=== PATIENT | male | born 1945 | race Hispanic/Latino ===

== ENCOUNTER 2016-11-08 11:57 | Inpatient (IN) | payer MEDICARE ==
[2016-11-08 11:57] VITALS: BMI 21.7
--- NOTE | 2016-11-08 13:32 | ED PDOC ---
HPI: Psych/Substance Abuse Time Seen by Provider: 11/08/16 13:30 Chief Complaint (Nursing): Psychiatric Evaluation Chief Complaint (Provider): [facility] eval/social work eval ED Caveat: Acuity of Condition Additional Complaint(s): 70yo M in ED for eval- pt has been evicted from his home-according to property custodian pt is a hoarder not willing to clean infestation in home, fecal matter in home and self, spoiled food in home. pt without confusion, or medical complaints of JONES, vision changes, SP, SOB, weakness or memory loss. Past Medical History Reviewed: Historical Data, Nursing Documentation, Vital Signs Vital Signs: Last Vital Signs Temp 97.6 F 11/08/16 11:59 Pulse 66 11/08/16 11:59 Resp 18 11/08/16 11:59 BP 120/74 11/08/16 11:59 Pulse Ox 96 11/08/16 11:59 - Medical History PMH: Malignancy (Prostate CA), Osteoporosis Denies: HIV, Chronic Kidney Disease - Family History Family History: States: Unknown Family Hx - Immunization History Hx Influenza Vaccination: No - Home Medications Home Medications: Ambulatory Orders Medication Instructions Recorded Aspirin [Ecotrin] 81 mg PO DAILY #30 tabec 10/25/16 Rosuvastatin Calcium [Crestor] 20 mg PO HS #30 tab 10/25/16 - Allergies Allergies/Adverse Reactions: Allergies Allergy/AdvReac Type Severity Reaction Status Date / Time No Known Allergies Allergy Verified 11/08/16 11:58 Review of Systems ROS Statement: Except As Marked, All Systems Reviewed And Found Negative Constitutional: Negative for: Fever, Chills, Weakness, Malaise Eyes: Negative for: Vision Change Cardiovascular: Negative for: Chest Pain, Palpitations Respiratory: Negative for: Cough, Shortness of Breath Gastrointestinal: Negative for: Nausea, Vomiting, Abdominal Pain, Diarrhea, Constipation Genitourinary Male: Negative for: Dysuria Neurological: Negative for: Weakness, Numbness, Incoordination, Change in Speech , Confusion, Seizures, Altered Mental Status, Headache, Dizziness Physical Exam - Reviewed Nursing Documentation Reviewed: Yes Vital Signs Reviewed: Yes - Physical Exam Appears: Positive for: Well, Non-toxic, No Acute Distress Head Exam: Positive for: ATRAUMATIC, NORMAL INSPECTION, NORMOCEPHALIC Skin: Positive for: Normal Color, Warm, DRY Eye Exam: Positive for: EOMI, Normal appearance, PERRL ENT: Positive for: Normal ENT Inspection Neck: Positive for: Normal, Painless ROM Cardiovascular/Chest: Positive for: Regular Rate, Rhythm Respiratory: Positive for: CNT, Normal Breath Sounds Gastrointestinal/Abdominal: Positive for: Normal Exam, Bowel Sounds, Soft Back: Positive for: Normal Inspection Extremity: Positive for: Normal ROM Neurologic/Psych: Positive for: Alert, 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 Negative for: Motor/Sensory Deficits, Gait (stable) - Laboratory Results Result Diagrams: 11/08/16 14:02 11/08/16 14:02 - ECG ECG: Positive for: Interpreted By Me ECG Rhythm: Positive for: Normal QRS, Normal ST Segment, Sinus Bradycardia Interpretation Of ECG: sinus bradycardia Rate: 52 O2 Sat by Pulse Oximetry: 96 - Progress ED Course And Treament: crisis eval, medical clearance vis lab and social work referral. Medical Decision Making Medical Decision Making: Social work refereed pt to crisis for further eval. Pt c/o that he is soiling himself an house because he is having diarrhea and dec. appetite. Pt will get CT scan of abd to r/o infectious colitis process. however pt is being admitted to [facility] for adjustment d/o under MD Seth. pt is unwilling to consent for IV contrast, pt unwilling to dirnk PO contrast therefore will get Ct scan without PO or IV contrast. Ct scna show colitis. pt without WBC inn ED, no diarrhea in ED, tolerated PO well in ED case discussed with MD daily pt will be started with ciprofloxacin and metronidazol for colitis otherwise pt is medically stable for admission to [facility] floor. Disposition - Clinical Impression Clinical Impression: Colitis, Adjustment disorder - Patient ED Disposition Is Patient to be Admitted: Yes - Disposition Disposition Time: 18:23 Condition: STABLE - Pt Status Changed To: Hospital Disposition Of: Inpatient - Admit Certification Admit to Inpatient:: After my assessment, the patient will require hospitalization for at least two midnights. This is because of the severity of symptoms shown, intensity of services needed, and/or the medical risk in this patient being treated as an outpatient. - POA Present On Arrival: None
[2016-11-08 14:09] LABS: BASO % 0.5 % (0.0-2.0); EOS # 0.1 K/uL (0.0-0.7); EOS % 1.6 % (0.0-4.0); HEMATOCRIT 34.2 % (35.0-51.0); LYMPH # 1.8 K/uL (1.0-4.3); LYMPH % 21.8 % (20.0-40.0); MEAN CELL VOLUME 88.4 fl (80.0-94.0); MEAN CORPUSCULAR HEMOGLOBIN 29.3 pg (27.0-31.0); MEAN CORPUSCULAR HGB CONC 33.1 g/dL (33.0-37.0); MEAN PLATELET VOLUME 6.7 fl (7.2-11.7); MONO # 0.4 K/uL (0.0-0.8); MONO % 5.4 % (0.0-10.0); NEUT # 5.8 K/uL (1.8-7.0); NEUT % 70.7 % (50.0-75.0); RED CELL DISTRIBUTION WIDTH 15.4 % (11.5-14.5); WHITE BLOOD COUNT 8.2 K/uL (4.8-10.8)
[2016-11-08 14:26] LABS: ALKALINE PHOSPHATASE 90 U/L (38-126); ALT/SGPT 24 U/L (21-72); AST/SGOT 27 U/L (17-59); BILIRUBIN,TOTAL 0.6 mg/dl (0.2-1.3); BLOOD UREA NITROGEN 22 mg/dl (9-20); CALCIUM 9.7 mg/dL (8.4-10.2); CARBON DIOXIDE 23 mmol/L (22-30); CHLORIDE 105 mmol/L (98-107); GFR AFRICAN-AMERICAN > 60; GLUCOSE,RANDOM 96 mg/dL (75-110); POTASSIUM 4.8 MMOL/L (3.6-5.0); SODIUM 139 mmol/l (132-148); TOTAL PROTEIN 7.7 G/DL (6.3-8.2)
[2016-11-08] MEDS ORDERED: Iohexol 240 (50 ml) PO ONE (15:07)
[2016-11-08] MEDS ORDERED: Iohexol 240 (50 ml) ONE (15:43)
[2016-11-08] MEDS ORDERED: Sodium Chloride 0.9% 0 ML IV ONE (16:55)
[2016-11-08] MEDS ORDERED: Iohexol 300 100 ML IJ ONE (16:55)
[2016-11-08 17:22] LABS: RBC URINE 4 /hpf (0-3); URINE BACTERIA FEW (<OCC); URINE BILIRUBIN NEGATIVE (NEGATIVE); URINE BLOOD NEGATIVE (NEGATIVE); URINE COLOR YELLOW (YELLOW); URINE GLUCOSE (UA) NEG (Normal); URINE KETONE TRACE mg/dL (NEGATIVE); URINE LEUKOCYTE ESTERASE NEG Leu/uL (Negative); URINE PROTEIN NEGATIVE (NEGATIVE); URINE UROBILINOGEN 0.2-1.0 mg/dL (0.2-1.0); WBC URINE < 1 /hpf (0-5)
--- NOTE | 2016-11-08 18:05 | CT ---
PROCEDURE: CT Abdomen and Pelvis without contrast. HISTORY: abdominal pain with diarrhea COMPARISON: No prior similar study available for comparison. TECHNIQUE: Contiguous axial images of the abdomen and pelvis. Oral contrast was administered. No IV contrast given. Coronal and Sagittal reformats generated. Radiation dose: Total exam DLP = 1012.7 mGy-cm. FINDINGS: LOWER THORAX: Linear opacities at the lung bases likely scar tissue. LIVER: Unremarkable. No gross lesion or ductal dilatation. GALLBLADDER AND BILE DUCTS: No evidence of acute cholecystitis. PANCREAS: Unremarkable. No mass. No ductal dilatation. SPLEEN: Unremarkable. No splenomegaly. ADRENALS: Unremarkable. KIDNEYS AND URETERS: Unremarkable. No stone or hydronephrosis. BLADDER: The urinary bladder is not fully distended therefore cannot be evaluated. REPRODUCTIVE: Unremarkable. APPENDIX: No evidence of appendicitis. BOWEL: Mildly distended large bowel loops contains fluid density stool and multiple air-fluid level. Mild diffuse large bowel wall thickening seen. Findings suggestive of mild colitis. There are also mildly dilated small bowel loops demonstrate mild wall thickening suspicious for enteritis. No evidence of bowel obstruction. PERITONEUM: Unremarkable. No fluid collection. No free air. LYMPH NODES: Unremarkable. No enlarged lymph nodes. VASCULATURE: Unremarkable. No aortic aneurysm. BONES: No fracture or destructive lesion. OTHER FINDINGS: There is fat containing 2.6 x 2.8 centimeter paraumbilical ventral hernia. IMPRESSION: Mildly dilated small and large bowel loops contains fluid density stool suggestive of enterocolitis. No evidence of bowel obstruction. No evidence of appendicitis. Stomach wall thickening versus food debris seen especially at the distal gastric body. If clinically warranted further assessment by upper GI study is suggested. The assessment of the GI is somewhat limited without oral contrast administration.
[2016-11-08 21:59] VITALS: O2SAT 98
[2016-11-08] MEDS ORDERED: Alum-Mag Hydrox-Simethicone Susp (30 mL) PO PRN (23:19)
[2016-11-08] MEDS ORDERED: Magnesium Hydroxide Susp 30 ml UD PO PRN (23:19)
[2016-11-08] MEDS ORDERED: Bismuth Subsalicylate 262 mg/15 ml Sus (240 ml) PO PRN (23:19)
--- NOTE | 2016-11-09 07:09 | CARD ---
APPROVED REPORT EKG Measurement Heart [id number] MD [id number] <Conclusion> Sinus bradycardia Otherwise normal ECG
[2016-11-09 08:04] LABS: T4 5.94 ug/dl (5.5-11.0)
[2016-11-09 08:18] LABS: THYROID STIMULATING HORMONE 2.49 mIU/ML (0.46-4.68)
--- NOTE | 2016-11-09 09:53 | PCM.PSYCH ---
Initial Psychiatric Evaluation - Initial Psychiatric Evaluation Type of Admission: Voluntary Legal Status: Capacity Chief Complaint (in patient's own words): "I got kicked out of my house" Patient's Reaction to Hospitalization: 70 year old, Single, , Male, w/ history of prostate cancer and osteoporosis, referred to ED due to hoarding behaviors. Pt stated that he was evicted from his co-op apartment since he is not able to pay his 2 bedroom apartment ever since the rent has increased. He reports feeling depressed due to his new homelessness. He also expressed concerns that his memory is worsening. As per EMS, pt presented to be a hoarder and has spoiled food all throughout his home. Pt has soiled fecal all over his house, and was covered in feces as per EMS report. Pt stated that he has been suffering from Diarrhea among other medical conditions. Pts affect was flat, and appeared to be guarded. Pt is currently a poor historian. Pt appears to have poor ADLs as evidenced by poor grooming, disheveled, long nails, and bad body odor. Pt appeared to look fragile, and ill. Pt denied having any psychiatric tx or hx. Pt reported having no financial support system at this time. Pt denied any thoughts of hurting self or others. Pt was calm and cooperative. Pts affect was congruent to his mood. Pt denied A/V/T hallucinations. Pt is oriented x3. Medical History: Prostate Cancer, Osteoporosis, HTN Past Psychiatric History: No significant psychiatric history, no admissions, no outpatient treatment, no current psychiatric medications or suicide attempts. Social History: +Hoarding, just evicted. Never , has one child (not currently in contact with). On SSI and has medicare. No current Home Health aide. No drugs/alcohol. +Cigarettes x50 years, stopped 1 year ago. 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 Family History: Mother with Alzheimers disease, no other family psychiatric history. Allergies: NKDA Current Medications: Active Medications Generic Name Dose Route Start Last Admin Trade Name Freq PRN Reason Stop Dose Admin Acetaminophen 650 mg 11/08/16 23:19 Tylenol 325mg Tab PO Q4 PRN Pain, moderate (4-7) Al Hydrox/Mg Hydrox/Simethicone 30 ml 11/08/16 23:19 Maalox Plus 30 Ml PO Q4 PRN Dyspepsia Bismuth Subsalicylate 524 mg 11/08/16 23:19 Pepto-Bismol PO Q4 PRN Diarrhea Lorazepam 0.5 mg 11/08/16 23:19 Ativan PO 11/22/16 23:20 HS PRN Insomnia Lorazepam 0.5 mg 11/08/16 23:19 Ativan PO 11/22/16 23:20 Q6 PRN Anixety/Agitation Magnesium Hydroxide 30 ml 11/08/16 23:19 Milk Of Magnesia PO HS PRN Constipation Past Psychiatric History - Past Psychiatric History Previous Treatment History: None Pertinent Medical Hx (Current Medical&Sleep Prob, Allergies): Allergies Allergy/AdvReac Type Severity Reaction Status Date / Time No Known Allergies Allergy Verified 11/08/16 11:58 Aspirin [Ecotrin] 81 mg PO DAILY #30 tabec 10/25/16 Rosuvastatin Calcium [Crestor] 20 mg PO HS #30 tab 10/25/16 Mental Status Examination - Personal Presentation Personal Presentation: Looks stated age Additional comments: Hair unkempt - Affect Affect: Constricted - Motor Activity Motor Activity: Calm - Reliability in Providing Information Reliability in Providing Information: Good - Speech Speech: Organized, Coherent - Mood Mood: Depressed - Formal Thought Process Formal Thought Process: No Impairment - Hallucinations/Delusions Additional comments: No AH/VH/delusions/paranoia - Obsessions/Compulsions Obsessions: No Compulsions: No - Cognitive Functions Orientation: Person, Place, Situation, Time Sensorium: Alert Estimate of Intelligence: Above Average Judgement: Intact, as evidence by: Insight regarding need for hospitalization Memory: Recent intact, as evidence by: Ability to recall events of the day - Risk Risk: Diminished functioning - Strength & Assets Inventory Strength & Assets Inventory: Cooperative - Limitations Limitations: Other (Just evicted) DSM 5 DX - DSM 5 DSM 5 Diagnosis: Adjustment Disorder with depressed mood - Recommended/Plan of Treatment Treatment Recommendations and Plan of Treatment: Impression: 70 year old, Single, , Male, w/ history of prostate cancer and osteoporosis, referred to ED due to hoarding behaviors, recently evicted, likely now has adjustment disorder with depressed mood. Plan: -Neurology consult re: acute decline in functioning, possible dementia -Psychology consult re: dementia -Admit to [facility] -Start Zoloft 25 mg PO HS; r/b/se reviewed -No 1:1 indicated -Routine medicine consult -Individual, group and milieu tx Projected ELOS: 5-7 days Discharge Plan and Discharge Criteria: Discharge when psychiatrically stable - Smoking Cessation Smoking Cessation Initiated: No Reason for not providing: Not indicated
--- NOTE | 2016-11-09 14:44 | CP.PCM.HP ---
History of Present Illness - History of Present Illness History of Present Illness: CC: Evicted from Home due to Hoarding and Unlivable condition History of Present Illness: A 70yo M was brought to the ER for evaluation after he has been evicted from his home-according to manager wireless. Patient is a hoarder not willing to clean infestations in home, fecal matter in home and self, spoiled food in home. He states he was evicted from his home because of payment delay and "the [employer] wanted to take his expensive house of [phone]". Denies hallucination or delusion. Patient without confusion, or medical complaints of JONES, vision changes, Speech Problem, SOB, weakness or memory loss. Denies fever or chills. Present on Admission - Present on Admission Any Indicators Present on Admission: No History of DVT/PE: No History of Uncontrolled Diabetes: No Urinary Catheter: No Decubitus Ulcer Present: No Review of Systems - Review of Systems All systems: reviewed and no additional remarkable complaints except Past Patient History - Infectious Disease Hx of Infectious Diseases: None - Past Medical History & Family History Past Medical History?: Yes Past Family History: Reviewed and not pertinent - Past Social History Smoking Status: Former Smoker Alcohol: None Drugs: Denies - CARDIAC Hx Cardiac Disorders: No Hx Hypertension: No - PULMONARY Hx Respiratory Disorders: No Hx Tuberculosis: No - NEUROLOGICAL Hx Neurological Disorder: No HX Cerebrovascular Accident: No Hx Seizures: No - HEENT Hx HEENT Problems: No - RENAL Hx Chronic Kidney Disease: No - ENDOCRINE/METABOLIC Hx Endocrine Disorders: No - HEMATOLOGICAL/ONCOLOGICAL Hx Blood Disorders: No Hx Human Immunodeficiency Virus (HIV): No - INTEGUMENTARY Hx Dermatological Problems: No - MUSCULOSKELETAL/RHEUMATOLOGICAL Hx Falls: Yes Hx Osteoporosis: Yes - GASTROINTESTINAL Hx Gastrointestinal Disorders: No - GENITOURINARY/GYNECOLOGICAL Hx Prostate Cancer: Yes - PSYCHIATRIC Hx Substance Use: No - SURGICAL HISTORY Hx Surgeries: Yes Hx Herniorrhaphy: Yes (@ 5 years old) - ANESTHESIA Hx Anesthesia: Yes Hx Anesthesia Reactions: No Meds Allergies/Adverse Reactions: Allergies Allergy/AdvReac Type Severity Reaction Status Date / Time No Known Allergies Allergy Verified 11/08/16 11:58 Physical Exam - Constitutional Appears: Chronically Ill - Head Exam Head Exam: ATRAUMATIC, NORMAL INSPECTION, NORMOCEPHALIC - Eye Exam Eye Exam: EOMI, Normal appearance, PERRL Pupil Exam: NORMAL ACCOMODATION, PERRL - ENT Exam ENT Exam: Mucous Membranes Moist, Normal Exam Additional comments: Poor Dental Dentition - Neck Exam Neck exam: Positive for: Full Rom, Normal Inspection - Respiratory Exam Respiratory Exam: Clear to Auscultation Bilateral, NORMAL BREATHING PATTERN - Cardiovascular Exam Cardiovascular Exam: REGULAR RHYTHM, +S1, +S2 - GI/Abdominal Exam GI & Abdominal Exam: Normal Bowel Sounds, Soft. absent: Tenderness - Extremities Exam Extremities exam: Positive for: normal inspection - Back Exam Back exam: NORMAL INSPECTION. absent: CVA tenderness (L), CVA tenderness (R) - Neurological Exam Neurological exam: Abnormal Gait, Alert, CN II-XII Intact, Oriented x3, Reflexes Normal - Psychiatric Exam Psychiatric exam: Depressed, Normal Mood - Skin Skin Exam: Dry, Intact, Normal Color, Warm Results - Vital Signs Recent Vital Signs: Last Vital Signs Temp 97 F L 11/09/16 06:00 Pulse 60 11/09/16 06:00 Resp 20 11/09/16 06:00 BP 125/61 11/09/16 06:00 Pulse Ox 98 11/08/16 21:59 - Labs Result Diagrams: 11/08/16 14:02 11/08/16 14:02 Labs: Laboratory Results - last 24 hr 11/09/16 07:16 Ferritin 144.0 Vitamin B12 261 Free T4 0.94 Thyroxine (T4) 5.94 TSH 3rd Generation 2.49 - EKG Data EKG Interpreted by: Other EKG shows normal: Sinus rhythm, [place], Intervals, QRS complexes, ST-T waves Rate: Normal - Imaging and Cardiology Ct Abdomen/Pelvis: Additional comment: IMPRESSION: Mildly dilated small and large bowel loops contains fluid density stool suggestive of enterocolitis. No evidence of bowel obstruction. No evidence of appendicitis. Stomach wall thickening versus food debris seen especially at the distal gastric body. If clinically warranted further assessment by upper GI study is suggested. The assessment of the GI is somewhat limited without oral contrast administration. Assessment & Plan (1) Hypertension Assessment and Plan: Well controlled Continue Current Care Continue to Monitor Status: Chronic Priority: Low (2) Prostate cancer Assessment and Plan: No urinary symptoms PSA Status: Chronic Priority: Low (3) Enterocolitis Assessment and Plan: Stool Work UP IV Cipro/Flagyl/Probiotics Status: Acute Priority: High (4) Dental caries Assessment and Plan: Follow up with Dentist Status: Chronic Priority: Low (5) Adjustment disorder Assessment and Plan: Major Depression Sertralie Status: Chronic Priority: High (6) Anemia Assessment and Plan: Normocytic Anemia ANmeia work UP Status: Chronic Priority: Low
--- NOTE | 2016-11-09 17:28 | CP.PCM.CON ---
History of Present Illness - History of Present Illness History of Present Illness: Mr. Bell is a 70-year-old man with a past medical history of depression and disorganized behavior, who states that the only reason he is in the hospital is because he was evicted from his home. He says that he was essentially conned out of his home by a school photographs detailer. He denies any focal weakness, sensory changes, headache, nausea, visual changes or balance problems. He uses crutches due to a left foot sprain. Review of Systems - Review of Systems All systems: reviewed and no additional remarkable complaints except - Constitutional Constitutional: As Per HPI - EENT Eyes: As Per HPI - Cardiovascular Cardiovascular: As Per HPI - Gastrointestinal Gastrointestinal: As Per HPI - Musculoskeletal Musculoskeletal: As Per HPI - Neurological Neurological: As Per HPI Past Patient History - Infectious Disease Hx of Infectious Diseases: None - Past Medical History & Family History Past Medical History?: Yes - Past Social History Smoking Status: Former Smoker - CARDIAC Hx Cardiac Disorders: No Hx Hypertension: No - PULMONARY Hx Respiratory Disorders: No Hx Tuberculosis: No - NEUROLOGICAL Hx Neurological Disorder: No HX Cerebrovascular Accident: No Hx Seizures: No - HEENT Hx HEENT Problems: No - RENAL Hx Chronic Kidney Disease: No - ENDOCRINE/METABOLIC Hx Endocrine Disorders: No - HEMATOLOGICAL/ONCOLOGICAL Hx Blood Disorders: No Hx Human Immunodeficiency Virus (HIV): No - INTEGUMENTARY Hx Dermatological Problems: No - MUSCULOSKELETAL/RHEUMATOLOGICAL Hx Falls: Yes Hx Osteoporosis: Yes - GASTROINTESTINAL Hx Gastrointestinal Disorders: No - GENITOURINARY/GYNECOLOGICAL Hx Prostate Cancer: Yes - PSYCHIATRIC Hx Substance Use: No - SURGICAL HISTORY Hx Surgeries: Yes Hx Herniorrhaphy: Yes (@ 5 years old) - ANESTHESIA Hx Anesthesia: Yes Hx Anesthesia Reactions: No Meds Allergies/Adverse Reactions: Allergies Allergy/AdvReac Type Severity Reaction Status Date / Time No Known Allergies Allergy Verified 11/08/16 11:58 - Medications Medications: Current Medications Acetaminophen (Tylenol 325mg Tab) 650 mg PO Q4 PRN PRN Reason: Pain, moderate (4-7) Al Hydrox/Mg Hydrox/Simethicone (Maalox Plus 30 Ml) 30 ml PO Q4 PRN PRN Reason: Dyspepsia Bismuth Subsalicylate (Pepto-Bismol) 524 mg PO Q4 PRN PRN Reason: Diarrhea Ciprofloxacin (Cipro) 500 mg PO Q12 JANIS Lorazepam (Ativan) 0.5 mg PO HS PRN PRN Reason: Insomnia Stop: 11/22/16 23:20 Lorazepam (Ativan) 0.5 mg PO Q6 PRN PRN Reason: Anixety/Agitation Stop: 11/22/16 23:20 Magnesium Hydroxide (Milk Of Magnesia) 30 ml PO HS PRN PRN Reason: Constipation Metronidazole (Flagyl) 500 mg PO Q8 JANIS Sertraline HCl (Zoloft) 25 mg PO DAILY JANIS Physical Exam - Constitutional Appears: Well - Head Exam Head Exam: ATRAUMATIC, NORMAL INSPECTION, NORMOCEPHALIC - Eye Exam Eye Exam: EOMI, Normal appearance, PERRL - Neck Exam Neck exam: Positive for: Normal Inspection - Respiratory Exam Respiratory Exam: Clear to Auscultation Bilateral, NORMAL BREATHING PATTERN - Cardiovascular Exam Cardiovascular Exam: REGULAR RHYTHM - Neurological Exam Neurological exam: Alert, CN II-XII Intact, Normal Gait, Oriented x3, Reflexes Normal Results - Vital Signs Recent Vital Signs: Last Vital Signs Temp 97.3 F L 11/09/16 15:51 Pulse 58 L 11/09/16 15:51 Resp 20 11/09/16 15:51 BP 96/69 L 11/09/16 15:51 Pulse Ox 98 11/08/16 21:59 - Labs Result Diagrams: 11/08/16 14:02 11/08/16 14:02 Labs: Laboratory Results - last 24 hr 11/09/16 07:16 Ferritin 144.0 Vitamin B12 261 Free T4 0.94 Thyroxine (T4) 5.94 TSH 3rd Generation 2.49 Assessment & Plan (1) Adjustment disorder Status: Chronic - Assessment and Plan (Free Text) Assessment: Disorganized thought and confusion is likely psychiatric in origin. However, CT scan of the head may be obtain to rule out underlying pathology. May check serum studies for thyroid function, B12, folate and heavy metal screen.
[2016-11-09 17:38] LABS: FOLATE 4.6 ng/mL
--- NOTE | 2016-11-10 08:44 | CP.PCM.CON ---
History of Present Illness - History of Present Illness History of Present Illness: Pt is a 70 year old male admitted to [facility] and referred to the feature writer for cognitive testing. On the DRS, pt scored an overall score of 122. Pt scored within normal limits on Attention, Construction, Memory and Conceptualization tasks. Pt's initiation skills fell in the Deficient Range. Results of the evaluation did not reveal significant/severe cognitive deficits. Overall 122 (125+ within normal limits) Construction 4 Conceptualization 32 Memory 26 Initiation 28 (32+ within normal limits) Attention 32 Thank you for this referral, Dr. Meneses Past Patient History - Infectious Disease Hx of Infectious Diseases: None - Past Medical History & Family History Past Medical History?: Yes Past Family History: Reviewed and not pertinent - Past Social History Smoking Status: Former Smoker Alcohol: None Drugs: Denies - CARDIAC Hx Cardiac Disorders: No Hx Hypertension: No - PULMONARY Hx Respiratory Disorders: No Hx Tuberculosis: No - NEUROLOGICAL Hx Neurological Disorder: No HX Cerebrovascular Accident: No Hx Seizures: No - HEENT Hx HEENT Problems: No - RENAL Hx Chronic Kidney Disease: No - ENDOCRINE/METABOLIC Hx Endocrine Disorders: No - HEMATOLOGICAL/ONCOLOGICAL Hx Blood Disorders: No Hx Human Immunodeficiency Virus (HIV): No - INTEGUMENTARY Hx Dermatological Problems: No - MUSCULOSKELETAL/RHEUMATOLOGICAL Hx Falls: Yes Hx Osteoporosis: Yes - GASTROINTESTINAL Hx Gastrointestinal Disorders: No - GENITOURINARY/GYNECOLOGICAL Hx Prostate Cancer: Yes - PSYCHIATRIC Hx Substance Use: No - SURGICAL HISTORY Hx Surgeries: Yes Hx Herniorrhaphy: Yes (@ 5 years old) - ANESTHESIA Hx Anesthesia: Yes Hx Anesthesia Reactions: No Meds Allergies/Adverse Reactions: Allergies Allergy/AdvReac Type Severity Reaction Status Date / Time No Known Allergies Allergy Verified 11/08/16 11:58 - Medications Medications: Current Medications Acetaminophen (Tylenol 325mg Tab) 650 mg PO Q4 PRN PRN Reason: Pain, moderate (4-7) Al Hydrox/Mg Hydrox/Simethicone (Maalox Plus 30 Ml) 30 ml PO Q4 PRN PRN Reason: Dyspepsia Bismuth Subsalicylate (Pepto-Bismol) 524 mg PO Q4 PRN PRN Reason: Diarrhea Ciprofloxacin (Cipro) 500 mg PO Q12 JANIS Last Admin: 11/09/16 21:17 Dose: 500 mg Cyanocobalamin (Vitamin B12 1000 Mcg Tab) 1,000 mcg PO DAILY [facility] Folic Acid (Folic Acid) 1 mg PO DAILY [facility] Lorazepam (Ativan) 0.5 mg PO HS PRN PRN Reason: Insomnia Stop: 11/22/16 23:20 Lorazepam (Ativan) 0.5 mg PO Q6 PRN PRN Reason: Anixety/Agitation Stop: 11/22/16 23:20 Magnesium Hydroxide (Milk Of Magnesia) 30 ml PO HS PRN PRN Reason: Constipation Metronidazole (Flagyl) 500 mg PO Q8 [facility] Last Admin: 11/10/16 00:31 Dose: 500 mg Sertraline HCl (Zoloft) 25 mg PO DAILY [facility] Last Admin: 11/09/16 17:40 Dose: 25 mg Thiamine HCl (Vitamin B1 Tab) 100 mg PO DAILY [facility] Results - Vital Signs Recent Vital Signs: Last Vital Signs Temp 98.1 F 11/10/16 05:58 Pulse 69 11/10/16 05:58 Resp 18 11/10/16 05:58 BP 104/63 11/10/16 05:58 Pulse Ox 98 11/08/16 21:59 - Labs Result Diagrams: 11/08/16 14:02 11/08/16 14:02 Labs: Laboratory Results - last 24 hr 11/09/16 07:16 Folate 4.6 RPR Nonreactive
[2016-11-10] MEDS: Lactobacillus Acidophilus 500 MU Cap PO SCH (17:38)
--- NOTE | 2016-11-10 18:02 | PCM.PYCHPN ---
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 defers recalling being covered in stool or in that of his apartment. staff report echeverria been seen about unit in wheelchair. was started on sertraline 25mg po yesterday denies notable side effects. Medical Problems: per chart Diagnostic Results: per psychiatry per psychology per nursing per social work per recreational therapy DSM 5 Symptoms Update: acute stress alteration in mood/?depression Medication Change: No Medical Record Reviewed: Yes Mental Status Examination - Cognitive Function Orientation: Person, Place, Situation, Time Attention: WNL Concentration: WNL Association: WNL Fund of Knowledge: WN Decription of patient's judgement and insights: somewhat impaired - Mood Mood: Depressed - Affect Affect: Constricted - Speech Speech: Soft - Formal Thought Process Formal Thought Process: No Impairment - Homicidal Ideation Homicidal Ideation: No Goal/Treatment Plan - Goal/Treatment Plan Need for Continued Stay: Remain at risks for inpatient hospitalization, Failed transitioning Progress Toward Problem(s) and Goals/Treatment Plan: inpt milieu adjust meds per status vital signs and clinical observation and per status falls precautions HOB with PO intake varied missing dentation discharge planning in process Estimated Date of D/C: 11/17/16 - Smoking Cessation Smoking Cessation Initiated: No Reason for not providing: deferred
--- NOTE | 2016-11-10 23:15 | CP.PCM.PN ---
Subjective - Date & Time of Evaluation Date of Evaluation: 11/10/16 Time of Evaluation: 19:25 Objective - Vital Signs/Intake and Output Vital Signs (last 24 hours): Temp Pulse Resp BP Pulse Ox 97.1 F L 76 19 90/68 L 98 11/10/16 15:53 11/10/16 15:53 11/10/16 15:53 11/10/16 15:53 11/08/16 21:59 - Medications Medications: Current Medications Acetaminophen (Tylenol 325mg Tab) 650 mg PO Q4 PRN PRN Reason: Pain, moderate (4-7) Al Hydrox/Mg Hydrox/Simethicone (Maalox Plus 30 Ml) 30 ml PO Q4 PRN PRN Reason: Dyspepsia Bismuth Subsalicylate (Pepto-Bismol) 524 mg PO Q4 PRN PRN Reason: Diarrhea Ciprofloxacin (Cipro) 500 mg PO Q12 [facility] Last Admin: 11/10/16 21:00 Dose: 500 mg Cyanocobalamin (Vitamin B12 1000 Mcg Tab) 1,000 mcg PO DAILY [facility] Last Admin: 11/10/16 11:00 Dose: 1,000 mcg Folic Acid (Folic Acid) 1 mg PO DAILY [facility] Last Admin: 11/10/16 09:44 Dose: 1 mg Lactobacillus Acidophilus (Bacid Acidophilus) 1 cap PO BID [facility] Last Admin: 11/10/16 17:38 Dose: 1 cap Lorazepam (Ativan) 0.5 mg PO HS PRN PRN Reason: Insomnia Stop: 11/22/16 23:20 Lorazepam (Ativan) 0.5 mg PO Q6 PRN PRN Reason: Anixety/Agitation Stop: 11/22/16 23:20 Magnesium Hydroxide (Milk Of Magnesia) 30 ml PO HS PRN PRN Reason: Constipation Metronidazole (Flagyl) 500 mg PO Q8 [facility] Last Admin: 11/10/16 16:25 Dose: 500 mg Sertraline HCl (Zoloft) 25 mg PO DAILY [facility] Last Admin: 11/10/16 11:00 Dose: 25 mg Thiamine HCl (Vitamin B1 Tab) 100 mg PO DAILY [facility] Last Admin: 11/10/16 09:44 Dose: 100 mg Assessment and Plan (1) Hypertension Status: Chronic (2) Prostate cancer Status: Chronic (3) Enterocolitis Status: Acute (4) Dental caries Status: Chronic (5) Adjustment disorder Status: Chronic (6) Anemia Status: Chronic
[2016-11-11] MEDS: Lactobacillus Acidophilus 500 MU Cap PO SCH ×2 (09:16→16:58)
--- NOTE | 2016-11-11 12:33 | PCM.PYCHPN ---
Psychiatric Progress Note - Psychiatric Progress Note Patient seen today, length of contact: chart reviewed, case discussed with team Patient Chief Complaint: pt is still depresed and withdrawn Medication Change: No Medical Record Reviewed: Yes Mental Status Examination - Cognitive Function Orientation: Person, Place, Situation, Time Attention: WNL Concentration: WNL Association: WNL Fund of Knowledge: WNL - Mood Mood: Depressed - Affect Affect: Constricted - Speech Speech: Soft - Formal Thought Process Formal Thought Process: No Impairment - Homicidal Ideation Homicidal Ideation: No Goal/Treatment Plan - Goal/Treatment Plan Need for Continued Stay: Remain at risks for inpatient hospitalization, Failed transitioning Estimated Date of D/C: 11/17/16
--- NOTE | 2016-11-11 20:39 | CP.PCM.PN ---
Subjective - Date & Time of Evaluation Date of Evaluation: 11/11/16 Time of Evaluation: 14:00 - Subjective Subjective: Seen and examined at the bed side. Denies Diarrhea, abdominal pain or fever/chills. Objective - Vital Signs/Intake and Output Vital Signs (last 24 hours): Temp Pulse Resp BP Pulse Ox 98.2 F 57 L 18 94/65 L 98 11/11/16 15:57 11/11/16 15:57 11/11/16 15:57 11/11/16 15:57 11/08/16 21:59 - Medications Medications: Current Medications Acetaminophen (Tylenol 325mg Tab) 650 mg PO Q4 PRN PRN Reason: Pain, moderate (4-7) Al Hydrox/Mg Hydrox/Simethicone (Maalox Plus 30 Ml) 30 ml PO Q4 PRN PRN Reason: Dyspepsia Bismuth Subsalicylate (Pepto-Bismol) 524 mg PO Q4 PRN PRN Reason: Diarrhea Ciprofloxacin (Cipro) 500 mg PO Q12 [facility] Last Admin: 11/11/16 09:15 Dose: 500 mg Cyanocobalamin (Vitamin B12 1000 Mcg Tab) 1,000 mcg PO DAILY [facility] Last Admin: 11/11/16 09:15 Dose: 1,000 mcg Folic Acid (Folic Acid) 1 mg PO DAILY [facility] Last Admin: 11/11/16 09:14 Dose: 1 mg Lactobacillus Acidophilus (Bacid Acidophilus) 1 cap PO BID [facility] Last Admin: 11/11/16 16:58 Dose: 1 cap Lorazepam (Ativan) 0.5 mg PO HS PRN PRN Reason: Insomnia Stop: 11/22/16 23:20 Lorazepam (Ativan) 0.5 mg PO Q6 PRN PRN Reason: Anixety/Agitation Stop: 11/22/16 23:20 Magnesium Hydroxide (Milk Of Magnesia) 30 ml PO HS PRN PRN Reason: Constipation Metronidazole (Flagyl) 500 mg PO Q8 [facility] Last Admin: 11/11/16 16:59 Dose: 500 mg Sertraline HCl (Zoloft) 25 mg PO DAILY [facility] Last Admin: 11/11/16 09:14 Dose: 25 mg Thiamine HCl (Vitamin B1 Tab) 100 mg PO DAILY [facility] Last Admin: 11/11/16 09:14 Dose: 100 mg - Constitutional Appears: Well, No Acute Distress - Head Exam Head Exam: ATRAUMATIC, NORMAL INSPECTION, NORMOCEPHALIC - Eye Exam Eye Exam: EOMI, Normal appearance, PERRL Pupil Exam: NORMAL ACCOMODATION, PERRL - ENT Exam ENT Exam: Mucous Membranes Moist, Normal Exam Additional comments: Poor dentition - Neck Exam Neck Exam: Full ROM, Normal Inspection. absent: Lymphadenopathy - Respiratory Exam Respiratory Exam: Clear to Ausculation Bilateral, NORMAL BREATHING PATTERN - Cardiovascular Exam Cardiovascular Exam: REGULAR RHYTHM, +S1, +S2. absent: Murmur - GI/Abdominal Exam GI & Abdominal Exam: Soft, Normal Bowel Sounds. absent: Tenderness - Extremities Exam Extremities Exam: Full ROM, Normal Capillary Refill, Normal Inspection. absent : Joint Swelling, Pedal Edema - Back Exam Back Exam: NORMAL INSPECTION - Neurological Exam Neurological Exam: Abnormal Gait, Alert, Awake, CN II-XII Intact, Oriented x3 - Psychiatric Exam Psychiatric exam: Normal Affect, Normal Mood - Skin Skin Exam: Dry, Intact, Normal Color, Warm Assessment and Plan (1) Hypertension Assessment & Plan: ROXANNE Continue to Monitor Status: Chronic (2) Prostate cancer Assessment & Plan: PSA Continue to Monitor Status: Chronic (3) Enterocolitis Assessment & Plan: Continue Cipro, Flagyl and Probiotics Status: Acute (4) Dental caries Assessment & Plan: Will need Dental Evaluation as an outpatient. Status: Chronic (5) Adjustment disorder Assessment & Plan: follow psych Recommendation Status: Chronic (6) Anemia Assessment & Plan: Monitor H/H Status: Chronic
[2016-11-12] MEDS: Lactobacillus Acidophilus 500 MU Cap PO SCH ×2 (09:30→17:24)
--- NOTE | 2016-11-12 14:05 | PCM.PYCHPN ---
Psychiatric Progress Note - Psychiatric Progress Note Patient seen today, length of contact: chart reviewed, case discussed with team Patient Chief Complaint: pt is still depresed and withdrawn Problems Identified/Issues Discussed: pt was admitted for depression as he was evicted from his appt. DSM 5 Symptoms Update: major depression Medication Change: No Medical Record Reviewed: Yes Mental Status Examination - Cognitive Function Orientation: Person, Place, Situation, Time Attention: WNL Concentration: WNL Association: WNL Fund of Knowledge: WNL - Mood Mood: Depressed - Affect Affect: Constricted - Speech Speech: Soft - Formal Thought Process Formal Thought Process: No Impairment - Homicidal Ideation Homicidal Ideation: No Goal/Treatment Plan - Goal/Treatment Plan Need for Continued Stay: Remain at risks for inpatient hospitalization, Failed transitioning Progress Toward Problem(s) and Goals/Treatment Plan: willcontinue zoloft and titrate as needed to stabilize the pt. Estimated Date of D/C: 11/17/16
--- NOTE | 2016-11-12 22:49 | CP.PCM.PN ---
Subjective - Date & Time of Evaluation Date of Evaluation: 11/12/16 Time of Evaluation: 10:30 - Subjective Subjective: States feeling down today, and prefers sleeping. Denies abdominal pain, diarrhea , fever or chills. Objective - Vital Signs/Intake and Output Vital Signs (last 24 hours): Temp Pulse Resp BP Pulse Ox 96.3 F L 74 20 100/73 98 11/12/16 18:00 11/12/16 18:00 11/12/16 18:00 11/12/16 18:00 11/08/16 21:59 - Medications Medications: Current Medications Acetaminophen (Tylenol 325mg Tab) 650 mg PO Q4 PRN PRN Reason: Pain, moderate (4-7) Al Hydrox/Mg Hydrox/Simethicone (Maalox Plus 30 Ml) 30 ml PO Q4 PRN PRN Reason: Dyspepsia Bismuth Subsalicylate (Pepto-Bismol) 524 mg PO Q4 PRN PRN Reason: Diarrhea Ciprofloxacin (Cipro) 500 mg PO Q12 [facility] Last Admin: 11/12/16 21:25 Dose: 500 mg Cyanocobalamin (Vitamin B12 1000 Mcg Tab) 1,000 mcg PO DAILY [facility] Last Admin: 11/12/16 09:24 Dose: 1,000 mcg Folic Acid (Folic Acid) 1 mg PO DAILY [facility] Last Admin: 11/12/16 09:24 Dose: 1 mg Lactobacillus Acidophilus (Bacid Acidophilus) 1 cap PO BID [facility] Last Admin: 11/12/16 17:24 Dose: 1 cap Lorazepam (Ativan) 0.5 mg PO HS PRN PRN Reason: Insomnia Stop: 11/22/16 23:20 Lorazepam (Ativan) 0.5 mg PO Q6 PRN PRN Reason: Anixety/Agitation Stop: 11/22/16 23:20 Magnesium Hydroxide (Milk Of Magnesia) 30 ml PO HS PRN PRN Reason: Constipation Metronidazole (Flagyl) 500 mg PO Q8 [facility] Last Admin: 11/12/16 17:24 Dose: 500 mg Sertraline HCl (Zoloft) 25 mg PO DAILY [facility] Last Admin: 11/12/16 09:24 Dose: 25 mg Thiamine HCl (Vitamin B1 Tab) 100 mg PO DAILY [facility] Last Admin: 11/12/16 09:24 Dose: 100 mg - Constitutional Appears: Well, No Acute Distress - Head Exam Head Exam: ATRAUMATIC, NORMAL INSPECTION, NORMOCEPHALIC - Eye Exam Eye Exam: EOMI, Normal appearance, PERRL Pupil Exam: NORMAL ACCOMODATION, PERRL - ENT Exam ENT Exam: Mucous Membranes Moist, Normal Exam - Neck Exam Neck Exam: Full ROM, Normal Inspection. absent: Lymphadenopathy - Respiratory Exam Respiratory Exam: Clear to Ausculation Bilateral, NORMAL BREATHING PATTERN - Cardiovascular Exam Cardiovascular Exam: REGULAR RHYTHM, +S1, +S2. absent: Murmur - GI/Abdominal Exam GI & Abdominal Exam: Soft, Normal Bowel Sounds. absent: Tenderness - Extremities Exam Extremities Exam: Normal Capillary Refill, Normal Inspection. absent: Joint Swelling, Pedal Edema - Back Exam Back Exam: NORMAL INSPECTION - Neurological Exam Neurological Exam: Abnormal Gait, Alert, Awake, CN II-XII Intact, Oriented x3 - Psychiatric Exam Psychiatric exam: Depressed. absent: Homicidal Ideation, Suicidal Ideation - Skin Skin Exam: Dry, Intact, Normal Color, Warm Assessment and Plan (1) Prostate cancer Status: Chronic (2) Enterocolitis Assessment & Plan: Improving Continue Ciprofloxacin and F;lagyl Status: Acute (3) Dental caries Status: Chronic (4) Adjustment disorder Assessment & Plan: Depression As per Psych Recommendation. Status: Chronic (5) Anemia Assessment & Plan: Borderline Will Monitor Status: Chronic
[2016-11-13] MEDS: Lactobacillus Acidophilus 500 MU Cap PO SCH ×2 (09:23→17:30)
[2016-11-13 15:47] LABS: BASO % 0.3 % (0.0-2.0); EOS # 0.1 K/uL (0.0-0.7); EOS % 1.4 % (0.0-4.0); HEMATOCRIT 34.9 % (35.0-51.0); LYMPH # 1.7 K/uL (1.0-4.3); LYMPH % 18.5 % (20.0-40.0); MEAN CELL VOLUME 89.2 fl (80.0-94.0); MEAN CORPUSCULAR HEMOGLOBIN 29.5 pg (27.0-31.0); MEAN CORPUSCULAR HGB CONC 33.1 g/dL (33.0-37.0); MEAN PLATELET VOLUME 6.9 fl (7.2-11.7); MONO # 0.7 K/uL (0.0-0.8); MONO % 7.7 % (0.0-10.0); NEUT # 6.8 K/uL (1.8-7.0); NEUT % 72.1 % (50.0-75.0); NRBC % 0.1 % (0.0-0.0); RED CELL DISTRIBUTION WIDTH 15.6 % (11.5-14.5); WHITE BLOOD COUNT 9.4 K/uL (4.8-10.8)
--- NOTE | 2016-11-13 16:55 | CP.PCM.CON ---
History of Present Illness - History of Present Illness History of Present Illness: This is a 70 yrs old male who in 2002 was diagnosed to have a prostate cancer. He had a biopsy at [facility] and was then started on Lupron for about 1 year. His PSA was stable , so the medication was stopped. He again had an increase in the PSA in 2007 at which time he had RT and was well until 2016,, he had a bone scan which ws normal, but the PSA wqas elevated. He was advised to take Probvenge, but stopped the medicine himself because he did not do well with the medicine. He has not had a PSA for almost 6 mos.He has no symptoms of bony pain, or problems urinating. He was brought to the ER because his landlord found out that he was hoarding, has loss of bowel control, and had gone all over the house.He has been hydratedand seems to be very calm at this time. Past Patient History - Infectious Disease Hx of Infectious Diseases: None - Past Medical History & Family History Past Medical History?: Yes Past Family History: Reviewed and not pertinent - Past Social History Smoking Status: Former Smoker Alcohol: None Drugs: Denies - CARDIAC Hx Cardiac Disorders: No Hx Hypertension: No - PULMONARY Hx Respiratory Disorders: No Hx Tuberculosis: No - NEUROLOGICAL Hx Neurological Disorder: No HX Cerebrovascular Accident: No Hx Seizures: No - HEENT Hx HEENT Problems: No - RENAL Hx Chronic Kidney Disease: No - ENDOCRINE/METABOLIC Hx Endocrine Disorders: No - HEMATOLOGICAL/ONCOLOGICAL Hx Blood Disorders: No Hx Human Immunodeficiency Virus (HIV): No - INTEGUMENTARY Hx Dermatological Problems: No - MUSCULOSKELETAL/RHEUMATOLOGICAL Hx Falls: Yes Hx Osteoporosis: Yes - GASTROINTESTINAL Hx Gastrointestinal Disorders: No - GENITOURINARY/GYNECOLOGICAL Hx Prostate Cancer: Yes - PSYCHIATRIC Hx Substance Use: No - SURGICAL HISTORY Hx Surgeries: Yes Hx Herniorrhaphy: Yes (@ 5 years old) - ANESTHESIA Hx Anesthesia: Yes Hx Anesthesia Reactions: No Meds Allergies/Adverse Reactions: Allergies Allergy/AdvReac Type Severity Reaction Status Date / Time No Known Allergies Allergy Verified 11/08/16 11:58 - Medications Medications: Current Medications Acetaminophen (Tylenol 325mg Tab) 650 mg PO Q4 PRN PRN Reason: Pain, moderate (4-7) Al Hydrox/Mg Hydrox/Simethicone (Maalox Plus 30 Ml) 30 ml PO Q4 PRN PRN Reason: Dyspepsia Bismuth Subsalicylate (Pepto-Bismol) 524 mg PO Q4 PRN PRN Reason: Diarrhea Ciprofloxacin (Cipro) 500 mg PO Q12 [facility] Last Admin: 11/13/16 09:22 Dose: 500 mg Cyanocobalamin (Vitamin B12 1000 Mcg Tab) 1,000 mcg PO DAILY [facility] Last Admin: 11/13/16 09:21 Dose: 1,000 mcg Folic Acid (Folic Acid) 1 mg PO DAILY [facility] Last Admin: 11/13/16 09:22 Dose: 1 mg Lactobacillus Acidophilus (Bacid Acidophilus) 1 cap PO BID [facility] Last Admin: 11/13/16 09:23 Dose: 1 cap Lorazepam (Ativan) 0.5 mg PO HS PRN PRN Reason: Insomnia Stop: 11/22/16 23:20 Lorazepam (Ativan) 0.5 mg PO Q6 PRN PRN Reason: Anixety/Agitation Stop: 11/22/16 23:20 Magnesium Hydroxide (Milk Of Magnesia) 30 ml PO HS PRN PRN Reason: Constipation Metronidazole (Flagyl) 500 mg PO Q8 [facility] Last Admin: 11/13/16 09:23 Dose: 500 mg Sertraline HCl (Zoloft) 50 mg PO DAILY [facility] Last Admin: 11/13/16 12:17 Dose: 50 mg Thiamine HCl (Vitamin B1 Tab) 100 mg PO DAILY [facility] Last Admin: 11/13/16 09:21 Dose: 100 mg Physical Exam - Additional Findings Additional findings: Physical Exam; Alert, well oriented in no acute distress Neck; Supple, no adenopathy Chest; Clear, no rales or rhonchi Heart; RSR, no murmur Abd; Soft, no mass,l no h/s megaly Results - Vital Signs Recent Vital Signs: Last Vital Signs Temp 97.1 F L 11/13/16 15:29 Pulse 64 11/13/16 15:29 Resp 20 11/13/16 15:29 BP 113/78 11/13/16 15:29 Pulse Ox 98 11/08/16 21:59 - Labs Result Diagrams: 11/13/16 15:00 11/08/16 14:02 Labs: Laboratory Results - last 24 hr 11/13/16 15:00 WBC 9.4 RBC 3.92 L Hgb 11.6 L Hct 34.9 L MCV 89.2 MCH 29.5 MCHC 33.1 RDW 15.6 H Plt Count 273 MPV 6.9 L Neut % (Auto) 72.1 Lymph % (Auto) 18.5 L Izard % (Auto) 7.7 Eos % (Auto) 1.4 Baso % (Auto) 0.3 Neut # 6.8 Lymph # 1.7 Izard # 0.7 Eos # 0.1 Baso # 0.0 Assessment & Plan - Assessment and Plan (Free Text) Assessment: IMP; Prostate cancer. Plan: Plan' Will do a test For PSA, urinalysis cbc - Date & Time Date: 11/13/16 Time: 17:31
[2016-11-13 17:55] LABS: RBC URINE 6 /hpf (0-3); URINE BACTERIA FEW (<OCC); URINE BILIRUBIN NEGATIVE (NEGATIVE); URINE BLOOD NEGATIVE (NEGATIVE); URINE COLOR YELLOW (YELLOW); URINE GLUCOSE (UA) NEG (Normal); URINE KETONE TRACE mg/dL (NEGATIVE); URINE LEUKOCYTE ESTERASE SMALL Leu/uL (Negative); URINE PROTEIN NEGATIVE (NEGATIVE); URINE UROBILINOGEN 0.2-1.0 mg/dL (0.2-1.0); WBC URINE 1 /hpf (0-5)
--- NOTE | 2016-11-13 17:58 | PCM.PYCHPN ---
Psychiatric Progress Note - Psychiatric Progress Note Patient seen today, length of contact: chart reviewed, case discussed with team Patient Chief Complaint: i have been through various thing including being evicted from my apartment two days ago, has expressed concerns to social work msw related to alternative living situation. pt has been seen ambulating in unit via use of wheelchair. pt was seen by dr. kaiser mora today/hematology-oncology related pt's hx of prostate ca. continues to express symptoms of depression is currently on sertraline 25mg po day x3 days. Problems Identified/Issues Discussed: recent reported loss of coop which was the culmination of a legal process involving the the [employer] board where he up until recently lived. 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 defers recalling being covered in stool or in that of his apartment. staff report echeverria been seen about unit in wheelchair. was started on sertraline 25mg po yesterday denies notable side effects. Medical Problems: per chart Diagnostic Results: per psychiatry per psychology per nursing per social work per recreational therapy DSM 5 Symptoms Update: alteration in mood alteration in self care alteration in cognition alteration in domicile Medication Change: Yes (increase sertraline to 50mg po day) Medical Record Reviewed: Yes Mental Status Examination - Cognitive Function Orientation: Person, Place, Situation, Time Attention: WNL Concentration: WNL Association: WNL Fund of Knowledge: WN Decription of patient's judgement and insights: impaired - Mood Mood: Depressed - Affect Affect: Constricted - Speech Speech: Soft - Formal Thought Process Formal Thought Process: No Impairment - Suicidal Ideation Suicidal Ideation: No - Homicidal Ideation Homicidal Ideation: No Goal/Treatment Plan - Goal/Treatment Plan Need for Continued Stay: Remain at risks for inpatient hospitalization, Failed transitioning Progress Toward Problem(s) and Goals/Treatment Plan: inpt milieu adjust meds per status-will increase sertraline to 50mg po day pt seen by dr kaiser mora-labs ordered per dr kaiser mora-psa/urinalysis vital signs and clinical observation and per status falls precautions HOB with PO intake varied missing dentation discharge planning in process Estimated Date of D/C: 11/17/16 - Smoking Cessation Smoking Cessation Initiated: No Reason for not providing: deferred
--- NOTE | 2016-11-13 23:44 | CP.PCM.PN ---
Objective - Vital Signs/Intake and Output Vital Signs (last 24 hours): Temp Pulse Resp BP Pulse Ox 97.1 F L 64 20 113/78 98 11/13/16 15:29 11/13/16 15:29 11/13/16 15:29 11/13/16 15:29 11/08/16 21:59 - Medications Medications: Current Medications Acetaminophen (Tylenol 325mg Tab) 650 mg PO Q4 PRN PRN Reason: Pain, moderate (4-7) Al Hydrox/Mg Hydrox/Simethicone (Maalox Plus 30 Ml) 30 ml PO Q4 PRN PRN Reason: Dyspepsia Bismuth Subsalicylate (Pepto-Bismol) 524 mg PO Q4 PRN PRN Reason: Diarrhea Ciprofloxacin (Cipro) 500 mg PO Q12 [facility] Last Admin: 11/13/16 21:20 Dose: 500 mg Cyanocobalamin (Vitamin B12 1000 Mcg Tab) 1,000 mcg PO DAILY [facility] Last Admin: 11/13/16 09:21 Dose: 1,000 mcg Folic Acid (Folic Acid) 1 mg PO DAILY [facility] Last Admin: 11/13/16 09:22 Dose: 1 mg Lactobacillus Acidophilus (Bacid Acidophilus) 1 cap PO BID [facility] Last Admin: 11/13/16 17:30 Dose: 1 cap Lorazepam (Ativan) 0.5 mg PO HS PRN PRN Reason: Insomnia Stop: 11/22/16 23:20 Lorazepam (Ativan) 0.5 mg PO Q6 PRN PRN Reason: Anixety/Agitation Stop: 11/22/16 23:20 Magnesium Hydroxide (Milk Of Magnesia) 30 ml PO HS PRN PRN Reason: Constipation Metronidazole (Flagyl) 500 mg PO Q8 [facility] Last Admin: 11/13/16 17:23 Dose: 500 mg Sertraline HCl (Zoloft) 50 mg PO DAILY [facility] Last Admin: 11/13/16 12:17 Dose: 50 mg Thiamine HCl (Vitamin B1 Tab) 100 mg PO DAILY [facility] Last Admin: 11/13/16 09:21 Dose: 100 mg - Labs Labs: 11/13/16 15:00 Assessment and Plan (1) Prostate cancer Status: Chronic (2) Enterocolitis Status: Acute (3) Dental caries Status: Chronic (4) Adjustment disorder Status: Chronic (5) Anemia Status: Chronic
[2016-11-14] MEDS: Lactobacillus Acidophilus 500 MU Cap PO SCH ×2 (08:29→16:10)
--- NOTE | 2016-11-14 17:35 | PCM.PYCHPN ---
Psychiatric Progress Note - Psychiatric Progress Note Patient seen today, length of contact: chart reviewed, case discussed with team Patient Chief Complaint: pt is seen about unit, has had a hair cut, reports mood although worried as to where he will stay is somewhat improved. staff report pt adherent with treatment. pt denies side effects with medication. 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 defers recalling being covered in stool or in that of his apartment. staff report echeverria been seen about unit in wheelchair. was started on sertraline 25mg po yesterday denies notable side effects. Medical Problems: per chart Diagnostic Results: per psychiatry per psychology per nursing per social work per recreational therapy DSM 5 Symptoms Update: alteration in mood alteration in cognition Medication Change: No Medical Record Reviewed: Yes Mental Status Examination - Cognitive Function Orientation: Person, Place, Situation, Time Attention: WNL Concentration: WNL Association: WN Fund of Knowledge: [facility] Decription of patient's judgement and insights: impaired - Mood Mood: Depressed - Affect Affect: Constricted - Speech Speech: Soft - Formal Thought Process Formal Thought Process: No Impairment - Suicidal Ideation Suicidal Ideation: No - Homicidal Ideation Homicidal Ideation: No Goal/Treatment Plan - Goal/Treatment Plan Need for Continued Stay: Remain at risks for inpatient hospitalization, Failed transitioning Progress Toward Problem(s) and Goals/Treatment Plan: inpt milieu adjust meds per status vital signs and clinical observation and per status falls precautions HOB with PO intake varied missing dentation discharge planning in process Estimated Date of D/C: 11/17/16 - Smoking Cessation Smoking Cessation Initiated: No Reason for not providing: pt deferred
[2016-11-14 20:29] LABS: TOTAL PSA 8.6 ng/mL (<=4.0)
--- NOTE | 2016-11-14 23:24 | CP.PCM.PN ---
Objective - Vital Signs/Intake and Output Vital Signs (last 24 hours): Temp Pulse Resp BP Pulse Ox 97.1 F L 69 20 110/75 98 11/14/16 16:12 11/14/16 16:12 11/14/16 16:12 11/14/16 16:12 11/08/16 21:59 - Medications Medications: Current Medications Acetaminophen (Tylenol 325mg Tab) 650 mg PO Q4 PRN PRN Reason: Pain, moderate (4-7) Al Hydrox/Mg Hydrox/Simethicone (Maalox Plus 30 Ml) 30 ml PO Q4 PRN PRN Reason: Dyspepsia Bismuth Subsalicylate (Pepto-Bismol) 524 mg PO Q4 PRN PRN Reason: Diarrhea Ciprofloxacin (Cipro) 500 mg PO Q12 [facility] Last Admin: 11/14/16 21:00 Dose: 500 mg Cyanocobalamin (Vitamin B12 1000 Mcg Tab) 1,000 mcg PO DAILY [facility] Last Admin: 11/14/16 08:31 Dose: 1,000 mcg Folic Acid (Folic Acid) 1 mg PO DAILY [facility] Last Admin: 11/14/16 08:30 Dose: 1 mg Lactobacillus Acidophilus (Bacid Acidophilus) 1 cap PO BID [facility] Last Admin: 11/14/16 16:10 Dose: 1 cap Lorazepam (Ativan) 0.5 mg PO HS PRN PRN Reason: Insomnia Stop: 11/22/16 23:20 Lorazepam (Ativan) 0.5 mg PO Q6 PRN PRN Reason: Anixety/Agitation Stop: 11/22/16 23:20 Magnesium Hydroxide (Milk Of Magnesia) 30 ml PO HS PRN PRN Reason: Constipation Metronidazole (Flagyl) 500 mg PO Q8 [facility] Last Admin: 11/14/16 16:10 Dose: 500 mg Sertraline HCl (Zoloft) 50 mg PO DAILY [facility] Last Admin: 11/14/16 08:30 Dose: 50 mg Thiamine HCl (Vitamin B1 Tab) 100 mg PO DAILY [facility] Last Admin: 11/14/16 08:31 Dose: 100 mg - Labs Labs: 11/13/16 15:00 Assessment and Plan (1) Prostate cancer Status: Chronic (2) Enterocolitis Status: Acute (3) Dental caries Status: Chronic (4) Adjustment disorder Status: Chronic (5) Anemia Status: Chronic
[2016-11-15] MEDS: Lactobacillus Acidophilus 500 MU Cap PO SCH ×2 (08:35→16:20)
--- NOTE | 2016-11-15 21:35 | PCM.PYCHPN ---
Psychiatric Progress Note - Psychiatric Progress Note Patient seen today, length of contact: chart reviewed, case discussed with team Patient Chief Complaint: pt is seen about unit, has had a hair cut, reports mood although worried as to where he will stay is somewhat improved. staff report pt adherent with treatment. pt denies side effects with medication. 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 defers recalling being covered in stool or in that of his apartment. staff report echeverria been seen about unit in wheelchair. was started on sertraline 25mg po yesterday denies notable side effects. Medical Problems: per chart Diagnostic Results: per psychiatry per psychology per nursing per social work per recreational therapy DSM 5 Symptoms Update: changes in mood changes in cognition changes in self care Medication Change: No Medical Record Reviewed: Yes Mental Status Examination - Cognitive Function Orientation: Person, Place, Situation, Time Attention: WNL Concentration: WNL Association: WNL Fund of Knowledge: WN Decription of patient's judgement and insights: impaired - Mood Mood: Depressed - Affect Affect: Constricted - Speech Speech: Soft - Formal Thought Process Formal Thought Process: No Impairment - Suicidal Ideation Suicidal Ideation: No - Homicidal Ideation Homicidal Ideation: No Goal/Treatment Plan - Goal/Treatment Plan Need for Continued Stay: Remain at risks for inpatient hospitalization, Failed transitioning Progress Toward Problem(s) and Goals/Treatment Plan: inpt milieu adjust meds per status vital signs and clinical observation and per status falls precautions HOB with PO intake varied missing dentation discharge planning in process Estimated Date of D/C: 11/17/16 - Smoking Cessation Smoking Cessation Initiated: No Reason for not providing: pt deferred
--- NOTE | 2016-11-16 00:31 | CP.PCM.PN ---
Subjective - Date & Time of Evaluation Date of Evaluation: 11/15/16 Time of Evaluation: 19:15 Objective - Vital Signs/Intake and Output Vital Signs (last 24 hours): Temp Pulse Resp BP Pulse Ox 97.7 F 57 L 20 115/74 98 11/15/16 15:52 11/15/16 15:52 11/15/16 15:52 11/15/16 15:52 11/08/16 21:59 - Medications Medications: Current Medications Acetaminophen (Tylenol 325mg Tab) 650 mg PO Q4 PRN PRN Reason: Pain, moderate (4-7) Al Hydrox/Mg Hydrox/Simethicone (Maalox Plus 30 Ml) 30 ml PO Q4 PRN PRN Reason: Dyspepsia Bismuth Subsalicylate (Pepto-Bismol) 524 mg PO Q4 PRN PRN Reason: Diarrhea Ciprofloxacin (Cipro) 500 mg PO Q12 [facility] Stop: 11/17/16 09:01 Cyanocobalamin (Vitamin B12 1000 Mcg Tab) 1,000 mcg PO DAILY [facility] Last Admin: 11/15/16 14:18 Dose: 1,000 mcg Folic Acid (Folic Acid) 1 mg PO DAILY [facility] Last Admin: 11/15/16 08:35 Dose: 1 mg Lactobacillus Acidophilus (Bacid Acidophilus) 1 cap PO BID [facility] Last Admin: 11/15/16 16:20 Dose: 1 cap Lorazepam (Ativan) 0.5 mg PO HS PRN PRN Reason: Insomnia Stop: 11/22/16 23:20 Lorazepam (Ativan) 0.5 mg PO Q6 PRN PRN Reason: Anixety/Agitation Stop: 11/22/16 23:20 Magnesium Hydroxide (Milk Of Magnesia) 30 ml PO HS PRN PRN Reason: Constipation Metronidazole (Flagyl) 500 mg PO Q8 [facility] Sertraline HCl (Zoloft) 50 mg PO DAILY [facility] Last Admin: 11/15/16 08:35 Dose: 50 mg Thiamine HCl (Vitamin B1 Tab) 100 mg PO DAILY [facility] Last Admin: 11/15/16 08:35 Dose: 100 mg - Labs Labs: 11/13/16 15:00 Assessment and Plan (1) Prostate cancer Status: Chronic (2) Enterocolitis Status: Acute (3) Dental caries Status: Chronic (4) Adjustment disorder Status: Chronic (5) Anemia Status: Chronic
--- NOTE | 2016-11-16 16:07 | PCM.PYCHPN ---
Psychiatric Progress Note - Psychiatric Progress Note Patient seen today, length of contact: chart reviewed, case discussed with team Patient Chief Complaint: pt is seen about unit, has had a hair cut, reports mood although worried as to where he will stay is somewhat improved. staff report pt adherent with treatment. pt denies side effects with medication. Problems Identified/Issues Discussed: faced with recent loss of coop, loss of domicile, pending possible placement, some sadness related to changes in LOF, staff report pt is adherent with medications Medical Problems: per chart Diagnostic Results: per psychiatry per psychology per nursing per social work per recreational therapy DSM 5 Symptoms Update: alteration in mood alteration in self care alteration in cognition Medication Change: No Medical Record Reviewed: Yes Mental Status Examination - Cognitive Function Orientation: Person, Place, Situation, Time Attention: WNL Concentration: WNL Association: WNL Fund of Knowledge: [facility] Decription of patient's judgement and insights: impaired - Mood Mood: Depressed - Affect Affect: Constricted - Speech Speech: Soft - Formal Thought Process Formal Thought Process: No Impairment - Suicidal Ideation Suicidal Ideation: No - Homicidal Ideation Homicidal Ideation: No Goal/Treatment Plan - Goal/Treatment Plan Need for Continued Stay: Remain at risks for inpatient hospitalization, Failed transitioning Progress Toward Problem(s) and Goals/Treatment Plan: inpt milieu adjust meds per status vital signs and clinical observation and per status falls precautions HOB with PO intake varied missing dentation discharge planning in process-perinatal social worker working with placement Estimated Date of D/C: 11/21/16 - Smoking Cessation Smoking Cessation Initiated: No Reason for not providing: deferred
[2016-11-16] MEDS: Lactobacillus Acidophilus 500 MU Cap PO SCH (17:11)
--- NOTE | 2016-11-16 22:24 | CP.PCM.PN ---
Subjective - Date & Time of Evaluation Date of Evaluation: 11/16/16 Time of Evaluation: 15:00 Objective - Vital Signs/Intake and Output Vital Signs (last 24 hours): Temp Pulse Resp BP Pulse Ox 99 F 66 18 104/65 98 11/16/16 16:24 11/16/16 16:24 11/16/16 16:24 11/16/16 16:24 11/08/16 21:59 - Medications Medications: Current Medications Acetaminophen (Tylenol 325mg Tab) 650 mg PO Q4 PRN PRN Reason: Pain, moderate (4-7) Al Hydrox/Mg Hydrox/Simethicone (Maalox Plus 30 Ml) 30 ml PO Q4 PRN PRN Reason: Dyspepsia Bismuth Subsalicylate (Pepto-Bismol) 524 mg PO Q4 PRN PRN Reason: Diarrhea Ciprofloxacin (Cipro) 500 mg PO Q12 [facility] Stop: 11/17/16 09:01 Last Admin: 11/16/16 21:14 Dose: 500 mg Cyanocobalamin (Vitamin B12 1000 Mcg Tab) 1,000 mcg PO DAILY [facility] Last Admin: 11/16/16 08:52 Dose: 1,000 mcg Folic Acid (Folic Acid) 1 mg PO DAILY [facility] Last Admin: 11/16/16 08:53 Dose: 1 mg Lactobacillus Acidophilus (Bacid Acidophilus) 1 cap PO BID [facility] Last Admin: 11/16/16 17:11 Dose: 1 cap Lorazepam (Ativan) 0.5 mg PO HS PRN PRN Reason: Insomnia Stop: 11/22/16 23:20 Lorazepam (Ativan) 0.5 mg PO Q6 PRN PRN Reason: Anixety/Agitation Stop: 11/22/16 23:20 Magnesium Hydroxide (Milk Of Magnesia) 30 ml PO HS PRN PRN Reason: Constipation Metronidazole (Flagyl) 500 mg PO Q8 [facility] Last Admin: 11/16/16 17:11 Dose: 500 mg Sertraline HCl (Zoloft) 50 mg PO DAILY [facility] Last Admin: 11/16/16 08:52 Dose: 50 mg Thiamine HCl (Vitamin B1 Tab) 100 mg PO DAILY [facility] Last Admin: 11/16/16 08:52 Dose: 100 mg - Labs Labs: 11/13/16 15:00 Assessment and Plan (1) Prostate cancer Status: Chronic (2) Enterocolitis Status: Acute (3) Dental caries Status: Chronic (4) Adjustment disorder Status: Chronic (5) Anemia Status: Chronic
[2016-11-17] MEDS: Lactobacillus Acidophilus 500 MU Cap PO SCH ×3 (08:47→17:30)
--- NOTE | 2016-11-17 19:52 | PCM.PYCHPN ---
Psychiatric Progress Note - Psychiatric Progress Note Patient seen today, length of contact: chart reviewed, case discussed with team Patient Chief Complaint: pt is seen about unit, has had a hair cut, reports mood although worried as to where he will stay is somewhat improved. staff report pt adherent with treatment. pt denies side effects with medication-reports mood is improving. Problems Identified/Issues Discussed: faced with recent loss of coop, loss of domicile, pending possible placement, some sadness related to changes in LOF, staff report pt is adherent with medications Medical Problems: per chart Diagnostic Results: per psychiatry per psychology per nursing per social work per recreational therapy DSM 5 Symptoms Update: alteration in mood alteration in cognition alteration in self care Medication Change: No Medical Record Reviewed: Yes Mental Status Examination - Cognitive Function Orientation: Person, Place, Situation, Time Attention: WNL Concentration: WNL Association: WNL Fund of Knowledge: WNL Decription of patient's judgement and insights: somewhat impaired - Mood Mood: Depressed - Affect Affect: Constricted - Speech Speech: Soft - Formal Thought Process Formal Thought Process: No Impairment - Suicidal Ideation Suicidal Ideation: No - Homicidal Ideation Homicidal Ideation: No Goal/Treatment Plan - Goal/Treatment Plan Need for Continued Stay: Remain at risks for inpatient hospitalization, Failed transitioning Progress Toward Problem(s) and Goals/Treatment Plan: inpt milieu adjust meds per status vital signs and clinical observation and per status falls precautions HOB with PO intake varied missing dentation discharge planning in process-rn social work working with placement Estimated Date of D/C: 11/21/16 - Smoking Cessation Smoking Cessation Initiated: No Reason for not providing: defer
[2016-11-18] MEDS: Lactobacillus Acidophilus 500 MU Cap PO SCH ×2 (09:07→17:59)
--- NOTE | 2016-11-18 12:09 | PCM.PYCHPN ---
Psychiatric Progress Note - Psychiatric Progress Note Patient seen today, length of contact: chart reviewed, case discussed with team Patient Chief Complaint: i can't sleep Problems Identified/Issues Discussed: pt looks depressed. complains of low energy. poor sleep. denies problems with appetite. Medication Change: No Medical Record Reviewed: Yes Mental Status Examination - Cognitive Function Orientation: Person, Place, Situation, Time Attention: WNL Concentration: WNL Association: WNL Fund of Knowledge: WNL Decription of patient's judgement and insights: fair - Mood Mood: Depressed - Affect Affect: Constricted - Speech Speech: Soft - Formal Thought Process Formal Thought Process: No Impairment - Suicidal Ideation Suicidal Ideation: No - Homicidal Ideation Homicidal Ideation: No Goal/Treatment Plan - Goal/Treatment Plan Need for Continued Stay: Remain at risks for inpatient hospitalization, Failed transitioning Progress Toward Problem(s) and Goals/Treatment Plan: major depression will add low dose seroquel for mood/sleep continue care per primary team Estimated Date of D/C: 11/21/16
--- NOTE | 2016-11-18 22:24 | CP.PCM.PN ---
Subjective - Date & Time of Evaluation Date of Evaluation: 11/18/16 Time of Evaluation: 17:00 Objective - Vital Signs/Intake and Output Vital Signs (last 24 hours): Temp Pulse Resp BP Pulse Ox 97.5 F L 81 20 109/71 98 11/18/16 16:55 11/18/16 16:55 11/18/16 16:55 11/18/16 16:55 11/08/16 21:59 - Medications Medications: Current Medications Acetaminophen (Tylenol 325mg Tab) 650 mg PO Q4 PRN PRN Reason: Pain, moderate (4-7) Al Hydrox/Mg Hydrox/Simethicone (Maalox Plus 30 Ml) 30 ml PO Q4 PRN PRN Reason: Dyspepsia Bismuth Subsalicylate (Pepto-Bismol) 524 mg PO Q4 PRN PRN Reason: Diarrhea Cyanocobalamin (Vitamin B12 1000 Mcg Tab) 1,000 mcg PO DAILY [facility] Last Admin: 11/18/16 09:06 Dose: 1,000 mcg Folic Acid (Folic Acid) 1 mg PO DAILY [facility] Last Admin: 11/18/16 09:06 Dose: 1 mg Lactobacillus Acidophilus (Bacid Acidophilus) 1 cap PO BID [facility] Last Admin: 11/18/16 17:59 Dose: 1 cap Lorazepam (Ativan) 0.5 mg PO HS PRN PRN Reason: Insomnia Stop: 11/22/16 23:20 Lorazepam (Ativan) 0.5 mg PO Q6 PRN PRN Reason: Anixety/Agitation Stop: 11/22/16 23:20 Magnesium Hydroxide (Milk Of Magnesia) 30 ml PO HS PRN PRN Reason: Constipation Metronidazole (Flagyl) 500 mg PO Q8 [facility] Last Admin: 11/18/16 17:59 Dose: 500 mg Nystatin (Nystop Topical Powder) 1 applic TOP DAILY [facility] Last Admin: 11/18/16 17:59 Dose: 1 pdr Quetiapine Fumarate (Seroquel) 12.5 mg PO HS [facility] Last Admin: 11/18/16 21:16 Dose: 12.5 mg Sertraline HCl (Zoloft) 50 mg PO DAILY [facility] Last Admin: 11/18/16 09:06 Dose: 50 mg Thiamine HCl (Vitamin B1 Tab) 100 mg PO DAILY [facility] Last Admin: 11/18/16 09:06 Dose: 100 mg - Labs Labs: 11/13/16 15:00 Assessment and Plan (1) Prostate cancer Status: Chronic (2) Enterocolitis Status: Acute (3) Dental caries Status: Chronic (4) Adjustment disorder Status: Chronic (5) Anemia Status: Chronic
[2016-11-19] MEDS: Lactobacillus Acidophilus 500 MU Cap PO SCH ×2 (09:19→16:29)
--- NOTE | 2016-11-19 13:33 | PCM.PYCHPN ---
Psychiatric Progress Note - Psychiatric Progress Note Patient seen today, length of contact: discussed with team Patient Chief Complaint: i feel a little better Problems Identified/Issues Discussed: pt looks a little bright today. sleep is improving. no c/o medication side effects. Medication Change: No Medical Record Reviewed: Yes Mental Status Examination - Cognitive Function Orientation: Person, Place, Situation, Time Attention: WNL Concentration: WNL Association: WNL Fund of Knowledge: WNL Decription of patient's judgement and insights: fair - Mood Mood: Depressed - Affect Affect: Constricted - Speech Speech: Soft - Formal Thought Process Formal Thought Process: No Impairment - Suicidal Ideation Suicidal Ideation: No - Homicidal Ideation Homicidal Ideation: No Goal/Treatment Plan - Goal/Treatment Plan Need for Continued Stay: Remain at risks for inpatient hospitalization, Failed transitioning Progress Toward Problem(s) and Goals/Treatment Plan: major depression will increase eroquel for mood/sleep continue care per primary team Estimated Date of D/C: 11/21/16
--- NOTE | 2016-11-19 22:29 | CP.PCM.PN ---
Subjective - Date & Time of Evaluation Date of Evaluation: 11/19/16 Time of Evaluation: 22:00 Objective - Vital Signs/Intake and Output Vital Signs (last 24 hours): Temp Pulse Resp BP Pulse Ox 98.2 F 65 20 106/60 98 11/19/16 16:07 11/19/16 16:07 11/19/16 16:07 11/19/16 16:07 11/08/16 21:59 - Medications Medications: Current Medications Acetaminophen (Tylenol 325mg Tab) 650 mg PO Q4 PRN PRN Reason: Pain, moderate (4-7) Al Hydrox/Mg Hydrox/Simethicone (Maalox Plus 30 Ml) 30 ml PO Q4 PRN PRN Reason: Dyspepsia Bismuth Subsalicylate (Pepto-Bismol) 524 mg PO Q4 PRN PRN Reason: Diarrhea Cyanocobalamin (Vitamin B12 1000 Mcg Tab) 1,000 mcg PO DAILY [facility] Last Admin: 11/19/16 09:20 Dose: 1,000 mcg Folic Acid (Folic Acid) 1 mg PO DAILY [facility] Last Admin: 11/19/16 09:20 Dose: 1 mg Lactobacillus Acidophilus (Bacid Acidophilus) 1 cap PO BID [facility] Last Admin: 11/19/16 16:29 Dose: 1 cap Lorazepam (Ativan) 0.5 mg PO HS PRN PRN Reason: Insomnia Stop: 11/22/16 23:20 Lorazepam (Ativan) 0.5 mg PO Q6 PRN PRN Reason: Anixety/Agitation Stop: 11/22/16 23:20 Magnesium Hydroxide (Milk Of Magnesia) 30 ml PO HS PRN PRN Reason: Constipation Metronidazole (Flagyl) 500 mg PO Q8 [facility] Last Admin: 11/19/16 16:29 Dose: 500 mg Nystatin (Nystop Topical Powder) 1 applic TOP DAILY [facility] Last Admin: 11/19/16 01:00 Dose: 1 pdr Quetiapine Fumarate (Seroquel) 25 mg PO HS [facility] Last Admin: 11/19/16 21:23 Dose: 25 mg Sertraline HCl (Zoloft) 50 mg PO DAILY [facility] Last Admin: 11/19/16 09:20 Dose: 50 mg Thiamine HCl (Vitamin B1 Tab) 100 mg PO DAILY [facility] Last Admin: 11/19/16 09:20 Dose: 100 mg - Labs Labs: 11/13/16 15:00 Assessment and Plan (1) Prostate cancer Status: Chronic (2) Enterocolitis Status: Acute (3) Dental caries Status: Chronic (4) Adjustment disorder Status: Chronic (5) Anemia Status: Chronic
[2016-11-20] MEDS: Lactobacillus Acidophilus 500 MU Cap PO SCH ×2 (08:27→16:26)
--- NOTE | 2016-11-20 14:50 | PCM.PYCHPN ---
Psychiatric Progress Note - Psychiatric Progress Note Patient seen today, length of contact: Chart reviewed, case discussed with team , patient evaluated, 35 min Patient Chief Complaint: "I'm okay" Problems Identified/Issues Discussed: No significant events over the weekend. The patient continues to be depressed. He was lying in bed and was minimally interested in talking with the marketing underwriter. 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 He has depressed affect and seems hopeless at times. Medication Change: No Medical Record Reviewed: Yes Mental Status Examination - Cognitive Function Orientation: Person, Place, Situation, Time Memory: Intact Attention: WNL Concentration: WNL Association: WN Fund of Knowledge: [facility] Decription of patient's judgement and insights: Fair I/J - Mood Mood: Depressed - Affect Affect: Constricted - Speech Speech: Soft - Formal Thought Process Formal Thought Process: No Impairment Psychotic Thoughts and Behaviors: NO AH/VH/paranoia - Suicidal Ideation Suicidal Ideation: No - Homicidal Ideation Homicidal Ideation: No Goal/Treatment Plan - Goal/Treatment Plan Need for Continued Stay: Remain at risks for inpatient hospitalization, Severe depression anxiety, Failed transitioning Progress Toward Problem(s) and Goals/Treatment Plan: Impression: 70 year old, Single, , Male, w/ history of prostate cancer and osteoporosis, referred to ED due to hoarding behaviors, recently evicted, likely now has adjustment disorder with depressed mood. Patient continues to be very depressed and requires continued inpatient treatment for safety and stabilization. Plan: -Continue Zoloft 50 mg PO Daily and Seroquel 25 mg PO HS; will consider titrating the medication -Individual, group and milieu tx Estimated Date of D/C: 11/24/16
--- NOTE | 2016-11-20 22:54 | CP.PCM.PN ---
Subjective - Date & Time of Evaluation Date of Evaluation: 11/20/16 Time of Evaluation: 17:00 Objective - Vital Signs/Intake and Output Vital Signs (last 24 hours): Temp Pulse Resp BP Pulse Ox 98.5 F 65 20 110/62 98 11/20/16 17:08 11/20/16 17:08 11/20/16 17:08 11/20/16 17:08 11/08/16 21:59 - Medications Medications: Current Medications Acetaminophen (Tylenol 325mg Tab) 650 mg PO Q4 PRN PRN Reason: Pain, moderate (4-7) Al Hydrox/Mg Hydrox/Simethicone (Maalox Plus 30 Ml) 30 ml PO Q4 PRN PRN Reason: Dyspepsia Bismuth Subsalicylate (Pepto-Bismol) 524 mg PO Q4 PRN PRN Reason: Diarrhea Clotrimazole (Lotrimin 1% Cream) 1 applic TOP BID [facility] Last Admin: 11/20/16 18:01 Dose: 1 applic Cyanocobalamin (Vitamin B12 1000 Mcg Tab) 1,000 mcg PO DAILY [facility] Last Admin: 11/20/16 08:24 Dose: 1,000 mcg Folic Acid (Folic Acid) 1 mg PO DAILY [facility] Last Admin: 11/20/16 08:24 Dose: 1 mg Lactobacillus Acidophilus (Bacid Acidophilus) 1 cap PO BID [facility] Last Admin: 11/20/16 16:26 Dose: 1 cap Lorazepam (Ativan) 0.5 mg PO HS PRN PRN Reason: Insomnia Stop: 11/22/16 23:20 Lorazepam (Ativan) 0.5 mg PO Q6 PRN PRN Reason: Anixety/Agitation Stop: 11/22/16 23:20 Magnesium Hydroxide (Milk Of Magnesia) 30 ml PO HS PRN PRN Reason: Constipation Metronidazole (Flagyl) 500 mg PO Q8 [facility] Last Admin: 11/20/16 16:25 Dose: 500 mg Nystatin (Nystop Topical Powder) 1 applic TOP DAILY [facility] Last Admin: 11/20/16 08:24 Dose: 1 pdr Quetiapine Fumarate (Seroquel) 25 mg PO HS [facility] Last Admin: 11/20/16 21:20 Dose: 25 mg Sertraline HCl (Zoloft) 50 mg PO DAILY [facility] Last Admin: 04/10/17 08:24 Dose: 50 mg Thiamine HCl (Vitamin B1 Tab) 100 mg PO DAILY [facility] Last Admin: 11/20/16 08:24 Dose: 100 mg - Labs Labs: 11/13/16 15:00 Assessment and Plan (1) Prostate cancer Status: Chronic (2) Enterocolitis Status: Acute (3) Dental caries Status: Chronic (4) Adjustment disorder Status: Chronic (5) Anemia Status: Chronic
[2016-11-21] MEDS: Lactobacillus Acidophilus 500 MU Cap PO SCH ×2 (08:09→16:21)
--- NOTE | 2016-11-21 12:14 | PCM.PYCHPN ---
Psychiatric Progress Note - Psychiatric Progress Note Patient seen today, length of contact: Chart reviewed, case discussed with team , patient evaluated, 35 min Patient Chief Complaint: "I'm okay" Problems Identified/Issues Discussed: Patient spends most of the day in bed, seeming depressed and disinterested in engaging in activities. Sometimes he does not recognize the typewriter assembly and parts inspector when she evaluates him daily. 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 He has depressed affect and seems hopeless at times. Tunnel Kiln Operator informed the patient that we will be increasing his medications due to continued depression. Medication Change: Yes (Increase Seroquel to 50 mg PO HS) Medical Record Reviewed: Yes Mental Status Examination - Cognitive Function Orientation: Person, Place, Situation, Time Memory: Intact Attention: WNL Concentration: WNL Association: WNL Fund of Knowledge: [facility] Decription of patient's judgement and insights: Insight fluctuates, currently limited/ judgment fair - Mood Mood: Depressed - Affect Affect: Constricted - Speech Speech: Soft - Formal Thought Process Formal Thought Process: No Impairment Psychotic Thoughts and Behaviors: Denies AH/VH - Suicidal Ideation Suicidal Ideation: No - Homicidal Ideation Homicidal Ideation: No Goal/Treatment Plan - Goal/Treatment Plan Need for Continued Stay: Remain at risks for inpatient hospitalization, Severe depression anxiety, Failed transitioning Progress Toward Problem(s) and Goals/Treatment Plan: Impression: 70 year old, Single, , Male, w/ history of prostate cancer and osteoporosis, referred to ED due to hoarding behaviors, recently evicted, likely now has major depressive disorder. Patient continues to be very depressed and requires continued inpatient treatment for safety and stabilization. Plan: -Continue Zoloft 50 mg PO Daily and Increase Seroquel to 50 mg PO HS -Individual, group and milieu tx -Head CT as per neuro recommendations Estimated Date of D/C: 11/24/16
[2016-11-21 15:44] LABS: RBC URINE 18 /hpf (0-3); URINE BACTERIA FEW (<OCC); URINE BILIRUBIN NEGATIVE (NEGATIVE); URINE BLOOD SMALL (NEGATIVE); URINE COLOR YELLOW (YELLOW); URINE GLUCOSE (UA) NEG (Normal); URINE KETONE NEGATIVE (NEGATIVE); URINE LEUKOCYTE ESTERASE LARGE Leu/uL (Negative); URINE PROTEIN NEGATIVE (NEGATIVE); URINE UROBILINOGEN 0.2-1.0 mg/dL (0.2-1.0); WBC URINE 21 /hpf (0-5)
--- NOTE | 2016-11-21 16:27 | CT ---
PROCEDURE: CT HEAD WITHOUT CONTRAST. HISTORY: confusion COMPARISON: 08/12/2016 TECHNIQUE: Axial computed tomography images were obtained through the head/brain without intravenous contrast. Radiation dose: Total exam DLP = 857.27 mGy-cm. This CT exam was performed using one or more of the following dose reduction techniques: Automated exposure control, adjustment of the mA and/or kV according to patient size, and/or use of iterative reconstruction technique. FINDINGS: HEMORRHAGE: No intracranial hemorrhage. BRAIN: Moderate diffuse age-appropriate cerebral atrophy. Mild periventricular chronic white matter ischemic change. Focal right frontal encephalomalacia unchanged from prior examination. No evidence of acute infarct. VENTRICLES: Unremarkable. No hydrocephalus. CALVARIUM: Unremarkable. PARANASAL SINUSES: Unremarkable as visualized. No significant inflammatory changes. MASTOID AIR CELLS: Unremarkable as visualized. No inflammatory changes. OTHER FINDINGS: None. IMPRESSION: No intracranial mass, hemorrhage or evidence of acute infarct. 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 Age related atrophy and chronic white matter ischemic change.
--- NOTE | 2016-11-21 23:29 | CP.PCM.PN ---
Subjective - Date & Time of Evaluation Date of Evaluation: 11/21/16 Time of Evaluation: 13:00 Objective - Vital Signs/Intake and Output Vital Signs (last 24 hours): Temp Pulse Resp BP Pulse Ox 98.2 F 56 L 18 93/64 L 98 11/21/16 05:58 11/21/16 05:58 11/21/16 05:58 11/21/16 05:58 11/08/16 21:59 - Medications Medications: Current Medications Acetaminophen (Tylenol 325mg Tab) 650 mg PO Q4 PRN PRN Reason: Pain, moderate (4-7) Al Hydrox/Mg Hydrox/Simethicone (Maalox Plus 30 Ml) 30 ml PO Q4 PRN PRN Reason: Dyspepsia Bismuth Subsalicylate (Pepto-Bismol) 524 mg PO Q4 PRN PRN Reason: Diarrhea Clotrimazole (Lotrimin 1% Cream) 1 applic TOP BID [facility] Last Admin: 11/21/16 16:21 Dose: 1 applic Cyanocobalamin (Vitamin B12 1000 Mcg Tab) 1,000 mcg PO DAILY [facility] Last Admin: 11/21/16 08:05 Dose: 1,000 mcg Folic Acid (Folic Acid) 1 mg PO DAILY [facility] Last Admin: 11/21/16 08:06 Dose: 1 mg Lactobacillus Acidophilus (Bacid Acidophilus) 1 cap PO BID [facility] Last Admin: 11/21/16 16:21 Dose: 1 cap Lorazepam (Ativan) 0.5 mg PO HS PRN PRN Reason: Insomnia Stop: 11/22/16 23:20 Lorazepam (Ativan) 0.5 mg PO Q6 PRN PRN Reason: Anixety/Agitation Stop: 11/22/16 23:20 Magnesium Hydroxide (Milk Of Magnesia) 30 ml PO HS PRN PRN Reason: Constipation Metronidazole (Flagyl) 500 mg PO Q8 [facility] Last Admin: 11/21/16 16:21 Dose: 500 mg Nystatin (Nystop Topical Powder) 1 applic TOP DAILY [facility] Last Admin: 11/21/16 08:07 Dose: 1 pdr Quetiapine Fumarate (Seroquel) 50 mg PO HS [facility] Last Admin: 11/21/16 21:12 Dose: 50 mg Sertraline HCl (Zoloft) 100 mg PO DAILY [facility] Thiamine HCl (Vitamin B1 Tab) 100 mg PO DAILY [facility] Last Admin: 11/21/16 08:05 Dose: 100 mg - Labs Labs: 11/13/16 15:00 Assessment and Plan (1) Prostate cancer Status: Chronic (2) Enterocolitis Status: Acute (3) Dental caries Status: Chronic (4) Adjustment disorder Status: Chronic (5) Anemia Status: Chronic
[2016-11-22 07:36] LABS: HEMATOCRIT 31.7 % (35.0-51.0); MEAN CELL VOLUME 89.7 fl (80.0-94.0); MEAN CORPUSCULAR HEMOGLOBIN 29.9 pg (27.0-31.0); MEAN CORPUSCULAR HGB CONC 33.4 g/dL (33.0-37.0); RED CELL DISTRIBUTION WIDTH 15.5 % (11.5-14.5); WHITE BLOOD COUNT 8.1 K/uL (4.8-10.8)
[2016-11-22 08:04] LABS: ALB/GLOB RATIO 0.9 (1.0-2.1); ALKALINE PHOSPHATASE 57 U/L (38-126); ALT/SGPT 10 U/L (21-72); AST/SGOT 24 U/L (17-59); BILIRUBIN,TOTAL 0.3 mg/dl (0.2-1.3); BLOOD UREA NITROGEN 25 mg/dl (9-20); CALCIUM 8.9 mg/dL (8.4-10.2); CARBON DIOXIDE 25 mmol/L (22-30); CHLORIDE 108 mmol/L (98-107); GFR AFRICAN-AMERICAN > 60; GLUCOSE,RANDOM 85 mg/dL (75-110); POTASSIUM 4.4 MMOL/L (3.6-5.0); SODIUM 144 mmol/l (132-148); TOTAL PROTEIN 6.6 G/DL (6.3-8.2)
--- NOTE | 2016-11-22 08:53 | PCM.PYCHPN ---
Psychiatric Progress Note - Psychiatric Progress Note Patient seen today, length of contact: Chart reviewed, case discussed with team , patient evaluated, 35 min Patient Chief Complaint: "I'm okay" Problems Identified/Issues Discussed: Patient is brighter this morning and more alert. 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 He had no acute complaints at this time. He continues to have periods during the day when he looks depressed and dispondent. No AH/VH/Paranoia Diagnostic Results: 11/21/16- Head CT- No intracranial mass, hemorrahage or evidence of acute infarct. 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 Age related atrophy and chronic white matter ischemic change. Medication Change: Yes (Increase Zoloft to 100 mg PO Daily) Medical Record Reviewed: Yes Mental Status Examination - Cognitive Function Orientation: Person, Place, Situation, Time Memory: Intact Attention: WNL Concentration: WNL Association: WNL Fund of Knowledge: [facility] Decription of patient's judgement and insights: Fair I/J - Mood Mood: Depressed - Affect Affect: Constricted - Speech Speech: Soft - Formal Thought Process Formal Thought Process: No Impairment Psychotic Thoughts and Behaviors: Denies AH/VH/paranoia - Suicidal Ideation Suicidal Ideation: No - Homicidal Ideation Homicidal Ideation: No Goal/Treatment Plan - Goal/Treatment Plan Need for Continued Stay: Remain at risks for inpatient hospitalization, Severe depression anxiety, Failed transitioning Progress Toward Problem(s) and Goals/Treatment Plan: Impression: 70 year old, Single, , Male, w/ history of prostate cancer and osteoporosis, referred to ED due to hoarding behaviors, recently evicted, likely now has major depressive disorder. Patient continues to be very depressed and requires continued inpatient treatment for safety and stabilization. Plan: -Increase Zoloft to 100 mg PO Daily and continue Seroquel 50 mg PO HS -Individual, group and milieu tx Estimated Date of D/C: 11/24/16
[2016-11-22] MEDS: Lactobacillus Acidophilus 500 MU Cap PO SCH ×2 (08:54→17:00)
--- NOTE | 2016-11-22 16:19 | CON ---
DATE: 11/22/2016 TIME OF DICTATION: Roughly around 3:30 p.m. BRIEF HISTORY: The patient is a 70-year-old white male who was admitted to the psychiatric department at [facility] for a change in behavior and mental status at home recently. The patient has a diagnostic history of prostate cancer and according to the patient was originally diagnosed in 1999 and treated in 2000 at [facility] with radiation therapy. He also received neoadjuvant and adjuvant ADT with Lupron, Depot. However, there is an additional history from the chart that says he was diagnosed at [facility] in 2002 and was originally started on Lupron for 1 year and when his PSA became stable, the medication was stopped. He had a rise in PSA in 2007 at which time he had radiation therapy and was then again okay until 2017. These 2 histories differ slightly. However, the patient is status post radiation therapy for treatment of prostate cancer. His PSA this admission done on 11/13/2016 showed a total PSA of 8.6 which is elevated, especially for post-radiation therapy which should be 0.5 or less. This indicates most likely radiation breakthrough prostate cancer. The patient currently voids with his usual normal stream. ALLERGIES: He has no known allergies to medication. SOCIAL HISTORY: He is currently a nonsmoker and no history of alcohol abuse. FAMILY HISTORY: He denies any family history of prostate cancer. PHYSICAL EXAMINATION: VITAL SIGNS: Today show a temperature of 97.1, pulse rate of 78, blood pressure of 107/62 and a respiration rate of 18. GENERAL: The patient is a well-developed, well-nourished white male. He is alert and seems to be oriented. HEENT: Grossly within normal limits. NECK: Supple. Thyroid not palpable. ABDOMEN: Soft, not distended or tender. No CVA tenderness. No suprapubic tenderness. GENITALIA: The patient is noncircumcised with a normal glans, meatus without any rashes or lesions visualized. Testes are down bilaterally, nontender, without masses and appeared to be normal sized. RECTAL: Normal rectal tone without fluctuance or masses. Prostate is average size, smooth, symmetrical, nontender without nodules or indurations with a palpable median sulcus. LABORATORY EVALUATION: On 11/22/2016 shows a CBC with a WBC count of 8.1, hemoglobin of 10.6, hematocrit of 31.7 and a platelet count of 260,000. Chem profile showed a sodium of 144, potassium 4.4, chloride of 108, CO2 of 25, BUN and creatinine of 25 and 0.8, respectively with a GFR of greater than 60. Random glucose was 85. Alk phosphatase was 57. AST was 24, ALT was 10. Total PSA was 8.6 and free PSA was 14% indicative of radiation breakthrough prostate cancer. TSH was 2.49. Urinalysis 11/21/2016, the color was yellow, clarity was slightly cloudy, pH is 6.0, specific gravity 1.026, protein, ketones nitrite and bilirubin were all negative. Urobilinogen was 0.2-1.0. There were large leukocyte esterase, 18 RBCs, 21 WBCs per high power field and few bacteria. This urinalysis may indicate a prostate infection or just a UTI. His RPR was nonreactive. DIAGNOSTIC IMPRESSION: 1. Prostate cancer. 2. Elevated PSA of 8.6 post-radiation therapy with a possible radiation breakthrough prostate cancer. 3. Urinary tract infection. PLAN: To send the urine for a urine culture and sensitivity and we can start the patient on Bactrim-DS 1 tab b.i.d. for 10 days. We will get a repeat PSA after treatment with his Bactrim-DS. The patient can be seen in office followup in about 10 days. If the patient indeed does have radiation breakthrough prostate cancer, he will have to be restarted on Lupron 4 month Depot ADT (androgen deprivation therapy). Mert Machuca MD cc: [phone] TT: 11/22/2016 16:18:32 Confirmation # [id number] Dictation # [id number] patricia ACOSTA
--- NOTE | 2016-11-22 17:48 | CP.PCM.PN ---
Subjective - Date & Time of Evaluation Date of Evaluation: 11/22/16 Time of Evaluation: 16:00 - Subjective Subjective: Mr. Bell was seen and examined today at bedside. He was in no acute distress, his mood was low and affect was flat. He denied headache, nausea, chest pain, visual changes, new weakness, new sensory changes or new difficulty with ambulation. He continued to complain of left lower extremity weakness similar to prior reports. I discussed the findings on the CT head with him and suggested that we further evaluate with an MRI of the brain. Objective - Vital Signs/Intake and Output Vital Signs (last 24 hours): Temp Pulse Resp BP Pulse Ox 98.1 F 65 20 97/54 L 98 11/22/16 16:11 11/22/16 16:11 11/22/16 16:11 11/22/16 16:11 11/08/16 21:59 - Medications Medications: Current Medications Acetaminophen (Tylenol 325mg Tab) 650 mg PO Q4 PRN PRN Reason: Pain, moderate (4-7) Al Hydrox/Mg Hydrox/Simethicone (Maalox Plus 30 Ml) 30 ml PO Q4 PRN PRN Reason: Dyspepsia Bismuth Subsalicylate (Pepto-Bismol) 524 mg PO Q4 PRN PRN Reason: Diarrhea Clotrimazole (Lotrimin 1% Cream) 1 applic TOP BID [facility] Last Admin: 11/22/16 17:01 Dose: 1 applic Cyanocobalamin (Vitamin B12 1000 Mcg Tab) 1,000 mcg PO DAILY [facility] Last Admin: 11/22/16 08:54 Dose: 1,000 mcg Folic Acid (Folic Acid) 1 mg PO DAILY [facility] Last Admin: 11/22/16 08:55 Dose: 1 mg Lactobacillus Acidophilus (Bacid Acidophilus) 1 cap PO BID [facility] Last Admin: 11/22/16 17:00 Dose: 1 cap Lorazepam (Ativan) 0.5 mg PO HS PRN PRN Reason: Insomnia Stop: 11/22/16 23:20 Lorazepam (Ativan) 0.5 mg PO Q6 PRN PRN Reason: Anixety/Agitation Stop: 11/22/16 23:20 Magnesium Hydroxide (Milk Of Magnesia) 30 ml PO HS PRN PRN Reason: Constipation Metronidazole (Flagyl) 500 mg PO Q8 [facility] Last Admin: 11/22/16 17:00 Dose: 500 mg Nystatin (Nystop Topical Powder) 1 applic TOP DAILY [facility] Last Admin: 11/22/16 08:56 Dose: Not Given Quetiapine Fumarate (Seroquel) 50 mg PO HS [facility] Last Admin: 11/21/16 21:12 Dose: 50 mg Sertraline HCl (Zoloft) 100 mg PO DAILY [facility] Last Admin: 11/22/16 08:54 Dose: 100 mg Thiamine HCl (Vitamin B1 Tab) 100 mg PO DAILY [facility] Last Admin: 11/22/16 08:55 Dose: 100 mg Trimethoprim/Sulfamethoxazole (Bactrim Ds Tab) 1 tab PO Q12 [facility] - Labs Labs: 11/22/16 07:05 11/22/16 07:05 - Constitutional Appears: Well, No Acute Distress, Unkempt, Cachectic - Head Exam Head Exam: ATRAUMATIC, NORMAL INSPECTION, NORMOCEPHALIC - Eye Exam Eye Exam: EOMI, Normal appearance, PERRL Pupil Exam: NORMAL ACCOMODATION, PERRL - ENT Exam ENT Exam: Mucous Membranes Moist, Normal Exam - Neck Exam Neck Exam: Full ROM, Normal Inspection. absent: Lymphadenopathy - Respiratory Exam Respiratory Exam: Clear to Ausculation Bilateral, NORMAL BREATHING PATTERN - Cardiovascular Exam Cardiovascular Exam: REGULAR RHYTHM, +S1, +S2. 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 However, it may be contributing to the left lower extremity weakness and personality changes. Plan: 1. MRI of the brain as well as MRA of the head/neck; 2. Lipid Panel, HbA1c; 3. Echocardiogram; 4. Aspirin 81 mg daily; 5. If LDL is > 100, start statin; 6. DVT Px; 7. PT/OT
[2016-11-22] MEDS: Tmp-Smz 800 mg-160 mg DS Tab PO SCH (21:15)
--- NOTE | 2016-11-22 22:25 | CP.PCM.PN ---
Subjective - Date & Time of Evaluation Date of Evaluation: 11/22/16 Time of Evaluation: 16:50 Objective - Vital Signs/Intake and Output Vital Signs (last 24 hours): Temp Pulse Resp BP Pulse Ox 98.1 F 65 20 97/54 L 98 11/22/16 16:11 11/22/16 16:11 11/22/16 16:11 11/22/16 16:11 11/08/16 21:59 - Medications Medications: Current Medications Acetaminophen (Tylenol 325mg Tab) 650 mg PO Q4 PRN PRN Reason: Pain, moderate (4-7) Al Hydrox/Mg Hydrox/Simethicone (Maalox Plus 30 Ml) 30 ml PO Q4 PRN PRN Reason: Dyspepsia Bismuth Subsalicylate (Pepto-Bismol) 524 mg PO Q4 PRN PRN Reason: Diarrhea Clotrimazole (Lotrimin 1% Cream) 1 applic TOP BID [facility] Last Admin: 11/22/16 17:01 Dose: 1 applic Cyanocobalamin (Vitamin B12 1000 Mcg Tab) 1,000 mcg PO DAILY [facility] Last Admin: 11/22/16 08:54 Dose: 1,000 mcg Folic Acid (Folic Acid) 1 mg PO DAILY [facility] Last Admin: 11/22/16 08:55 Dose: 1 mg Lactobacillus Acidophilus (Bacid Acidophilus) 1 cap PO BID [facility] Last Admin: 11/22/16 17:00 Dose: 1 cap Lorazepam (Ativan) 0.5 mg PO HS PRN PRN Reason: Insomnia Stop: 11/22/16 23:20 Lorazepam (Ativan) 0.5 mg PO Q6 PRN PRN Reason: Anixety/Agitation Stop: 11/22/16 23:20 Magnesium Hydroxide (Milk Of Magnesia) 30 ml PO HS PRN PRN Reason: Constipation Metronidazole (Flagyl) 500 mg PO Q8 [facility] Last Admin: 11/22/16 17:00 Dose: 500 mg Nystatin (Nystop Topical Powder) 1 applic TOP DAILY [facility] Last Admin: 11/22/16 08:56 Dose: Not Given Quetiapine Fumarate (Seroquel) 50 mg PO HS [facility] Last Admin: 11/22/16 21:15 Dose: 50 mg Sertraline HCl (Zoloft) 100 mg PO DAILY [facility] Last Admin: 11/22/16 08:54 Dose: 100 mg Thiamine HCl (Vitamin B1 Tab) 100 mg PO DAILY [facility] Last Admin: 11/22/16 08:55 Dose: 100 mg Trimethoprim/Sulfamethoxazole (Bactrim Ds Tab) 1 tab PO Q12 [facility] Last Admin: 11/22/16 21:15 Dose: 1 tab - Labs Labs: 11/22/16 07:05 11/22/16 07:05 Assessment and Plan (1) Prostate cancer Status: Chronic (2) Enterocolitis Status: Acute (3) Dental caries Status: Chronic (4) Adjustment disorder Status: Chronic (5) Anemia Status: Chronic
[2016-11-23] MEDS: Tmp-Smz 800 mg-160 mg DS Tab PO SCH ×2 (08:48→21:49)
[2016-11-23] MEDS: Lactobacillus Acidophilus 500 MU Cap PO SCH ×2 (08:48→18:03)
--- NOTE | 2016-11-23 09:34 | PCM.PYCHPN ---
Psychiatric Progress Note - Psychiatric Progress Note Patient seen today, length of contact: Chart reviewed, case discussed with team , patient evaluated Patient Chief Complaint: "I'm okay" Problems Identified/Issues Discussed: Patient's mood continues to improve. He is brighter, more alert and engaged with others. He has been eating and sleeping well. No AH/VH/Paranoia Diagnostic Results: 11/21/16- Head CT- No intracranial mass, hemorrahage or evidence of acute infarct. 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 Age related atrophy and chronic white matter ischemic change. Medication Change: No Medical Record Reviewed: Yes Mental Status Examination - Cognitive Function Orientation: Person, Place, Situation, Time Memory: Intact Attention: WNL Concentration: WNL Association: WNL Fund of Knowledge: [facility] Decription of patient's judgement and insights: Fair I/J - Mood Mood: Depressed - Affect Affect: Constricted - Speech Speech: Soft - Formal Thought Process Formal Thought Process: No Impairment Psychotic Thoughts and Behaviors: NO AH/VH/paranoia - Suicidal Ideation Suicidal Ideation: No - Homicidal Ideation Homicidal Ideation: No Goal/Treatment Plan - Goal/Treatment Plan Need for Continued Stay: Severe depression anxiety Progress Toward Problem(s) and Goals/Treatment Plan: Impression: 70 year old, Single, , Male, w/ history of prostate cancer and osteoporosis, referred to ED due to hoarding behaviors, recently evicted, likely now has major depressive disorder. Patient is improving clinically. Plan: -Continue Zoloft 100 mg PO Daily and continue Seroquel 50 mg PO HS -Individual, group and milieu tx Estimated Date of D/C: 11/27/16 - Smoking Cessation Smoking Cessation Initiated: No Reason for not providing: Not indicated
--- NOTE | 2016-11-24 09:44 | PCM.PYCHPN ---
Psychiatric Progress Note - Psychiatric Progress Note Patient seen today, length of contact: Chart reviewed, case discussed with team , patient evaluated Patient Chief Complaint: "I'm okay" Problems Identified/Issues Discussed: Patient was observed eating breakfast. Reports that he has been eating well. His mood continues to improve. He is brighter, more alert and engaged with others. He has been eating and sleeping well. No AH/VH/Paranoia Diagnostic Results: 11/21/16- Head CT- No intracranial mass, hemorrahage or evidence of acute infarct. 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 Age related atrophy and chronic white matter ischemic change. Medication Change: No Medical Record Reviewed: Yes Mental Status Examination - Cognitive Function Orientation: Person, Place, Situation, Time Memory: Intact Attention: WNL Concentration: WNL Association: WNL Fund of Knowledge: [facility] Decription of patient's judgement and insights: Fair I/J - Mood Mood: Depressed - Affect Affect: Constricted - Speech Speech: Soft - Formal Thought Process Formal Thought Process: No Impairment Psychotic Thoughts and Behaviors: NO AH/VH/paranoia - Suicidal Ideation Suicidal Ideation: No - Homicidal Ideation Homicidal Ideation: No Goal/Treatment Plan - Goal/Treatment Plan Need for Continued Stay: Severe depression anxiety Progress Toward Problem(s) and Goals/Treatment Plan: Impression: 70 year old, Single, , Male, w/ history of prostate cancer and osteoporosis, referred to ED due to hoarding behaviors, recently evicted, likely now has major depressive disorder. Patient is improving clinically, but needs continued hospitalization for treatment and safety. Plan: -Continue Zoloft 100 mg PO Daily and continue Seroquel 50 mg PO HS -Individual, group and milieu tx -MRI as per neurology recommendations Estimated Date of D/C: 11/29/16
[2016-11-24] MEDS: Lactobacillus Acidophilus 500 MU Cap PO SCH ×2 (10:03→17:43)
[2016-11-24] MEDS: Tmp-Smz 800 mg-160 mg DS Tab PO SCH ×2 (10:03→21:35)
--- NOTE | 2016-11-24 14:13 | PN ---
DATE: 11/24/2016 DATE: 11/24/2016, roughly at 1:15 p.m. BRIEF HISTORY: The patient is currently resting comfortably. He is currently voiding mike urine well without any complaints. No complaint of pain, no complaint of dysuria, gross hematuria, renal colic, or abdominal pain. PHYSICAL EXAMINATION: ABDOMEN: Today, his abdomen is soft, not distended or tender. No CVA tenderness and no suprapubic tenderness. LABORATORY DATA: On 11/22/2016 showed a WBC count of 8.1, hemoglobin of 10.6, and hematocrit of 31.7, with a platelet count of 260,000. Sodium was 144, potassium 4.4, chloride 108, CO2 25, BUN and creatinine 25 and 0.8 respectively with a GFR of greater than 60. Calcium is 8.9. This patient has most likely radiation breakthrough prostate cancer status post radiation therapy done at [facility]. His most recent PSA was 8.6 on 11/13/2016; however, this may have been while the patient had some urosepsis. The patient has been on Bactrim-DS for treatment of his urinary tract infection. PLAN: After discharge will be to repeat a total PSA to check to see if the value of 8.6 is a true value. And if it is, the patient will probably be restarted back on Lupron 4 month depot or any other type of androgen deprivation therapy for treatment of radiation breakthrough prostate cancer. The patient can be seen in my office for followup in about 2 weeks. Otherwise, he has to be referred to another urologist for treatment of his prostate cancer. Mert Machuca MD cc: [phone] TT: 11/24/2016 14:12:25 Confirmation # [id number] Dictation # [id number] DAVE
[2016-11-24] MEDS: Pantoprazole 40 mg EC Tab PO SCH (21:35)
[2016-11-25] MEDS: Pantoprazole 40 mg EC Tab PO SCH (08:51)
[2016-11-25] MEDS: Tmp-Smz 800 mg-160 mg DS Tab PO SCH ×2 (08:51→21:11)
[2016-11-25] MEDS: Lactobacillus Acidophilus 500 MU Cap PO SCH ×2 (08:55→17:38)
--- NOTE | 2016-11-25 10:46 | PCM.PYCHPN ---
Psychiatric Progress Note - Psychiatric Progress Note Patient seen today, length of contact: Chart reviewed, case discussed with team , patient evaluated Patient Chief Complaint: "I'm okay" Problems Identified/Issues Discussed: Patient was observed eating breakfast. He reports that is mood is "okay" today. He continues to spend most of the day in his room, in his bed, despite encouragement from staff to participate in group and activities. Reports that he has been eating well. No AH/VH/Paranoia Diagnostic Results: 11/21/16- Head CT- No intracranial mass, hemorrahage or evidence of acute infarct. 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 Age related atrophy and chronic white matter ischemic change. Medication Change: No Medical Record Reviewed: Yes Mental Status Examination - Cognitive Function Orientation: Person, Place, Situation, Time Memory: Intact Attention: WNL Concentration: WNL Association: WNL Fund of Knowledge: [facility] Decription of patient's judgement and insights: Fair I/J - Mood Mood: Depressed - Affect Affect: Constricted - Speech Speech: Soft - Formal Thought Process Formal Thought Process: No Impairment Psychotic Thoughts and Behaviors: Denies AH/VH/paranoia - Suicidal Ideation Suicidal Ideation: No - Homicidal Ideation Homicidal Ideation: No Goal/Treatment Plan - Goal/Treatment Plan Need for Continued Stay: Severe depression anxiety Progress Toward Problem(s) and Goals/Treatment Plan: Impression: 70 year old, Single, , Male, w/ history of prostate cancer and osteoporosis, referred to ED due to hoarding behaviors, recently evicted, likely now has major depressive disorder. Patient is improving clinically, but needs continued hospitalization for treatment and safety. Plan: -Continue Zoloft 100 mg PO Daily and continue Seroquel 50 mg PO HS -Individual, group and milieu tx -MRI as per neurology recommendations Estimated Date of D/C: 11/29/16
--- NOTE | 2016-11-25 13:27 | MRI ---
PROCEDURE: MRI BRAIN WITHOUT CONTRAST HISTORY: infarct COMPARISON: None. TECHNIQUE: Multiplanar, multisequence MR images of the brain were obtained without intravenous contrast enhancement. FINDINGS: HEMORRHAGE: The current study reveals a small elliptical shaped on focal area of cystic encephalomalacia in the right frontal cortical and subcortical white matter with the peripheral hemosiderin consistent with surrounding a old hemorrhagic byproducts. No evidence of acute intracranial hemorrhage. DWI: No acute or subacute infarcts are identified on diffusion-weighted sequence. BRAIN PARENCHYMA: There appears to be some very minimal chronic periventricular white matter ischemic changes. VENTRICLES: Moderate generalized volume loss. No evidence of obstructive hydrocephalus. CRANIUM: Unremarkable. ORBITS: Grossly unremarkable. PARANASAL SINUSES/MASTOIDS: Minor mucosal thickening seen within in the maxillary sinuses. Minimal mucosal thickening noted within a few ethmoid air cells. VASCULAR SYSTEM: Visualized major vascular flow voids at skull base are patent. OTHER FINDINGS: None. IMPRESSION: No acute intracranial hemorrhage or infarct. There is elliptical shaped area of cystic encephalomalacia right frontal region with surrounding hemosiderin. This could represent old hemorrhagic infarct. Suspect minimal chronic periventricular white matter ischemic changes. Moderate generalized volume loss.
--- NOTE | 2016-11-25 14:00 | MRI ---
MRA brain dated 11/25/2016. History: Infarct. 3D [id number] MR angiography of the intracranial circulation performed. Correlation made with concurrent MR a of the neck and MRI brain. Findings: The visualized distal internal carotid arteries including the petrous,, cavernous and supraclinoid segments are patent without evidence of occlusion or significant stenosis. The A1 at and M1 segments are also patent. The distal middle and anterior cerebral vasculature is relatively symmetric. . . Both the distal vertebral arteries are patent right-sided which appears slightly more dominant/larger in caliber than the left. The basilar artery is also patent. The posterior cerebral arteries are also patent as are the visualized distal branches. There is a small the localized 3 mm x 2.5 mm localized outpouching at the level of the at left MCA trifurcation which extends superiorly. This appears represent a tiny aneurysm. Followup MRA at interval could be performed to assess for any changes. Impression: No evidence of occlusion or significant stenosis. 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 Note that these findings were discussed with 3 Anmol Naranjo at approximately 1:55 p.m. with written down and read back verification
--- NOTE | 2016-11-25 14:05 | MRI ---
MRA neck dated 11/25/2016. History: Infarct. 2D and 3D [id number] MR angiography of the intracranial circulation performed. Correlation made with concurrent MRI and MRA brain. Findings: Visualized common carotid arteries, carotid bifurcations and internal carotid arteries are widely patent without evidence of occlusion or significant stenosis. The visualized vertebral arteries are also of widely patent of without occlusion nor significant stenosis so far as can be seen. Note that the transverse portions of the distal vertebral arteries of are not visualized due to flow related type artifact. Impression: No evidence of occlusion or significant stenosis. .
[2016-11-26] MEDS: Tmp-Smz 800 mg-160 mg DS Tab PO SCH ×2 (09:38→21:19)
[2016-11-26] MEDS: Pantoprazole 40 mg EC Tab PO SCH (09:39)
--- NOTE | 2016-11-26 11:29 | PCM.PYCHPN ---
Psychiatric Progress Note - Psychiatric Progress Note Patient seen today, length of contact: Chart reviewed, case discussed with team , patient evaluated Patient Chief Complaint: "I'm okay" Problems Identified/Issues Discussed: Patient was observed eating breakfast in the dining roper. He has been out of the bed and in the community more. He reports that his mood is improving. He continues to be evaluated by neurology for the an aneurysm. No AH/VH/Paranoia Diagnostic Results: 11/21/16- Head CT- No intracranial mass, hemorrahage or evidence of acute infarct. 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 Age related atrophy and chronic white matter ischemic change. 11/24/16- MRA brain-No evidence of occlusion or significant stenosis. 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 Note that these findings were discussed with 3 Anmol Nurse Jose A at approximately 1:55 pm with written down and read back verification. 11/24/16- MRI Brain w/ contrast- No acute intracranial hemorrhage or infarct. There is elliptical shaped area of cystic encephalomalacia right frontal region with surrounding hemosiderin. This could represent old hemorrhagic infarct. Suspect minimal chronic periventricular white matter ischemic changes. Moderate generalized volume loss Medication Change: No Medical Record Reviewed: Yes Mental Status Examination - Cognitive Function Orientation: Person, Place, Situation, Time Memory: Intact Attention: WNL Concentration: WNL Association: WNL Fund of Knowledge: [facility] Decription of patient's judgement and insights: Fair I/J - Mood Mood: Depressed - Affect Affect: Constricted - Speech Speech: Soft - Formal Thought Process Formal Thought Process: No Impairment Psychotic Thoughts and Behaviors: NO AH/VH/paranoia - Suicidal Ideation Suicidal Ideation: No - Homicidal Ideation Homicidal Ideation: No Goal/Treatment Plan - Goal/Treatment Plan Need for Continued Stay: Severe depression anxiety Progress Toward Problem(s) and Goals/Treatment Plan: Impression: 70 year old, Single, , Male, w/ history of prostate cancer and osteoporosis, referred to ED due to hoarding behaviors, recently evicted, likely now has major depressive disorder. Patient is improving clinically, but needs continued hospitalization for treatment and safety. Plan: -Continue Zoloft 100 mg PO Daily and continue Seroquel 50 mg PO HS -Individual, group and milieu tx -Neurology consult in progress -Urology consult appreciated Estimated Date of D/C: 11/29/16
[2016-11-26] MEDS ORDERED: Sucralfate 1 gm/10 ml Oral Susp UD PO PRN (19:55)
[2016-11-26] MEDS ORDERED: Trimethobenzamide 200 mg/2 mL Inj IM PRN (19:56)
--- NOTE | 2016-11-26 23:46 | CP.PCM.PN ---
Subjective - Date & Time of Evaluation Date of Evaluation: 11/26/16 Time of Evaluation: 10:35 Objective - Vital Signs/Intake and Output Vital Signs (last 24 hours): Temp Pulse Resp BP Pulse Ox 99 F 65 20 100/65 98 11/26/16 16:26 11/26/16 16:26 11/26/16 16:26 11/26/16 16:26 11/08/16 21:59 - Medications Medications: Current Medications Acetaminophen (Tylenol 325mg Tab) 650 mg PO Q4 PRN PRN Reason: Pain, moderate (4-7) Al Hydrox/Mg Hydrox/Simethicone (Maalox Plus 30 Ml) 30 ml PO Q4 PRN PRN Reason: Dyspepsia Bismuth Subsalicylate (Pepto-Bismol) 524 mg PO Q4 PRN PRN Reason: Diarrhea Clotrimazole (Lotrimin 1% Cream) 1 applic TOP BID [facility] Last Admin: 11/26/16 18:39 Dose: 1 applic Cyanocobalamin (Vitamin B12 1000 Mcg Tab) 1,000 mcg PO DAILY [facility] Last Admin: 11/26/16 09:40 Dose: 1,000 mcg Folic Acid (Folic Acid) 1 mg PO DAILY [facility] Last Admin: 11/26/16 09:39 Dose: 1 mg Lorazepam (Ativan) 0.5 mg PO HS PRN PRN Reason: Insomnia Stop: 12/07/16 22:47 Lorazepam (Ativan) 0.5 mg PO Q6 PRN PRN Reason: Anixety/Agitation Stop: 12/07/16 22:47 Magnesium Hydroxide (Milk Of Magnesia) 30 ml PO HS PRN PRN Reason: Constipation Pantoprazole Sodium (Protonix Ec Tab) 40 mg PO DAILY [facility] Last Admin: 11/26/16 09:39 Dose: 40 mg Quetiapine Fumarate (Seroquel) 50 mg PO HS [facility] Last Admin: 11/26/16 21:19 Dose: 50 mg Sertraline HCl (Zoloft) 100 mg PO DAILY [facility] Last Admin: 11/26/16 09:39 Dose: 100 mg Sucralfate (Carafate Oral Susp) 1 gm PO QID PRN PRN Reason: Indigestion / Heartburn Thiamine HCl (Vitamin B1 Tab) 100 mg PO DAILY [facility] Last Admin: 04/16/17 09:39 Dose: 100 mg Trimethobenzamide HCl (Tigan) 200 mg IM Q6 PRN PRN Reason: nausea and vomitting Trimethoprim/Sulfamethoxazole (Bactrim Ds Tab) 1 tab PO Q12 [facility] Last Admin: 11/26/16 21:19 Dose: 1 tab - Labs Labs: 11/22/16 07:05 11/22/16 07:05 Assessment and Plan (1) Prostate cancer Status: Chronic (2) Enterocolitis Status: Acute (3) Dental caries Status: Chronic (4) Adjustment disorder Status: Chronic (5) Anemia Status: Chronic
[2016-11-27] MEDS: Pantoprazole 40 mg EC Tab PO SCH (09:52)
[2016-11-27] MEDS: Tmp-Smz 800 mg-160 mg DS Tab PO SCH ×2 (09:52→21:03)
--- NOTE | 2016-11-27 12:09 | PCM.PYCHPN ---
Psychiatric Progress Note - Psychiatric Progress Note Patient seen today, length of contact: Chart reviewed, case discussed with team , patient evaluated Patient Chief Complaint: "I'm okay" Problems Identified/Issues Discussed: No significant events over the weekend. Patient is brighter and more conversive. His mood is improving. He continues to be evaluated by neurology for the an aneurysm. No AH/VH/Paranoia Diagnostic Results: 11/21/16- Head CT- No intracranial mass, hemorrahage or evidence of acute infarct. 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 Age related atrophy and chronic white matter ischemic change. 11/24/16- MRA brain-No evidence of occlusion or significant stenosis. 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 Note that these findings were discussed with 3 Anmol Naranjo at approximately 1:55 pm with written down and read back verification. 11/24/16- MRI Brain w/ contrast- No acute intracranial hemorrhage or infarct. There is elliptical shaped area of cystic encephalomalacia right frontal region with surrounding hemosiderin. This could represent old hemorrhagic infarct. Suspect minimal chronic periventricular white matter ischemic changes. Moderate generalized volume loss Medication Change: No Medical Record Reviewed: Yes Mental Status Examination - Cognitive Function Orientation: Person, Place, Situation, Time Memory: Intact Attention: WNL Concentration: WNL Association: WNL Fund of Knowledge: WN Decription of patient's judgement and insights: Fair I/J - Mood Mood: Depressed - Affect Affect: Constricted - Speech Speech: Soft - Formal Thought Process Formal Thought Process: No Impairment Psychotic Thoughts and Behaviors: NO AH/VH/paranoia - Suicidal Ideation Suicidal Ideation: No - Homicidal Ideation Homicidal Ideation: No Goal/Treatment Plan - Goal/Treatment Plan Need for Continued Stay: Severe depression anxiety Progress Toward Problem(s) and Goals/Treatment Plan: Impression: 70 year old, Single, , Male, w/ history of prostate cancer and osteoporosis, referred to ED due to hoarding behaviors, recently evicted, likely now has major depressive disorder. Patient is improving clinically, but needs continued hospitalization for treatment and safety. Plan: -Continue Zoloft 100 mg PO Daily and continue Seroquel 50 mg PO HS -Individual, group and milieu tx -Neurology consult in progress -Urology consult appreciated Estimated Date of D/C: 12/01/16
--- NOTE | 2016-11-27 19:17 | PN ---
DATE: 11/27/2016 The patient is currently awaiting placement and, if he is placed in the [facility], the patien t can be seen in followup in my office for followup of his elevated PSA of roughly around 8.6, free P SA of 14%. He is currently voiding mike urine well without complaints. PHYSICAL EXAMINATION: Soft, not distended or tender. No CVA tenderness and no suprapubic tenderness . His GFR remains greater than 60. DIAGNOSTIC IMPRESSION: BPH and elevated PSA of 8.6. PLAN: If he stays states in the [facility], he is to have a follow up office appointment in a bout 2 weeks for follow up of his elevated PSA. Mert Machuca MD cc: [id number] TT: 11/27/2016 19:16:54 Confirmation # [id number] Dictation # [id number] mn
[2016-11-28] MEDS: Tmp-Smz 800 mg-160 mg DS Tab PO SCH ×2 (09:43→21:18)
[2016-11-28] MEDS: Pantoprazole 40 mg EC Tab PO SCH (09:43)
--- NOTE | 2016-11-28 09:56 | PCM.PYCHPN ---
Psychiatric Progress Note - Psychiatric Progress Note Patient seen today, length of contact: Chart reviewed, case discussed with team , patient evaluated Patient Chief Complaint: "I'm okay" Problems Identified/Issues Discussed: No significant events overnight. Patient is brighter and engages more in the community. His mood is improving. He continues to be evaluated by neurology for an aneurysm and has requested to speak with the neurologist prior to agreeing to any additional neurological studies/tests. No AH/VH/Paranoia. Diagnostic Results: 11/21/16- Head CT- No intracranial mass, hemorrahage or evidence of acute infarct. 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 Age related atrophy and chronic white matter ischemic change. 11/24/16- MRA brain-No evidence of occlusion or significant stenosis. 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 Note that these findings were discussed with 3 Anmol Naranjo at approximately 1:55 pm with written down and read back verification. 11/24/16- MRI Brain w/ contrast- No acute intracranial hemorrhage or infarct. There is elliptical shaped area of cystic encephalomalacia right frontal region with surrounding hemosiderin. This could represent old hemorrhagic infarct. Suspect minimal chronic periventricular white matter ischemic changes. Moderate generalized volume loss Medication Change: No Medical Record Reviewed: Yes Mental Status Examination - Cognitive Function Orientation: Person, Place, Situation, Time Memory: Intact Attention: WNL Concentration: WNL Association: WNL Fund of Knowledge: WNL Decription of patient's judgement and insights: Fair I/J - Mood Mood: Depressed - Affect Affect: Constricted - Speech Speech: Soft - Formal Thought Process Formal Thought Process: No Impairment Psychotic Thoughts and Behaviors: NO AH/VH/paranoia - Suicidal Ideation Suicidal Ideation: No - Homicidal Ideation Homicidal Ideation: No Goal/Treatment Plan - Goal/Treatment Plan Need for Continued Stay: Severe depression anxiety Progress Toward Problem(s) and Goals/Treatment Plan: Impression: 70 year old, Single, , Male, w/ history of prostate cancer and osteoporosis, referred to ED due to hoarding behaviors, recently evicted, likely now has major depressive disorder. Patient is improving clinically, but needs continued hospitalization for treatment and safety. 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
[2016-11-28] MEDS: Lactobacillus Acidophilus 500 MU Cap PO SCH (21:27)
--- NOTE | 2016-11-29 02:10 | CP.PCM.PN ---
Subjective - Date & Time of Evaluation Date of Evaluation: 11/28/16 Time of Evaluation: 11:25 Objective - Vital Signs/Intake and Output Vital Signs (last 24 hours): Temp Pulse Resp BP Pulse Ox 96.8 F L 59 L 18 101/69 98 11/28/16 15:45 11/28/16 15:45 11/28/16 15:45 11/28/16 15:45 11/08/16 21:59 - Medications Medications: Current Medications Acetaminophen (Tylenol 325mg Tab) 650 mg PO Q4 PRN PRN Reason: Pain, moderate (4-7) Al Hydrox/Mg Hydrox/Simethicone (Maalox Plus 30 Ml) 30 ml PO Q4 PRN PRN Reason: Dyspepsia Bismuth Subsalicylate (Pepto-Bismol) 524 mg PO Q4 PRN PRN Reason: Diarrhea Clotrimazole (Lotrimin 1% Cream) [address] [facility] Last Admin: 11/28/16 18:06 Dose: 1 applic Cyanocobalamin (Vitamin B12 1000 Mcg Tab) 1,[address] [facility] Last Admin: 11/28/16 09:44 Dose: 1,000 mcg Folic Acid (Folic Acid) [address] [facility] Last Admin: 11/28/16 09:43 Dose: 1 mg Lactobacillus Acidophilus (Bacid Acidophilus) [address] [facility] Last Admin: 11/28/16 21:27 Dose: 1 cap Lorazepam (Ativan) 0.5 mg PO HS PRN PRN Reason: Insomnia Stop: 12/07/16 22:47 Lorazepam (Ativan) 0.5 mg PO Q6 PRN PRN Reason: Anixety/Agitation Stop: 12/07/16 22:47 Magnesium Hydroxide (Milk Of Magnesia) 30 ml PO HS PRN PRN Reason: Constipation Pantoprazole Sodium (Protonix Ec Tab) [address] [facility] Last Admin: 11/28/16 09:43 Dose: 40 mg Quetiapine Fumarate (Seroquel) [address] [facility] Last Admin: 11/28/16 21:18 Dose: 50 mg Sertraline HCl (Zoloft) [address] [facility] Last Admin: 11/28/16 09:44 Dose: 100 mg Sucralfate (Carafate Oral Susp) 1 gm PO QID PRN PRN Reason: Indigestion / Heartburn Thiamine HCl (Vitamin B1 Tab) 100 mg PO DAILY [facility] Last Admin: 11/28/16 09:43 Dose: 100 mg Trimethobenzamide HCl (Tigan) 200 mg IM Q6 PRN PRN Reason: nausea and vomitting - Labs Labs: 11/22/16 07:05 11/22/16 07:05 Assessment and Plan (1) Prostate cancer Status: Chronic (2) Enterocolitis Status: Acute (3) Dental caries Status: Chronic (4) Adjustment disorder Status: Chronic (5) Anemia Status: Chronic
--- NOTE | 2016-11-29 08:52 | PCM.PYCHPN ---
Psychiatric Progress Note - Psychiatric Progress Note Patient seen today, length of contact: Chart reviewed, case discussed with team , patient evaluated Patient Chief Complaint: "I'm okay" Problems Identified/Issues Discussed: Patient is engaging more with staff and in the community. His mood is improving. Neurology consult in progress. No AH/VH/Paranoia. Diagnostic Results: 11/21/16- Head CT- No intracranial mass, hemorrahage or evidence of acute infarct. 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 Age related atrophy and chronic white matter ischemic change. 11/24/16- MRA brain-No evidence of occlusion or significant stenosis. 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 Note that these findings were discussed with 3 Anmol Nurse Jose A at approximately 1:55 pm with written down and read back verification. 11/24/16- MRI Brain w/ contrast- No acute intracranial hemorrhage or infarct. There is elliptical shaped area of cystic encephalomalacia right frontal region with surrounding hemosiderin. This could represent old hemorrhagic infarct. Suspect minimal chronic periventricular white matter ischemic changes. Moderate generalized volume loss Medication Change: No Medical Record Reviewed: Yes Mental Status Examination - Cognitive Function Orientation: Person, Place, Situation, Time Memory: Intact Attention: WNL Concentration: WNL Association: WNL Fund of Knowledge: WN Decription of patient's judgement and insights: Fair I/J - Mood Mood: Depressed - Affect Affect: Broad - Speech Speech: Soft - Formal Thought Process Formal Thought Process: No Impairment Psychotic Thoughts and Behaviors: NO AH/VH/paranoia - Suicidal Ideation Suicidal Ideation: No - Homicidal Ideation Homicidal Ideation: No Goal/Treatment Plan - Goal/Treatment Plan Need for Continued Stay: Severe depression anxiety Progress Toward Problem(s) and Goals/Treatment Plan: Impression: 70 year old, Single, , Male, w/ history of prostate cancer and osteoporosis, referred to ED due to hoarding behaviors, recently evicted, likely now has major depressive disorder. Patient is improving clinically, but needs continued hospitalization for treatment and safety. Plan: -Continue Zoloft 100 mg PO Daily and continue Seroquel 50 mg PO HS -Individual, group and milieu tx -Neurology consult in progress -Urology consult appreciated -Start disposition planning, patient will likely need disposal plant operator placement Estimated Date of D/C: 12/01/16
[2016-11-29] MEDS: Lactobacillus Acidophilus 500 MU Cap PO SCH ×2 (08:56→16:13)
[2016-11-29] MEDS: Pantoprazole 40 mg EC Tab PO SCH (08:58)
[2016-11-30] MEDS: Pantoprazole 40 mg EC Tab PO SCH (08:46)
[2016-11-30] MEDS: Lactobacillus Acidophilus 500 MU Cap PO SCH ×2 (08:46→16:06)
--- NOTE | 2016-11-30 12:10 | PCM.PYCHPN ---
Psychiatric Progress Note - Psychiatric Progress Note Patient seen today, length of contact: Chart reviewed, case discussed with team , patient evaluated Patient Chief Complaint: "I'm okay" Problems Identified/Issues Discussed: No significant events. Patient is engaging more with staff and in the community. His mood is improving. Neurology consult in progress. No AH/VH/ Paranoia. Diagnostic Results: 11/21/16- Head CT- No intracranial mass, hemorrahage or evidence of acute infarct. 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 Age related atrophy and chronic white matter ischemic change. 11/24/16- MRA brain-No evidence of occlusion or significant stenosis. 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 Note that these findings were discussed with 3 Anmol Nurse Jose A at approximately 1:55 pm with written down and read back verification. 11/24/16- MRI Brain w/ contrast- No acute intracranial hemorrhage or infarct. There is elliptical shaped area of cystic encephalomalacia right frontal region with surrounding hemosiderin. This could represent old hemorrhagic infarct. Suspect minimal chronic periventricular white matter ischemic changes. Moderate generalized volume loss Medication Change: No Medical Record Reviewed: Yes Mental Status Examination - Cognitive Function Orientation: Person, Place, Situation, Time Memory: Intact Attention: WNL Concentration: WNL Association: WNL Fund of Knowledge: [facility] Decription of patient's judgement and insights: Fair I/J - Mood Mood: Depressed - Affect Affect: Broad - Speech Speech: Soft - Formal Thought Process Formal Thought Process: No Impairment Psychotic Thoughts and Behaviors: NO AH/VH/paranoia - Suicidal Ideation Suicidal Ideation: No - Homicidal Ideation Homicidal Ideation: No Goal/Treatment Plan - Goal/Treatment Plan Need for Continued Stay: Severe depression anxiety Progress Toward Problem(s) and Goals/Treatment Plan: Impression: 70 year old, Single, , Male, w/ history of prostate cancer and osteoporosis, referred to ED due to hoarding behaviors, recently evicted, likely now has major depressive disorder. Patient is improving clinically. Plan: -Continue Zoloft 100 mg PO Daily and continue Seroquel 50 mg PO HS -Individual, group and milieu tx -Neurology consult in progress -Urology consult appreciated -Start disposition planning, patient will likely need extermination inspector placement Estimated Date of D/C: 12/05/16
--- NOTE | 2016-11-30 17:51 | CP.PCM.PN ---
Subjective - Date & Time of Evaluation Date of Evaluation: 11/30/16 Time of Evaluation: 17:30 Objective - Vital Signs/Intake and Output Vital Signs (last 24 hours): Temp Pulse Resp BP Pulse Ox 97.6 F 56 L 18 100/64 98 11/30/16 15:52 11/30/16 15:52 11/30/16 15:52 11/30/16 15:52 11/08/16 21:59 - Medications Medications: Current Medications Acetaminophen (Tylenol 325mg Tab) 650 mg PO Q4 PRN PRN Reason: Pain, moderate (4-7) Al Hydrox/Mg Hydrox/Simethicone (Maalox Plus 30 Ml) 30 ml PO Q4 PRN PRN Reason: Dyspepsia Bismuth Subsalicylate (Pepto-Bismol) 524 mg PO Q4 PRN PRN Reason: Diarrhea Clotrimazole (Lotrimin 1% Cream) 1 applic TOP BID [facility] B[facility]S AT [facility] Last Admin: 11/30/16 16:06 Dose: 1 applic Cyanocobalamin (Vitamin B12 1000 Mcg Tab) 1,000 mcg PO DAILY [facility]S [facility] Last Admin: 11/30/16 08:46 Dose: 1,000 mcg Folic Acid (Folic Acid) 1 mg PO DAILY [facility] B[facility]S AT [facility] Last Admin: 11/30/16 08:46 Dose: 1 mg Lactobacillus Acidophilus (Bacid Acidophilus) 1 cap PO BID [facility] 234 B[facility]S AT [facility] Last Admin: 11/30/16 16:06 Dose: 1 cap Lorazepam (Ativan) 0.5 mg PO HS PRN PRN Reason: Insomnia Stop: 12/07/16 22:47 Lorazepam (Ativan) 0.5 mg PO Q6 PRN PRN Reason: Anixety/Agitation Stop: 12/07/16 22:47 Magnesium Hydroxide (Milk Of Magnesia) 30 ml PO HS PRN PRN Reason: Constipation Pantoprazole Sodium (Protonix Ec Tab) 40 mg PO DAILY [facility] 234 [facility]S [facility] Last Admin: 11/30/16 08:46 Dose: 40 mg Quetiapine Fumarate (Seroquel) 50 mg PO HS [facility] 234 BEDS AT [facility] Last Admin: 11/29/16 21:40 Dose: 50 mg Sertraline HCl (Zoloft) 100 mg PO DAILY [facility] 234 B[facility]S AT [facility] Last Admin: 11/30/16 08:46 Dose: 100 mg Sucralfate (Carafate Oral Susp) 1 gm PO QID PRN PRN Reason: Indigestion / Heartburn Thiamine HCl (Vitamin B1 Tab) 100 mg PO DAILY [facility] Last Admin: 11/30/16 08:46 Dose: 100 mg Trimethobenzamide HCl (Tigan) 200 mg IM Q6 PRN PRN Reason: nausea and vomitting - Labs Labs: 11/22/16 07:05 11/22/16 07:05 Assessment and Plan (1) Prostate cancer Status: Chronic (2) Enterocolitis Status: Acute (3) Dental caries Status: Chronic (4) Adjustment disorder Status: Chronic (5) Anemia Status: Chronic
[2016-12-01] MEDS: Pantoprazole 40 mg EC Tab PO SCH (08:54)
[2016-12-01] MEDS: Lactobacillus Acidophilus 500 MU Cap PO SCH ×2 (08:54→16:24)
--- NOTE | 2016-12-01 17:07 | PCM.PYCHPN ---
Psychiatric Progress Note - Psychiatric Progress Note Patient seen today, length of contact: Chart reviewed, case discussed with team , patient evaluated Patient Chief Complaint: "I'm okay" Problems Identified/Issues Discussed: No significant events overnight. Patient is engaging appropriately with staff and in the community. His mood is improving. Neurology consult in progress. No AH/VH/Paranoia. Diagnostic Results: 11/21/16- Head CT- No intracranial mass, hemorrahage or evidence of acute infarct. 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 Age related atrophy and chronic white matter ischemic change. 11/24/16- MRA brain-No evidence of occlusion or significant stenosis. 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 Note that these findings were discussed with 3 Anmol Nurse Jose A at approximately 1:55 pm with written down and read back verification. 11/24/16- MRI Brain w/ contrast- No acute intracranial hemorrhage or infarct. There is elliptical shaped area of cystic encephalomalacia right frontal region with surrounding hemosiderin. This could represent old hemorrhagic infarct. Suspect minimal chronic periventricular white matter ischemic changes. Moderate generalized volume loss Medication Change: No Medical Record Reviewed: Yes Mental Status Examination - Cognitive Function Orientation: Person, Place, Situation, Time Memory: Intact Attention: WNL Concentration: WNL Association: WNL Fund of Knowledge: [facility] Decription of patient's judgement and insights: Fair I/J - Mood Mood: Depressed - Affect Affect: Broad - Speech Speech: Soft - Formal Thought Process Formal Thought Process: No Impairment Psychotic Thoughts and Behaviors: NO AH/VH/paranoia - Suicidal Ideation Suicidal Ideation: No - Homicidal Ideation Homicidal Ideation: No Goal/Treatment Plan - Goal/Treatment Plan Need for Continued Stay: Severe depression anxiety Progress Toward Problem(s) and Goals/Treatment Plan: Impression: 70 year old, Single, , Male, w/ history of prostate cancer and osteoporosis, referred to ED due to hoarding behaviors, recently evicted, likely now has major depressive disorder. Patient is improving clinically. Plan: -Continue Zoloft 100 mg PO Daily and continue Seroquel 50 mg PO HS -Individual, group and milieu tx -Neurology consult in progress -Urology consult appreciated -Start disposition planning, patient will likely need surface water technician placement Estimated Date of D/C: 12/06/16
--- NOTE | 2016-12-01 23:02 | CP.PCM.PN ---
Subjective - Date & Time of Evaluation Date of Evaluation: 12/01/16 Time of Evaluation: 16:30 Objective - Vital Signs/Intake and Output Vital Signs (last 24 hours): Temp Pulse Resp BP Pulse Ox 98.2 F 61 19 97/64 L 98 12/01/16 15:55 12/01/16 15:55 12/01/16 15:55 12/01/16 15:55 11/08/16 21:59 - Medications Medications: Current Medications Acetaminophen (Tylenol 325mg Tab) 650 mg PO Q4 PRN PRN Reason: Pain, moderate (4-7) Al Hydrox/Mg Hydrox/Simethicone (Maalox Plus 30 Ml) 30 ml PO Q4 PRN PRN Reason: Dyspepsia Bismuth Subsalicylate (Pepto-Bismol) 524 mg PO Q4 PRN PRN Reason: Diarrhea Last Admin: 11/30/16 17:57 Dose: 524 mg Clotrimazole (Lotrimin 1% Cream) 1 applic TOP BID [facility] Last Admin: 12/01/16 16:24 Dose: 1 applic Cyanocobalamin (Vitamin B12 1000 Mcg Tab) 1,000 mcg PO DAILY [facility] Last Admin: 12/01/16 08:55 Dose: 1,000 mcg Folic Acid (Folic Acid) 1 mg PO DAILY [facility] Last Admin: 12/01/16 08:51 Dose: 1 mg Lactobacillus Acidophilus (Bacid Acidophilus) 1 cap PO BID [facility] Last Admin: 12/01/16 16:24 Dose: 1 cap Lorazepam (Ativan) 0.5 mg PO HS PRN PRN Reason: Insomnia Stop: 12/07/16 22:47 Lorazepam (Ativan) 0.5 mg PO Q6 PRN PRN Reason: Anixety/Agitation Stop: 12/07/16 22:47 Magnesium Hydroxide (Milk Of Magnesia) 30 ml PO HS PRN PRN Reason: Constipation Nystatin (Nystop Topical Powder) 1 applic TOP BID [facility] Last Admin: 12/01/16 16:24 Dose: 1 appl Pantoprazole Sodium (Protonix Ec Tab) 40 mg PO DAILY [facility] Last Admin: 12/01/16 08:54 Dose: 40 mg Quetiapine Fumarate (Seroquel) 50 mg PO HS [facility] Last Admin: 12/01/16 21:11 Dose: 50 mg Sertraline HCl (Zoloft) 100 mg PO DAILY [facility] Last Admin: 12/01/16 08:55 Dose: 100 mg Sucralfate (Carafate Oral Susp) 1 gm PO QID PRN PRN Reason: Indigestion / Heartburn Thiamine HCl (Vitamin B1 Tab) 100 mg PO DAILY [facility] Last Admin: 12/01/16 08:54 Dose: 100 mg Trimethobenzamide HCl (Tigan) 200 mg IM Q6 PRN PRN Reason: nausea and vomitting - Labs Labs: 11/22/16 07:05 11/22/16 07:05 Assessment and Plan (1) Prostate cancer Status: Chronic (2) Enterocolitis Status: Acute (3) Dental caries Status: Chronic (4) Adjustment disorder Status: Chronic (5) Anemia Status: Chronic
[2016-12-02] MEDS: Lactobacillus Acidophilus 500 MU Cap PO SCH ×2 (10:03→17:39)
[2016-12-02] MEDS: Pantoprazole 40 mg EC Tab PO SCH (10:04)
--- NOTE | 2016-12-02 10:52 | PCM.PYCHPN ---
Psychiatric Progress Note - Psychiatric Progress Note Patient seen today, length of contact: discussed with team Patient Chief Complaint: i feel ok Problems Identified/Issues Discussed: pt has no complaints of medication side effects. per report, pt is less isolative. he is somewhat guarded today. denies suicidal thoughts. Medication Change: No Medical Record Reviewed: Yes Mental Status Examination - Cognitive Function Orientation: Person, Place, Situation, Time Memory: Intact Attention: WNL Concentration: WNL Association: WNL Fund of Knowledge: [facility] Decription of patient's judgement and insights: fair - Mood Mood: Depressed - Affect Affect: Constricted - Speech Speech: Soft - Formal Thought Process Formal Thought Process: No Impairment Psychotic Thoughts and Behaviors: denies a/v hallucinations - Suicidal Ideation Suicidal Ideation: No - Homicidal Ideation Homicidal Ideation: No Goal/Treatment Plan - Goal/Treatment Plan Need for Continued Stay: Severe depression anxiety Progress Toward Problem(s) and Goals/Treatment Plan: major depression continue current treatment continue care per primary team Estimated Date of D/C: 12/06/16
--- NOTE | 2016-12-02 17:42 | CP.PCM.PN ---
Subjective - Date & Time of Evaluation Date of Evaluation: 12/02/16 Time of Evaluation: 08:15 Objective - Vital Signs/Intake and Output Vital Signs (last 24 hours): Temp Pulse Resp BP Pulse Ox 97.5 F L 66 19 92/59 L 98 12/02/16 15:49 12/02/16 15:49 12/02/16 15:49 12/02/16 15:49 11/08/16 21:59 - Medications Medications: Current Medications Acetaminophen (Tylenol 325mg Tab) 650 mg PO Q4 PRN PRN Reason: Pain, moderate (4-7) Al Hydrox/Mg Hydrox/Simethicone (Maalox Plus 30 Ml) 30 ml PO Q4 PRN PRN Reason: Dyspepsia Bismuth Subsalicylate (Pepto-Bismol) 524 mg PO Q4 PRN PRN Reason: Diarrhea Last Admin: 11/30/16 17:57 Dose: 524 mg Clotrimazole (Lotrimin 1% Cream) 1 applic TOP BID [facility] Last Admin: 12/02/16 17:20 Dose: 1 applic Cyanocobalamin (Vitamin B12 1000 Mcg Tab) 1,000 mcg PO DAILY [facility] Last Admin: 12/02/16 10:04 Dose: 1,000 mcg Folic Acid (Folic Acid) 1 mg PO DAILY [facility] Last Admin: 12/02/16 10:05 Dose: 1 mg Lactobacillus Acidophilus (Bacid Acidophilus) 1 cap PO BID [facility] Last Admin: 12/02/16 17:39 Dose: 1 cap Lorazepam (Ativan) 0.5 mg PO HS PRN PRN Reason: Insomnia Stop: 12/07/16 22:47 Lorazepam (Ativan) 0.5 mg PO Q6 PRN PRN Reason: Anixety/Agitation Stop: 12/07/16 22:47 Magnesium Hydroxide (Milk Of Magnesia) 30 ml PO HS PRN PRN Reason: Constipation Nystatin (Nystop Topical Powder) 1 applic TOP BID [facility] Last Admin: 12/02/16 17:21 Dose: 1 appl Pantoprazole Sodium (Protonix Ec Tab) 40 mg PO DAILY [facility] Last Admin: 12/02/16 10:04 Dose: 40 mg Quetiapine Fumarate (Seroquel) 50 mg PO HS [facility] Last Admin: 12/01/16 21:11 Dose: 50 mg Sertraline HCl (Zoloft) 100 mg PO DAILY [facility] Last Admin: 12/02/16 10:05 Dose: 100 mg Sucralfate (Carafate Oral Susp) 1 gm PO QID PRN PRN Reason: Indigestion / Heartburn Thiamine HCl (Vitamin B1 Tab) 100 mg PO DAILY [facility] Last Admin: 12/02/16 10:05 Dose: 100 mg Trimethobenzamide HCl (Tigan) 200 mg IM Q6 PRN PRN Reason: nausea and vomitting - Labs Labs: 11/22/16 07:05 11/22/16 07:05 Assessment and Plan (1) Prostate cancer Status: Chronic (2) Enterocolitis Status: Acute (3) Dental caries Status: Chronic (4) Adjustment disorder Status: Chronic (5) Anemia Status: Chronic
[2016-12-03] MEDS: Pantoprazole 40 mg EC Tab PO SCH (08:19)
--- NOTE | 2016-12-03 09:03 | CP.PCM.PN ---
Subjective - Date & Time of Evaluation Date of Evaluation: 12/03/16 Time of Evaluation: 09:05 Objective - Vital Signs/Intake and Output Vital Signs (last 24 hours): Temp Pulse Resp BP Pulse Ox 96.9 F L 60 19 104/64 98 12/03/16 05:54 12/03/16 05:54 12/03/16 05:54 12/03/16 05:54 11/08/16 21:59 - Medications Medications: Current Medications Acetaminophen (Tylenol 325mg Tab) 650 mg PO Q4 PRN PRN Reason: Pain, moderate (4-7) Al Hydrox/Mg Hydrox/Simethicone (Maalox Plus 30 Ml) 30 ml PO Q4 PRN PRN Reason: Dyspepsia Bismuth Subsalicylate (Pepto-Bismol) 524 mg PO Q4 PRN PRN Reason: Diarrhea Last Admin: 11/30/16 17:57 Dose: 524 mg Clotrimazole (Lotrimin 1% Cream) 1 applic TOP BID [facility] Last Admin: 12/03/16 08:19 Dose: 1 applic Cyanocobalamin (Vitamin B12 1000 Mcg Tab) 1,000 mcg PO DAILY [facility] Last Admin: 12/03/16 08:19 Dose: 1,000 mcg Folic Acid (Folic Acid) 1 mg PO DAILY [facility] Last Admin: 12/03/16 08:19 Dose: 1 mg Lactobacillus Acidophilus (Bacid Acidophilus) 1 cap PO BID [facility] Last Admin: 12/02/16 17:39 Dose: 1 cap Lorazepam (Ativan) 0.5 mg PO HS PRN PRN Reason: Insomnia Stop: 12/07/16 22:47 Lorazepam (Ativan) 0.5 mg PO Q6 PRN PRN Reason: Anixety/Agitation Stop: 12/07/16 22:47 Magnesium Hydroxide (Milk Of Magnesia) 30 ml PO HS PRN PRN Reason: Constipation Nystatin (Nystop Topical Powder) 1 applic TOP BID [facility] Last Admin: 12/03/16 08:18 Dose: 1 appl Pantoprazole Sodium (Protonix Ec Tab) 40 mg PO DAILY [facility] Last Admin: 12/03/16 08:19 Dose: 40 mg Quetiapine Fumarate (Seroquel) 50 mg PO HS [facility] Last Admin: 12/02/16 21:34 Dose: 50 mg Sertraline HCl (Zoloft) 100 mg PO DAILY [facility] Last Admin: 12/03/16 08:19 Dose: 100 mg Sucralfate (Carafate Oral Susp) 1 gm PO QID PRN PRN Reason: Indigestion / Heartburn Thiamine HCl (Vitamin B1 Tab) 100 mg PO DAILY [facility] Last Admin: 12/03/16 08:19 Dose: 100 mg Trimethobenzamide HCl (Tigan) 200 mg IM Q6 PRN PRN Reason: nausea and vomitting - Labs Labs: 11/22/16 07:05 11/22/16 07:05 Assessment and Plan (1) Prostate cancer Status: Chronic (2) Enterocolitis Status: Resolved (3) Dental caries Status: Chronic (4) Adjustment disorder Status: Acute (5) Anemia Status: Chronic (6) Ischemic stroke of frontal lobe Assessment & Plan: Aneurysm ASA Status: Chronic
--- NOTE | 2016-12-03 12:30 | PCM.PYCHPN ---
Psychiatric Progress Note - Psychiatric Progress Note Patient seen today, length of contact: discussed with team Patient Chief Complaint: i feel ok Problems Identified/Issues Discussed: pt has no complaints of medication side effects.. remains guarded. denies suicidal thoughts. Medication Change: No Medical Record Reviewed: Yes Mental Status Examination - Cognitive Function Orientation: Person, Place, Situation, Time Memory: Intact Attention: WNL Concentration: WNL Association: WNL Fund of Knowledge: WN Decription of patient's judgement and insights: fair - Mood Mood: Depressed - Affect Affect: Constricted - Speech Speech: Soft - Formal Thought Process Formal Thought Process: No Impairment - Suicidal Ideation Suicidal Ideation: No - Homicidal Ideation Homicidal Ideation: No Goal/Treatment Plan - Goal/Treatment Plan Need for Continued Stay: Severe depression anxiety Progress Toward Problem(s) and Goals/Treatment Plan: major depression continue current treatment continue care per primary team Estimated Date of D/C: 12/06/16
[2016-12-03] MEDS: Lactobacillus Acidophilus 500 MU Cap PO SCH ×2 (12:53→17:51)
--- NOTE | 2016-12-04 08:24 | PCM.PYCHPN ---
Psychiatric Progress Note - Psychiatric Progress Note Patient seen today, length of contact: Patient evaluated, case discussed with team, chart reviewed Patient Chief Complaint: "I'm okay" Problems Identified/Issues Discussed: No significant events over the weekend. Patient is engaging appropriately with staff and in the community. His mood is improving. No AH/VH/Paranoia. Diagnostic Results: 11/21/16- Head CT- No intracranial mass, hemorrahage or evidence of acute infarct. 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 Age related atrophy and chronic white matter ischemic change. 11/24/16- MRA brain-No evidence of occlusion or significant stenosis. 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 Note that these findings were discussed with 3 Anmol Nurse Jose A at approximately 1:55 pm with written down and read back verification. 11/24/16- MRI Brain w/ contrast- No acute intracranial hemorrhage or infarct. There is elliptical shaped area of cystic encephalomalacia right frontal region with surrounding hemosiderin. This could represent old hemorrhagic infarct. Suspect minimal chronic periventricular white matter ischemic changes. Moderate generalized volume loss Medication Change: No Medical Record Reviewed: Yes Mental Status Examination - Cognitive Function Orientation: Person, Place, Situation, Time Memory: Intact Attention: WNL Concentration: WNL Association: WNL Fund of Knowledge: [facility] Decription of patient's judgement and insights: Fair I/J - Mood Mood: Neutral - Affect Affect: Constricted - Speech Speech: Soft - Formal Thought Process Formal Thought Process: No Impairment Psychotic Thoughts and Behaviors: NO AH/VH - Suicidal Ideation Suicidal Ideation: No - Homicidal Ideation Homicidal Ideation: No Goal/Treatment Plan - Goal/Treatment Plan Need for Continued Stay: Severe depression anxiety Progress Toward Problem(s) and Goals/Treatment Plan: Impression: 70 year old, Single, , Male, w/ history of prostate cancer and osteoporosis, referred to ED due to hoarding behaviors, recently evicted, likely now has major depressive disorder. Patient is improving clinically. Plan: -Continue Zoloft 100 mg PO Daily and continue Seroquel 50 mg PO HS -Individual, group and milieu tx -Neurology consult in progress -Urology consult appreciated -Start disposition planning, patient will likely need fdc placement Estimated Date of D/C: 12/08/16
[2016-12-04] MEDS: Pantoprazole 40 mg EC Tab PO SCH (09:16)
[2016-12-04] MEDS: Lactobacillus Acidophilus 500 MU Cap PO SCH ×2 (09:16→16:48)
--- NOTE | 2016-12-04 16:37 | CP.PCM.PN ---
Subjective - Date & Time of Evaluation Date of Evaluation: 12/04/16 Time of Evaluation: 13:45 - Subjective Subjective: Mr. Bell was seen and examined today at bedside. He had no new complaints and there were no acute events overnight. He had some questions regarding the recent imaging findings. His questions were addressed and answered to his satisfaction. Objective - Vital Signs/Intake and Output Vital Signs (last 24 hours): Temp Pulse Resp BP Pulse Ox 97.7 F 58 L 19 103/64 98 12/04/16 15:47 12/04/16 15:47 12/04/16 15:47 12/04/16 15:47 11/08/16 21:59 - Medications Medications: Current Medications Acetaminophen (Tylenol 325mg Tab) 650 mg PO Q4 PRN PRN Reason: Pain, moderate (4-7) Al Hydrox/Mg Hydrox/Simethicone (Maalox Plus 30 Ml) 30 ml PO Q4 PRN PRN Reason: Dyspepsia Bismuth Subsalicylate (Pepto-Bismol) 524 mg PO Q4 PRN PRN Reason: Diarrhea Last Admin: 11/30/16 17:57 Dose: 524 mg Clotrimazole (Lotrimin 1% Cream) 1 applic TOP BID [facility] Last Admin: 12/04/16 09:00 Dose: 1 applic Cyanocobalamin (Vitamin B12 1000 Mcg Tab) 1,000 mcg PO DAILY [facility] Last Admin: 12/04/16 09:16 Dose: 1,000 mcg Folic Acid (Folic Acid) 1 mg PO DAILY [facility] Last Admin: 12/04/16 09:16 Dose: 1 mg Lactobacillus Acidophilus (Bacid Acidophilus) 1 cap PO BID [facility] Last Admin: 12/04/16 09:16 Dose: 1 cap Lorazepam (Ativan) 0.5 mg PO HS PRN PRN Reason: Insomnia Stop: 12/07/16 22:47 Lorazepam (Ativan) 0.5 mg PO Q6 PRN PRN Reason: Anixety/Agitation Stop: 12/07/16 22:47 Magnesium Hydroxide (Milk Of Magnesia) 30 ml PO HS PRN PRN Reason: Constipation Nystatin (Nystop Topical Powder) 1 applic TOP BID [facility] Last Admin: 12/04/16 09:17 Dose: 1 appl Pantoprazole Sodium (Protonix Ec Tab) 40 mg PO DAILY [facility] Last Admin: 12/04/16 09:16 Dose: 40 mg Quetiapine Fumarate (Seroquel) 50 mg PO HS [facility] Last Admin: 12/03/16 21:25 Dose: 50 mg Sertraline HCl (Zoloft) 100 mg PO DAILY [facility] Last Admin: 12/04/16 09:16 Dose: 100 mg Sucralfate (Carafate Oral Susp) 1 gm PO QID PRN PRN Reason: Indigestion / Heartburn Thiamine HCl (Vitamin B1 Tab) 100 mg PO DAILY [facility] Last Admin: 12/04/16 09:18 Dose: 100 mg Trimethobenzamide HCl (Tigan) 200 mg IM Q6 PRN PRN Reason: nausea and vomitting - Labs Labs: 11/22/16 07:05 11/22/16 07:05 - Constitutional Appears: Well - Head Exam Head Exam: ATRAUMATIC, NORMAL INSPECTION, NORMOCEPHALIC - Eye Exam Eye Exam: EOMI, Normal appearance, PERRL Pupil Exam: NORMAL ACCOMODATION, PERRL - ENT Exam ENT Exam: Mucous Membranes Moist, Normal Exam Additional comments: poor dentition - Neck Exam Neck Exam: Full ROM, Normal Inspection. absent: Lymphadenopathy - Respiratory Exam Respiratory Exam: Clear to Ausculation Bilateral, NORMAL BREATHING PATTERN - Cardiovascular Exam Cardiovascular Exam: REGULAR RHYTHM, +S1, +S2. absent: Murmur - GI/Abdominal Exam GI & Abdominal Exam: Soft, Normal Bowel Sounds. absent: Tenderness - Neurological Exam Neurological Exam: Alert, Awake, CN II-XII Intact, Normal Gait, Oriented x3 Neuro motor strength exam: Left Upper Extremity: 5, Right Upper Extremity: 5, Left Lower Extremity: 4, Right Lower Extremity: 5 - Psychiatric Exam Psychiatric exam: Normal Affect, Normal Mood - Skin Skin Exam: Dry, Intact, Normal Color, Warm Assessment and Plan (1) CVA (cerebral vascular accident) Assessment & Plan: Based on the MRI, the patient likely had a previous intracerebral hemorrhage. 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 This does not correspond to the previous area of encephalomalacia, but if the patient has had a previous ICH, then there is risk of him possibly having had a previous ruptured aneurysm. A CTA of the head is recommended for further characterization. Furthermore, the patient should be evaluated by outpatient neurosurgery to determine if he would be a good candidate for clipping or coiling of the aneurysm. A conventional diagnostic cerebral angiogram may be needed as an outpatient prior to more definitive diagnosis and treatment recommendations. Status: Chronic
[2016-12-04 17:10] LABS: BASO % 0.5 % (0.0-2.0); EOS # 0.2 K/uL (0.0-0.7); EOS % 2.7 % (0.0-4.0); HEMATOCRIT 32.1 % (35.0-51.0); LYMPH % 29.3 % (20.0-40.0); MEAN CELL VOLUME 88.8 fl (80.0-94.0); MEAN CORPUSCULAR HEMOGLOBIN 30.2 pg (27.0-31.0); MEAN PLATELET VOLUME 6.5 fl (7.2-11.7); MONO # 0.5 K/uL (0.0-0.8); MONO % 7.2 % (0.0-10.0); NEUT # 4.1 K/uL (1.8-7.0); NEUT % 60.3 % (50.0-75.0); RED CELL DISTRIBUTION WIDTH 15.2 % (11.5-14.5); WHITE BLOOD COUNT 6.8 K/uL (4.8-10.8)
[2016-12-04 17:18] LABS: BLOOD UREA NITROGEN 26 mg/dl (9-20); CALCIUM 9.3 mg/dL (8.4-10.2); CARBON DIOXIDE 27 mmol/L (22-30); CHLORIDE 105 mmol/L (98-107); GFR AFRICAN-AMERICAN > 60; GLUCOSE,RANDOM 106 mg/dL (75-110); POTASSIUM 4.7 MMOL/L (3.6-5.0); SODIUM 142 mmol/l (132-148)
--- NOTE | 2016-12-04 23:15 | CP.PCM.PN ---
Subjective - Date & Time of Evaluation Date of Evaluation: 12/04/16 Time of Evaluation: 16:45 Objective - Vital Signs/Intake and Output Vital Signs (last 24 hours): Temp Pulse Resp BP Pulse Ox 97.7 F 58 L 19 103/64 98 12/04/16 15:47 12/04/16 15:47 12/04/16 15:47 12/04/16 15:47 11/08/16 21:59 - Medications Medications: Current Medications Acetaminophen (Tylenol 325mg Tab) 650 mg PO Q4 PRN PRN Reason: Pain, moderate (4-7) Al Hydrox/Mg Hydrox/Simethicone (Maalox Plus 30 Ml) 30 ml PO Q4 PRN PRN Reason: Dyspepsia Bismuth Subsalicylate (Pepto-Bismol) 524 mg PO Q4 PRN PRN Reason: Diarrhea Last Admin: 11/30/16 17:57 Dose: 524 mg Clotrimazole (Lotrimin 1% Cream) 1 applic TOP BID [facility] Last Admin: 12/04/16 16:49 Dose: 1 applic Cyanocobalamin (Vitamin B12 1000 Mcg Tab) 1,000 mcg PO DAILY [facility] Last Admin: 12/04/16 09:16 Dose: 1,000 mcg Folic Acid (Folic Acid) 1 mg PO DAILY [facility] Last Admin: 12/04/16 09:16 Dose: 1 mg Lactobacillus Acidophilus (Bacid Acidophilus) 1 cap PO BID [facility] Last Admin: 12/04/16 16:48 Dose: 1 cap Lorazepam (Ativan) 0.5 mg PO HS PRN PRN Reason: Insomnia Stop: 12/07/16 22:47 Lorazepam (Ativan) 0.5 mg PO Q6 PRN PRN Reason: Anixety/Agitation Stop: 12/07/16 22:47 Magnesium Hydroxide (Milk Of Magnesia) 30 ml PO HS PRN PRN Reason: Constipation Nystatin (Nystop Topical Powder) 1 applic TOP BID [facility] Last Admin: 12/04/16 16:48 Dose: 1 appl Pantoprazole Sodium (Protonix Ec Tab) 40 mg PO DAILY [facility] Last Admin: 12/04/16 09:16 Dose: 40 mg Quetiapine Fumarate (Seroquel) 50 mg PO HS [facility] Last Admin: 12/04/16 21:24 Dose: 50 mg Sertraline HCl (Zoloft) 100 mg PO DAILY [facility] Last Admin: 12/04/16 09:16 Dose: 100 mg Sucralfate (Carafate Oral Susp) 1 gm PO QID PRN PRN Reason: Indigestion / Heartburn Thiamine HCl (Vitamin B1 Tab) 100 mg PO DAILY [facility] Last Admin: 12/04/16 09:18 Dose: 100 mg Trimethobenzamide HCl (Tigan) 200 mg IM Q6 PRN PRN Reason: nausea and vomitting - Labs Labs: 12/04/16 16:30 12/04/16 16:30 Assessment and Plan (1) Prostate cancer Status: Chronic (2) Enterocolitis Status: Resolved (3) Dental caries Status: Chronic (4) Adjustment disorder Status: Acute (5) Anemia Status: Chronic (6) Ischemic stroke of frontal lobe Status: Deleted
[2016-12-05] MEDS: Pantoprazole 40 mg EC Tab PO SCH (08:41)
[2016-12-05] MEDS: Lactobacillus Acidophilus 500 MU Cap PO SCH ×2 (08:45→17:22)
--- NOTE | 2016-12-05 09:41 | PCM.PYCHPN ---
Psychiatric Progress Note - Psychiatric Progress Note Patient seen today, length of contact: Patient evaluated, case discussed with team, chart reviewed Patient Chief Complaint: "I'm okay" Problems Identified/Issues Discussed: No significant events overnight. Patient continues to be followed by neurology (see consult note). Patient is engaging appropriately with staff and in the community. His mood is improving. No AH/VH/Paranoia. Diagnostic Results: 11/21/16- Head CT- No intracranial mass, hemorrahage or evidence of acute infarct. 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 Age related atrophy and chronic white matter ischemic change. 11/24/16- MRA brain-No evidence of occlusion or significant stenosis. 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 Note that these findings were discussed with 3 Anmol Naranjo at approximately 1:55 pm with written down and read back verification. 11/24/16- MRI Brain w/ contrast- No acute intracranial hemorrhage or infarct. There is elliptical shaped area of cystic encephalomalacia right frontal region with surrounding hemosiderin. This could represent old hemorrhagic infarct. Suspect minimal chronic periventricular white matter ischemic changes. Moderate generalized volume loss Medication Change: No Medical Record Reviewed: Yes Mental Status Examination - Cognitive Function Orientation: Person, Place, Situation, Time Memory: Intact Attention: WNL Concentration: WNL Association: WNL Fund of Knowledge: WN Decription of patient's judgement and insights: Fair I/J - Mood Mood: Neutral - Affect Affect: Constricted - Speech Speech: Soft - Formal Thought Process Formal Thought Process: No Impairment Psychotic Thoughts and Behaviors: NO AH/VH/paranoia - Suicidal Ideation Suicidal Ideation: No - Homicidal Ideation Homicidal Ideation: No Goal/Treatment Plan - Goal/Treatment Plan Need for Continued Stay: Severe depression anxiety, Severe functional impairment Progress Toward Problem(s) and Goals/Treatment Plan: Impression: 70 year old, Single, , Male, w/ history of prostate cancer and osteoporosis, referred to ED due to hoarding behaviors, recently evicted, likely now has major depressive disorder. Patient is improving clinically. Plan: -Continue Zoloft 100 mg PO Daily and continue Seroquel 50 mg PO HS -Individual, group and milieu tx -Neurology consult in progress -Urology consult appreciated -Start disposition planning, patient will likely need jail placement; awaiting evaluated by [facility]
--- NOTE | 2016-12-05 10:25 | CP.PCM.PN ---
Subjective - Date & Time of Evaluation Date of Evaluation: 12/05/16 Time of Evaluation: 10:00 Objective - Vital Signs/Intake and Output Vital Signs (last 24 hours): Temp Pulse Resp BP Pulse Ox 97.7 F 58 L 19 103/64 98 12/04/16 15:47 12/04/16 15:47 12/04/16 15:47 12/04/16 15:47 11/08/16 21:59 - Medications Medications: Current Medications Acetaminophen (Tylenol 325mg Tab) 650 mg PO Q4 PRN PRN Reason: Pain, moderate (4-7) Al Hydrox/Mg Hydrox/Simethicone (Maalox Plus 30 Ml) 30 ml PO Q4 PRN PRN Reason: Dyspepsia Bismuth Subsalicylate (Pepto-Bismol) 524 mg PO Q4 PRN PRN Reason: Diarrhea Last Admin: 11/30/16 17:57 Dose: 524 mg Clotrimazole (Lotrimin 1% Cream) 1 applic TOP BID [facility] Last Admin: 12/05/16 08:41 Dose: 1 applic Cyanocobalamin (Vitamin B12 1000 Mcg Tab) 1,000 mcg PO DAILY [facility] Last Admin: 12/05/16 08:41 Dose: 1,000 mcg Folic Acid (Folic Acid) 1 mg PO DAILY [facility] Last Admin: 12/05/16 08:41 Dose: 1 mg Lactobacillus Acidophilus (Bacid Acidophilus) 1 cap PO BID [facility] Last Admin: 12/05/16 08:45 Dose: 1 cap Lorazepam (Ativan) 0.5 mg PO HS PRN PRN Reason: Insomnia Stop: 12/07/16 22:47 Lorazepam (Ativan) 0.5 mg PO Q6 PRN PRN Reason: Anixety/Agitation Stop: 12/07/16 22:47 Magnesium Hydroxide (Milk Of Magnesia) 30 ml PO HS PRN PRN Reason: Constipation Nystatin (Nystop Topical Powder) 1 applic TOP BID [facility] Last Admin: 12/05/16 08:41 Dose: 1 appl Pantoprazole Sodium (Protonix Ec Tab) 40 mg PO DAILY [facility] Last Admin: 12/05/16 08:41 Dose: 40 mg Quetiapine Fumarate (Seroquel) 50 mg PO HS [facility] Last Admin: 12/04/16 21:24 Dose: 50 mg Sertraline HCl (Zoloft) 100 mg PO DAILY [facility] Last Admin: 12/05/16 08:42 Dose: 100 mg Sucralfate (Carafate Oral Susp) 1 gm PO QID PRN PRN Reason: Indigestion / Heartburn Thiamine HCl (Vitamin B1 Tab) 100 mg PO DAILY [facility] Last Admin: 12/05/16 08:42 Dose: 100 mg Trimethobenzamide HCl (Tigan) 200 mg IM Q6 PRN PRN Reason: nausea and vomitting - Labs Labs: 12/04/16 16:30 12/04/16 16:30 Assessment and Plan (1) Prostate cancer Status: Chronic (2) Adjustment disorder Status: Acute (3) Enterocolitis Status: Resolved (4) Dental caries Status: Chronic (5) Anemia Status: Chronic (6) Ischemic stroke of frontal lobe Status: Deleted
[2016-12-05] MEDS ORDERED: Sodium Chloride 0.9% 0 ML IV ONE ×2 (16:03→18:15)
[2016-12-05] MEDS ORDERED: Iodixanol 320 MG/ML 100 ML BOTTLE IV ONE ×2 (16:03→18:14)
[2016-12-06] MEDS: Lactobacillus Acidophilus 500 MU Cap PO SCH ×2 (08:56→16:15)
[2016-12-06] MEDS: Pantoprazole 40 mg EC Tab PO SCH (08:57)
--- NOTE | 2016-12-06 10:38 | PCM.PYCHPN ---
Psychiatric Progress Note - Psychiatric Progress Note Patient seen today, length of contact: Patient evaluated, case discussed with team, chart reviewed Patient Chief Complaint: "I'm fine" Problems Identified/Issues Discussed: No significant events overnight. Patient is engaging appropriately with staff and in the community. His mood is improving. No AH/VH/Paranoia. Diagnostic Results: 11/21/16- Head CT- No intracranial mass, hemorrahage or evidence of acute infarct. 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 Age related atrophy and chronic white matter ischemic change. 11/24/16- MRA brain-No evidence of occlusion or significant stenosis. 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 Note that these findings were discussed with 3 [place] Nurse Jose A at approximately 1:55 pm with written down and read back verification. 11/24/16- MRI Brain w/ contrast- No acute intracranial hemorrhage or infarct. There is elliptical shaped area of cystic encephalomalacia right frontal region with surrounding hemosiderin. This could represent old hemorrhagic infarct. Suspect minimal chronic periventricular white matter ischemic changes. Moderate generalized volume loss Medication Change: No Medical Record Reviewed: Yes Mental Status Examination - Cognitive Function Orientation: Person, Place, Situation, Time Memory: Intact Attention: WNL Concentration: WNL Association: WNL Fund of Knowledge: [facility] Decription of patient's judgement and insights: Fair I/J - Mood Mood: Neutral - Affect Affect: Constricted - Speech Speech: Soft - Formal Thought Process Formal Thought Process: No Impairment Psychotic Thoughts and Behaviors: NO AH/VH/paranoia - Suicidal Ideation Suicidal Ideation: No - Homicidal Ideation Homicidal Ideation: No Goal/Treatment Plan - Goal/Treatment Plan Need for Continued Stay: Severe depression anxiety, Severe functional impairment Progress Toward Problem(s) and Goals/Treatment Plan: Impression: 70 year old, Single, , Male, w/ history of prostate cancer and osteoporosis, referred to ED due to hoarding behaviors, recently evicted, likely has major depressive disorder, now improving. Plan: -Continue Zoloft 100 mg PO Daily and continue Seroquel 50 mg PO HS -Individual, group and milieu tx -Neurology consult in progress -Urology consult appreciated -Disposition planning in progress, patient will likely need watermelon inspector placement ; awaiting evaluation by [facility] Estimated Date of D/C: 12/15/16
--- NOTE | 2016-12-06 10:50 | CP.PCM.PN ---
Subjective - Date & Time of Evaluation Date of Evaluation: 12/06/16 Time of Evaluation: 10:15 Objective - Vital Signs/Intake and Output Vital Signs (last 24 hours): Temp Pulse Resp BP Pulse Ox 98.1 F 57 L 18 103/63 98 12/06/16 05:54 12/06/16 05:54 12/06/16 05:54 12/06/16 05:54 11/08/16 21:59 - Medications Medications: Current Medications Acetaminophen (Tylenol 325mg Tab) 650 mg PO Q4 PRN PRN Reason: Pain, moderate (4-7) Al Hydrox/Mg Hydrox/Simethicone (Maalox Plus 30 Ml) 30 ml PO Q4 PRN PRN Reason: Dyspepsia Bismuth Subsalicylate (Pepto-Bismol) 524 mg PO Q4 PRN PRN Reason: Diarrhea Last Admin: 11/30/16 17:57 Dose: 524 mg Clotrimazole (Lotrimin 1% Cream) 1 applic TOP BID [facility] Last Admin: 12/06/16 08:56 Dose: 1 applic Cyanocobalamin (Vitamin B12 1000 Mcg Tab) 1,000 mcg PO DAILY [facility] Last Admin: 12/06/16 08:58 Dose: 1,000 mcg Folic Acid (Folic Acid) 1 mg PO DAILY [facility] Last Admin: 12/06/16 08:56 Dose: 1 mg Lactobacillus Acidophilus (Bacid Acidophilus) 1 cap PO BID [facility] Last Admin: 12/06/16 08:56 Dose: 1 cap Lorazepam (Ativan) 0.5 mg PO HS PRN PRN Reason: Insomnia Stop: 12/07/16 22:47 Lorazepam (Ativan) 0.5 mg PO Q6 PRN PRN Reason: Anixety/Agitation Stop: 12/07/16 22:47 Magnesium Hydroxide (Milk Of Magnesia) 30 ml PO HS PRN PRN Reason: Constipation Nystatin (Nystop Topical Powder) 1 applic TOP BID [facility] Last Admin: 12/06/16 08:57 Dose: 1 appl Pantoprazole Sodium (Protonix Ec Tab) 40 mg PO DAILY [facility] Last Admin: 12/06/16 08:57 Dose: 40 mg Quetiapine Fumarate (Seroquel) 50 mg PO HS [facility] Last Admin: 12/05/16 21:11 Dose: 50 mg Sertraline HCl (Zoloft) 100 mg PO DAILY [facility] Last Admin: 12/06/16 08:58 Dose: 100 mg Sucralfate (Carafate Oral Susp) 1 gm PO QID PRN PRN Reason: Indigestion / Heartburn Thiamine HCl (Vitamin B1 Tab) 100 mg PO DAILY [facility] Last Admin: 12/06/16 08:58 Dose: 100 mg Trimethobenzamide HCl (Tigan) 200 mg IM Q6 PRN PRN Reason: nausea and vomitting - Labs Labs: 12/04/16 16:30 12/04/16 16:30 Assessment and Plan (1) Prostate cancer Status: Chronic (2) Adjustment disorder Status: Acute (3) Enterocolitis Status: Resolved (4) Dental caries Status: Chronic (5) Anemia Status: Chronic (6) Ischemic stroke of frontal lobe Status: Deleted
[2016-12-07] MEDS: Pantoprazole 40 mg EC Tab PO SCH (08:31)
[2016-12-07] MEDS: Lactobacillus Acidophilus 500 MU Cap PO SCH ×2 (08:33→16:12)
--- NOTE | 2016-12-07 08:53 | PCM.PYCHPN ---
Psychiatric Progress Note - Psychiatric Progress Note Patient seen today, length of contact: Patient evaluated, case discussed with team, chart reviewed Patient Chief Complaint: "I'm fine" Problems Identified/Issues Discussed: No significant events overnight. Patient was disinterested in talking with the real estate underwriter this morning. His mood is stable. No AH/VH/Paranoia. Diagnostic Results: 11/21/16- Head CT- No intracranial mass, hemorrahage or evidence of acute infarct. 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 Age related atrophy and chronic white matter ischemic change. 11/24/16- MRA brain-No evidence of occlusion or significant stenosis. 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 Note that these findings were discussed with 3 [place] Nurse Jose A at approximately 1:55 pm with written down and read back verification. 11/24/16- MRI Brain w/ contrast- No acute intracranial hemorrhage or infarct. There is elliptical shaped area of cystic encephalomalacia right frontal region with surrounding hemosiderin. This could represent old hemorrhagic infarct. Suspect minimal chronic periventricular white matter ischemic changes. Moderate generalized volume loss Medication Change: No Medical Record Reviewed: Yes Mental Status Examination - Cognitive Function Orientation: Person, Place, Situation, Time Memory: Intact Attention: WNL Concentration: WNL Association: WNL Fund of Knowledge: [facility] Decription of patient's judgement and insights: Fair I/J - Mood Mood: Neutral - Affect Affect: Constricted - Speech Speech: Soft - Formal Thought Process Formal Thought Process: No Impairment Psychotic Thoughts and Behaviors: NO AH/VH/paranoia - Suicidal Ideation Suicidal Ideation: No - Homicidal Ideation Homicidal Ideation: No Goal/Treatment Plan - Goal/Treatment Plan Need for Continued Stay: Severe depression anxiety, Severe functional impairment Progress Toward Problem(s) and Goals/Treatment Plan: Impression: 70 year old, Single, , Male, w/ history of prostate cancer and osteoporosis, referred to ED due to hoarding behaviors, recently evicted, likely has major depressive disorder, now improving. Plan: -Continue Zoloft 100 mg PO Daily and continue Seroquel 50 mg PO HS -Individual, group and milieu tx -Neurology consult appreciated -Urology consult appreciated -Disposition planning in progress, patient will likely need prison placement ; awaiting evaluation by [facility] Estimated Date of D/C: 12/15/16
--- NOTE | 2016-12-07 23:38 | CP.PCM.PN ---
Objective - Vital Signs/Intake and Output Vital Signs (last 24 hours): Temp Pulse Resp BP Pulse Ox 97.1 F L 52 L 20 94/61 L 98 12/07/16 15:32 12/07/16 15:32 12/07/16 15:32 12/07/16 15:32 11/08/16 21:59 - Medications Medications: Current Medications Acetaminophen (Tylenol 325mg Tab) 650 mg PO Q4 PRN PRN Reason: Pain, moderate (4-7) Al Hydrox/Mg Hydrox/Simethicone (Maalox Plus 30 Ml) 30 ml PO Q4 PRN PRN Reason: Dyspepsia Bismuth Subsalicylate (Pepto-Bismol) 524 mg PO Q4 PRN PRN Reason: Diarrhea Last Admin: 11/30/16 17:57 Dose: 524 mg Clotrimazole (Lotrimin 1% Cream) 1 applic TOP BID [facility] Last Admin: 12/07/16 16:12 Dose: 1 applic Cyanocobalamin (Vitamin B12 1000 Mcg Tab) 1,000 mcg PO DAILY [facility] Last Admin: 12/07/16 08:30 Dose: 1,000 mcg Folic Acid (Folic Acid) 1 mg PO DAILY [facility] Last Admin: 12/07/16 08:30 Dose: 1 mg Lactobacillus Acidophilus (Bacid Acidophilus) 1 cap PO BID [facility] Last Admin: 12/07/16 16:12 Dose: 1 cap Magnesium Hydroxide (Milk Of Magnesia) 30 ml PO HS PRN PRN Reason: Constipation Nystatin (Nystop Topical Powder) 1 applic TOP BID [facility] Last Admin: 12/07/16 16:12 Dose: 1 appl Pantoprazole Sodium (Protonix Ec Tab) 40 mg PO DAILY [facility] Last Admin: 12/07/16 08:31 Dose: 40 mg Quetiapine Fumarate (Seroquel) 50 mg PO HS [facility] Last Admin: 12/07/16 21:28 Dose: 50 mg Sertraline HCl (Zoloft) 100 mg PO DAILY [facility] Last Admin: 12/07/16 08:30 Dose: 100 mg Sucralfate (Carafate Oral Susp) 1 gm PO QID PRN PRN Reason: Indigestion / Heartburn Thiamine HCl (Vitamin B1 Tab) 100 mg PO DAILY [facility] Last Admin: 12/07/16 08:30 Dose: 100 mg Trimethobenzamide HCl (Tigan) 200 mg IM Q6 PRN PRN Reason: nausea and vomitting - Labs Labs: 12/04/16 16:30 12/04/16 16:30 Assessment and Plan (1) Prostate cancer Status: Chronic (2) Adjustment disorder Status: Acute (3) Enterocolitis Status: Resolved (4) Dental caries Status: Chronic (5) Anemia Status: Chronic (6) Ischemic stroke of frontal lobe Status: Deleted
--- NOTE | 2016-12-08 08:43 | PCM.PYCHPN ---
Psychiatric Progress Note - Psychiatric Progress Note Patient seen today, length of contact: Patient evaluated, case discussed with team, chart reviewed Patient Chief Complaint: "I'm fine" Problems Identified/Issues Discussed: No significant events overnight. His mood is stable. Patient encouraged to leave his room more and engage in groups. He seems disinterested in engaging in groups and peers at times. No AH/VH/Paranoia. Diagnostic Results: 11/21/16- Head CT- No intracranial mass, hemorrahage or evidence of acute infarct. 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 Age related atrophy and chronic white matter ischemic change. 11/24/16- MRA brain-No evidence of occlusion or significant stenosis. 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 Note that these findings were discussed with 3 Anmol Naranjo at approximately 1:55 pm with written down and read back verification. 11/24/16- MRI Brain w/ contrast- No acute intracranial hemorrhage or infarct. There is elliptical shaped area of cystic encephalomalacia right frontal region with surrounding hemosiderin. This could represent old hemorrhagic infarct. Suspect minimal chronic periventricular white matter ischemic changes. Moderate generalized volume loss Medication Change: No Medical Record Reviewed: Yes Mental Status Examination - Cognitive Function Orientation: Person, Place, Situation, Time Memory: Intact Attention: WNL Concentration: WNL Association: WNL Fund of Knowledge: WN Decription of patient's judgement and insights: Fair I/J - Mood Mood: Neutral - Affect Affect: Constricted - Speech Speech: Soft - Formal Thought Process Formal Thought Process: No Impairment Psychotic Thoughts and Behaviors: NO AH/VH/paranoia - Suicidal Ideation Suicidal Ideation: No - Homicidal Ideation Homicidal Ideation: No Goal/Treatment Plan - Goal/Treatment Plan Need for Continued Stay: Severe depression anxiety, Severe functional impairment Progress Toward Problem(s) and Goals/Treatment Plan: Impression: 70 year old, Single, , Male, w/ history of prostate cancer and osteoporosis, referred to ED due to hoarding behaviors, recently evicted, likely has major depressive disorder, now improving. Plan: -Continue Zoloft 100 mg PO Daily and continue Seroquel 50 mg PO HS -Individual, group and milieu tx -Neurology consult appreciated -Urology consult appreciated -Disposition planning in progress, patient will likely need fdc placement ; awaiting evaluation by [facility] Estimated Date of D/C: 12/15/16
[2016-12-08] MEDS: Pantoprazole 40 mg EC Tab PO SCH (09:28)
[2016-12-08] MEDS: Lactobacillus Acidophilus 500 MU Cap PO SCH ×2 (09:42→18:00)
[2016-12-09] MEDS: Pantoprazole 40 mg EC Tab PO SCH (08:37)
[2016-12-09] MEDS: Lactobacillus Acidophilus 500 MU Cap PO SCH ×2 (08:37→16:40)
--- NOTE | 2016-12-09 11:33 | PCM.PYCHPN ---
Psychiatric Progress Note - Psychiatric Progress Note Patient seen today, length of contact: discussed with team Patient Chief Complaint: no complaints Problems Identified/Issues Discussed: pt has no complaints of medication side effects.. is guarded with this data analyst report writer. denies suicidal thoughts. Medication Change: No Medical Record Reviewed: Yes Mental Status Examination - Cognitive Function Orientation: Person, Place, Situation, Time Memory: Intact Attention: WNL Concentration: WNL Association: WNL Fund of Knowledge: WN Decription of patient's judgement and insights: fair - Mood Mood: Neutral - Affect Affect: Constricted - Speech Speech: Soft - Formal Thought Process Formal Thought Process: No Impairment - Suicidal Ideation Suicidal Ideation: No - Homicidal Ideation Homicidal Ideation: No Goal/Treatment Plan - Goal/Treatment Plan Need for Continued Stay: Severe depression anxiety, Severe functional impairment Progress Toward Problem(s) and Goals/Treatment Plan: major depression continue current treatment continue care per primary team Estimated Date of D/C: 12/15/16
--- NOTE | 2016-12-09 17:22 | CP.PCM.PN ---
Subjective - Date & Time of Evaluation Date of Evaluation: 12/09/16 Time of Evaluation: 17:00 Objective - Vital Signs/Intake and Output Vital Signs (last 24 hours): Temp Pulse Resp BP Pulse Ox 97.5 F L 67 19 88/61 L 98 12/09/16 15:43 12/09/16 15:43 12/09/16 15:43 12/09/16 15:43 11/08/16 21:59 - Medications Medications: Current Medications Acetaminophen (Tylenol 325mg Tab) 650 mg PO Q4 PRN PRN Reason: Pain, moderate (4-7) Al Hydrox/Mg Hydrox/Simethicone (Maalox Plus 30 Ml) 30 ml PO Q4 PRN PRN Reason: Dyspepsia Bismuth Subsalicylate (Pepto-Bismol) 524 mg PO Q4 PRN PRN Reason: Diarrhea Last Admin: 11/30/16 17:57 Dose: 524 mg Clotrimazole (Lotrimin 1% Cream) 1 applic TOP BID [facility] Last Admin: 12/09/16 16:40 Dose: 1 applic Cyanocobalamin (Vitamin B12 1000 Mcg Tab) 1,000 mcg PO DAILY [facility] Last Admin: 12/09/16 08:37 Dose: 1,000 mcg Folic Acid (Folic Acid) 1 mg PO DAILY [facility] Last Admin: 12/09/16 08:37 Dose: 1 mg Lactobacillus Acidophilus (Bacid Acidophilus) 1 cap PO BID [facility] Last Admin: 12/09/16 16:40 Dose: 1 cap Magnesium Hydroxide (Milk Of Magnesia) 30 ml PO HS PRN PRN Reason: Constipation Nystatin (Nystop Topical Powder) 1 applic TOP BID [facility] Last Admin: 12/09/16 16:40 Dose: 1 appl Pantoprazole Sodium (Protonix Ec Tab) 40 mg PO DAILY [facility] Last Admin: 12/09/16 08:37 Dose: 40 mg Quetiapine Fumarate (Seroquel) 50 mg PO HS [facility] Last Admin: 12/08/16 21:05 Dose: 50 mg Sertraline HCl (Zoloft) 100 mg PO DAILY [facility] Last Admin: 12/09/16 08:37 Dose: 100 mg Sucralfate (Carafate Oral Susp) 1 gm PO QID PRN PRN Reason: Indigestion / Heartburn Thiamine HCl (Vitamin B1 Tab) 100 mg PO DAILY [facility] Last Admin: 12/09/16 08:37 Dose: 100 mg Trimethobenzamide HCl (Tigan) 200 mg IM Q6 PRN PRN Reason: nausea and vomitting - Labs Labs: 12/04/16 16:30 12/04/16 16:30 Assessment and Plan (1) Prostate cancer Status: Chronic (2) Adjustment disorder Status: Acute (3) Enterocolitis Status: Resolved (4) Dental caries Status: Chronic (5) Anemia Status: Chronic (6) Ischemic stroke of frontal lobe Status: Deleted
[2016-12-10] MEDS: Pantoprazole 40 mg EC Tab PO SCH (09:18)
[2016-12-10] MEDS: Lactobacillus Acidophilus 500 MU Cap PO SCH ×2 (09:21→16:15)
--- NOTE | 2016-12-10 14:25 | PCM.PYCHPN ---
Psychiatric Progress Note - Psychiatric Progress Note Patient seen today, length of contact: discussed with team Patient Chief Complaint: no complaints Problems Identified/Issues Discussed: pt still isolates in room. no c/o medication side effects. no agitation or aggression. Medication Change: No Medical Record Reviewed: Yes Mental Status Examination - Cognitive Function Orientation: Person, Place, Situation, Time Memory: Intact Attention: WNL Concentration: WNL Association: WNL Fund of Knowledge: WN Decription of patient's judgement and insights: fair - Mood Mood: Neutral - Affect Affect: Constricted - Speech Speech: Soft - Formal Thought Process Formal Thought Process: No Impairment - Suicidal Ideation Suicidal Ideation: No - Homicidal Ideation Homicidal Ideation: No Goal/Treatment Plan - Goal/Treatment Plan Need for Continued Stay: Severe depression anxiety, Severe functional impairment Progress Toward Problem(s) and Goals/Treatment Plan: major depression continue current treatment continue care per primary team Estimated Date of D/C: 12/15/16
--- NOTE | 2016-12-10 18:52 | CP.PCM.PN ---
Subjective - Date & Time of Evaluation Date of Evaluation: 12/10/16 Time of Evaluation: 16:50 Objective - Vital Signs/Intake and Output Vital Signs (last 24 hours): Temp Pulse Resp BP Pulse Ox 98.2 F 62 19 96/51 L 98 12/10/16 15:31 12/10/16 15:31 12/10/16 15:31 12/10/16 15:31 11/08/16 21:59 - Medications Medications: Current Medications Acetaminophen (Tylenol 325mg Tab) 650 mg PO Q4 PRN PRN Reason: Pain, moderate (4-7) Al Hydrox/Mg Hydrox/Simethicone (Maalox Plus 30 Ml) 30 ml PO Q4 PRN PRN Reason: Dyspepsia Bismuth Subsalicylate (Pepto-Bismol) 524 mg PO Q4 PRN PRN Reason: Diarrhea Last Admin: 11/30/16 17:57 Dose: 524 mg Clotrimazole (Lotrimin 1% Cream) 1 applic TOP BID [facility] Last Admin: 12/10/16 16:20 Dose: 1 applic Cyanocobalamin (Vitamin B12 1000 Mcg Tab) 1,000 mcg PO DAILY [facility] Last Admin: 12/10/16 09:19 Dose: 1,000 mcg Cyanocobalamin (Vitamin B12 1000 Mcg Tab) 1,000 mcg PO DAILY [facility] Folic Acid (Folic Acid) 1 mg PO DAILY [facility] Last Admin: 12/10/16 09:17 Dose: 1 mg Folic Acid (Folic Acid) 1 mg PO DAILY [facility] Lactobacillus Acidophilus (Bacid Acidophilus) 1 cap PO BID [facility] Last Admin: 12/10/16 16:15 Dose: 1 cap Magnesium Hydroxide (Milk Of Magnesia) 30 ml PO HS PRN PRN Reason: Constipation Nystatin (Nystop Topical Powder) 1 applic TOP BID [facility] Last Admin: 12/10/16 16:20 Dose: 1 appl Pantoprazole Sodium (Protonix Ec Tab) 40 mg PO DAILY [facility] Last Admin: 12/10/16 09:18 Dose: 40 mg Pantoprazole Sodium (Protonix Ec Tab) 40 mg PO DAILY [facility] Quetiapine Fumarate (Seroquel) 50 mg PO HS [facility] Last Admin: 12/09/16 21:10 Dose: 50 mg Sertraline HCl (Zoloft) 100 mg PO DAILY [facility] Last Admin: 12/10/16 09:19 Dose: 100 mg Sucralfate (Carafate Oral Susp) 1 gm PO QID PRN PRN Reason: Indigestion / Heartburn Thiamine HCl (Vitamin B1 Tab) 100 mg PO DAILY [facility] Last Admin: 12/10/16 09:18 Dose: 100 mg Thiamine HCl (Vitamin B1 Tab) 100 mg PO DAILY [facility] Trimethobenzamide HCl (Tigan) 200 mg IM Q6 PRN PRN Reason: nausea and vomitting - Labs Labs: 12/04/16 16:30 12/04/16 16:30 Assessment and Plan (1) Prostate cancer Status: Chronic (2) Adjustment disorder Status: Acute (3) Enterocolitis Status: Resolved (4) Dental caries Status: Chronic (5) Anemia Status: Chronic (6) Ischemic stroke of frontal lobe Status: Deleted
[2016-12-11] MEDS: Pantoprazole 40 mg EC Tab PO SCH (08:37)
--- NOTE | 2016-12-11 08:37 | PCM.PYCHPN ---
Psychiatric Progress Note - Psychiatric Progress Note Patient seen today, length of contact: Patient evaluated, chart reviewed, case discussed with team Patient Chief Complaint: "I'm fine" Problems Identified/Issues Discussed: No significant events over the weekend. Patient encouraged to leave his room more and engage in groups, but he continues to have isolative behaviors. He seems disinterested in engaging in groups and peers at times. No AH/VH/ Paranoia. Diagnostic Results: 11/21/16- Head CT- No intracranial mass, hemorrahage or evidence of acute infarct. 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 Age related atrophy and chronic white matter ischemic change. 11/24/16- MRA brain-No evidence of occlusion or significant stenosis. 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 Note that these findings were discussed with 3 Anmol Naranjo at approximately 1:55 pm with written down and read back verification. 11/24/16- MRI Brain w/ contrast- No acute intracranial hemorrhage or infarct. There is elliptical shaped area of cystic encephalomalacia right frontal region with surrounding hemosiderin. This could represent old hemorrhagic infarct. Suspect minimal chronic periventricular white matter ischemic changes. Moderate generalized volume loss Medication Change: No Medical Record Reviewed: Yes Mental Status Examination - Cognitive Function Orientation: Person, Place, Situation, Time Memory: Intact Attention: WNL Concentration: WNL Association: WNL Fund of Knowledge: [facility] Decription of patient's judgement and insights: Fair I/J - Mood Mood: Neutral - Affect Affect: Constricted - Speech Speech: Soft - Formal Thought Process Formal Thought Process: No Impairment Psychotic Thoughts and Behaviors: Denies AH/VH/paranoia/delusions - Suicidal Ideation Suicidal Ideation: No - Homicidal Ideation Homicidal Ideation: No Goal/Treatment Plan - Goal/Treatment Plan Need for Continued Stay: Severe depression anxiety, Severe functional impairment Progress Toward Problem(s) and Goals/Treatment Plan: Impression: 70 year old, Single, , Male, w/ history of prostate cancer and osteoporosis, referred to ED due to hoarding behaviors, recently evicted, likely has major depressive disorder, now improving. Plan: -Continue Zoloft 100 mg PO Daily and continue Seroquel 50 mg PO HS -Individual, group and milieu tx -Neurology consult appreciated -Urology consult appreciated -Disposition planning in progress, patient will likely need terminal system operator placement ; awaiting evaluation by [facility] Estimated Date of D/C: 12/15/16
[2016-12-11] MEDS: Lactobacillus Acidophilus 500 MU Cap PO SCH ×2 (08:38→17:26)
--- NOTE | 2016-12-11 22:56 | CP.PCM.PN ---
Subjective - Date & Time of Evaluation Date of Evaluation: 12/11/16 Time of Evaluation: 11:30 Objective - Vital Signs/Intake and Output Vital Signs (last 24 hours): Temp Pulse Resp BP Pulse Ox 97.4 F L 58 L 19 90/61 L 98 12/11/16 15:45 12/11/16 15:45 12/11/16 15:45 12/11/16 15:45 11/08/16 21:59 - Medications Medications: Current Medications Acetaminophen (Tylenol 325mg Tab) 650 mg PO Q4 PRN PRN Reason: Pain, moderate (4-7) Al Hydrox/Mg Hydrox/Simethicone (Maalox Plus 30 Ml) 30 ml PO Q4 PRN PRN Reason: Dyspepsia Bismuth Subsalicylate (Pepto-Bismol) 524 mg PO Q4 PRN PRN Reason: Diarrhea Last Admin: 11/30/16 17:57 Dose: 524 mg Clotrimazole (Lotrimin 1% Cream) 1 applic TOP BID [facility] Last Admin: 12/11/16 17:18 Dose: 1 applic Cyanocobalamin (Vitamin B12 1000 Mcg Tab) 1,000 mcg PO DAILY [facility] Last Admin: 12/11/16 08:36 Dose: 1,000 mcg Folic Acid (Folic Acid) 1 mg PO DAILY [facility] Last Admin: 12/11/16 08:39 Dose: 1 mg Lactobacillus Acidophilus (Bacid Acidophilus) 1 cap PO BID [facility] Last Admin: 12/11/16 17:26 Dose: 1 cap Magnesium Hydroxide (Milk Of Magnesia) 30 ml PO HS PRN PRN Reason: Constipation Nystatin (Nystop Topical Powder) 1 applic TOP BID [facility] Last Admin: 12/11/16 17:18 Dose: 1 appl Pantoprazole Sodium (Protonix Ec Tab) 40 mg PO DAILY [facility] Last Admin: 12/11/16 08:37 Dose: 40 mg Quetiapine Fumarate (Seroquel) 50 mg PO HS [facility] Last Admin: 12/11/16 21:29 Dose: 50 mg Sertraline HCl (Zoloft) 100 mg PO DAILY [facility] Last Admin: 12/11/16 08:36 Dose: 100 mg Thiamine HCl (Vitamin B1 Tab) 100 mg PO DAILY [facility] Last Admin: 12/11/16 08:43 Dose: 100 mg - Labs Labs: 12/04/16 16:30 12/04/16 16:30 Assessment and Plan (1) Prostate cancer Status: Chronic (2) Adjustment disorder Status: Acute (3) Enterocolitis Status: Resolved (4) Dental caries Status: Chronic (5) Anemia Status: Chronic (6) Ischemic stroke of frontal lobe Status: Deleted
[2016-12-12] MEDS: Lactobacillus Acidophilus 500 MU Cap PO SCH ×2 (09:00→16:08)
[2016-12-12] MEDS: Pantoprazole 40 mg EC Tab PO SCH (09:01)
--- NOTE | 2016-12-12 10:03 | PCM.PYCHPN ---
Psychiatric Progress Note - Psychiatric Progress Note Patient seen today, length of contact: Patient evaluated, chart reviewed, case discussed with team Patient Chief Complaint: "I'm fine" Problems Identified/Issues Discussed: No significant events overnight. Patient encouraged to leave his room more and engage in groups, but he continues to have isolative behaviors. He reports that his mood is stable and has no acute complaints. No AH/VH/Paranoia. Diagnostic Results: 11/21/16- Head CT- No intracranial mass, hemorrahage or evidence of acute infarct. 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 Age related atrophy and chronic white matter ischemic change. 11/24/16- MRA brain-No evidence of occlusion or significant stenosis. 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 Note that these findings were discussed with 3 Anmol Naranjo at approximately 1:55 pm with written down and read back verification. 11/24/16- MRI Brain w/ contrast- No acute intracranial hemorrhage or infarct. There is elliptical shaped area of cystic encephalomalacia right frontal region with surrounding hemosiderin. This could represent old hemorrhagic infarct. Suspect minimal chronic periventricular white matter ischemic changes. Moderate generalized volume loss Medication Change: No Medical Record Reviewed: Yes Mental Status Examination - Cognitive Function Orientation: Person, Place, Situation, Time Memory: Intact Attention: WNL Concentration: WNL Association: WNL Fund of Knowledge: [facility] Decription of patient's judgement and insights: Fair I/J - Mood Mood: Neutral - Affect Affect: Broad - Speech Speech: Soft - Formal Thought Process Formal Thought Process: No Impairment Psychotic Thoughts and Behaviors: Denies AH/VH/paranoia/delusions - Suicidal Ideation Suicidal Ideation: No - Homicidal Ideation Homicidal Ideation: No Goal/Treatment Plan - Goal/Treatment Plan Progress Toward Problem(s) and Goals/Treatment Plan: Impression: 70 year old, Single, , Male, w/ history of prostate cancer and osteoporosis, referred to ED due to hoarding behaviors, recently evicted, likely has major depressive disorder, now improved. Patient is psychiatrically stable for discharge. Plan: -Continue Zoloft 100 mg PO Daily and continue Seroquel 50 mg PO HS -Individual, group and milieu tx -Neurology consult appreciated -Urology consult appreciated -Disposition planning in progress: patient being referred to nursing homes Estimated Date of D/C: 12/15/16
--- NOTE | 2016-12-12 23:49 | CP.PCM.PN ---
Subjective - Date & Time of Evaluation Date of Evaluation: 12/12/16 Time of Evaluation: 16:00 Objective - Vital Signs/Intake and Output Vital Signs (last 24 hours): Temp Pulse Resp BP Pulse Ox 97.1 F L 61 18 84/59 L 98 12/12/16 16:17 12/12/16 16:17 12/12/16 16:17 12/12/16 16:17 11/08/16 21:59 - Medications Medications: Current Medications Acetaminophen (Tylenol 325mg Tab) 650 mg PO Q4 PRN PRN Reason: Pain, moderate (4-7) Al Hydrox/Mg Hydrox/Simethicone (Maalox Plus 30 Ml) 30 ml PO Q4 PRN PRN Reason: Dyspepsia Bismuth Subsalicylate (Pepto-Bismol) 524 mg PO Q4 PRN PRN Reason: Diarrhea Last Admin: 11/30/16 17:57 Dose: 524 mg Clotrimazole (Lotrimin 1% Cream) 1 applic TOP BID [facility] Last Admin: 12/12/16 16:08 Dose: 1 applic Cyanocobalamin (Vitamin B12 1000 Mcg Tab) 1,000 mcg PO DAILY [facility] Last Admin: 12/12/16 09:02 Dose: 1,000 mcg Folic Acid (Folic Acid) 1 mg PO DAILY [facility] Last Admin: 12/12/16 09:02 Dose: 1 mg Lactobacillus Acidophilus (Bacid Acidophilus) 1 cap PO BID [facility] Last Admin: 12/12/16 16:08 Dose: 1 cap Magnesium Hydroxide (Milk Of Magnesia) 30 ml PO HS PRN PRN Reason: Constipation Nystatin (Nystop Topical Powder) 1 applic TOP BID [facility] Last Admin: 12/12/16 16:08 Dose: 1 appl Pantoprazole Sodium (Protonix Ec Tab) 40 mg PO DAILY [facility] Last Admin: 12/12/16 09:01 Dose: 40 mg Quetiapine Fumarate (Seroquel) 50 mg PO HS [facility] Last Admin: 12/12/16 21:55 Dose: 50 mg Sertraline HCl (Zoloft) 100 mg PO DAILY [facility] Last Admin: 12/12/16 09:03 Dose: 100 mg Thiamine HCl (Vitamin B1 Tab) 100 mg PO DAILY [facility] Last Admin: 12/12/16 09:01 Dose: 100 mg - Labs Labs: 12/04/16 16:30 12/04/16 16:30 Assessment and Plan (1) Prostate cancer Status: Chronic (2) Adjustment disorder Status: Acute (3) Enterocolitis Status: Resolved (4) Dental caries Status: Chronic (5) Anemia Status: Chronic (6) Ischemic stroke of frontal lobe Status: Deleted
[2016-12-13 06:14] VITALS: BP 91/59; PULSE 62; RESP 19; TEMP 97.2
[2016-12-13] MEDS: Pantoprazole 40 mg EC Tab PO SCH (08:30)
--- NOTE | 2016-12-13 09:55 | PCM.PYCHDC ---
Mental Status Examination - Mental Status Examination Orientation: Person, Place, Situation, Time Memory: Intact Mood: Neutral Affect: Broad Speech: Appropriate Attention: WNL Concentration: WNL Association: WNL Fund of Knowledge: WNL Formal Thought Process: No Impairment Description of patient's judgement and insight: Fair I/J Psychotic Thoughts and Behaviors: Denies AH/VH/paranoia/delusions Suicidal Ideation: No Current Homicidal Ideation?: No Discharge Summary - Discharge Note Reason for Hospitalization: 70 year old, Single, , Male, w/ history of prostate cancer and osteoporosis, referred to ED due to hoarding behaviors. Pt stated that he was evicted from his co-op apartment since he is not able to pay his 2 bedroom apartment ever since the rent has increased. He reports feeling depressed due to his new homelessness. He also expressed concerns that his memory is worsening. As per EMS, pt presented to be a hoarder and has spoiled food all throughout his home. Pt has soiled fecal all over his house, and was covered in feces as per EMS report. Pt stated that he has been suffering from Diarrhea among other medical conditions. Pts affect was flat, and appeared to be guarded. Pt is currently a poor historian. Pt appears to have poor ADLs as evidenced by poor grooming, disheveled, long nails, and bad body odor. Pt appeared to look fragile, and ill. Pt denied having any psychiatric tx or hx. Pt reported having no financial support system at this time. Pt denied any thoughts of hurting self or others. Pt was calm and cooperative. Pts affect was congruent to his mood. Pt denied A/V/T hallucinations. Pt is oriented x3. Medical History: Prostate Cancer, Osteoporosis, HTN Past Psychiatric History: No significant psychiatric history, no admissions, no outpatient treatment, no current psychiatric medications or suicide attempts. Social History: +Hoarding, just evicted. Never , has one child (not currently in contact with). On SSI and has medicare. No current Home Health aide. No drugs/alcohol. +Cigarettes x50 years, stopped 1 year ago. 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 Family History: Mother with Alzheimers disease, no other family psychiatric history. Allergies: NKDA Laboratory Data: 11/21/16- Head CT- No intracranial mass, hemorrahage or evidence of acute infarct. 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 Age related atrophy and chronic white matter ischemic change. 11/24/16- MRA brain-No evidence of occlusion or significant stenosis. 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 Note that these findings were discussed with 3 [place] Nurse Jose A at approximately 1:55 pm with written down and read back verification. 11/24/16- MRI Brain w/ contrast- No acute intracranial hemorrhage or infarct. There is elliptical shaped area of cystic encephalomalacia right frontal region with surrounding hemosiderin. This could represent old hemorrhagic infarct. Suspect minimal chronic periventricular white matter ischemic changes. Moderate generalized volume loss Consultations:: List each consultation separately and include: 1. Reason for request. 2. Findings. 3. Follow-up Consultations: Neurology consult- Recommends outpatient follow-up with neurosurgeon re: brain aneurysm Urologist- Recommends repeat PSA and evaluation for possible radiation breakthrough prostate cancer as an outpatient Summary of Hospital Course include:: 1. Description of specific treatment plan utilized for patients during their course of treatmen. 2. Summarize the time- course for resolution of acute symptoms and/or regressed behaviors. 3. Describe issues identified and worked on during hospitalization. 4. Describe medication utilized. 5. Describe medical problems identified and treated. 6. Reassessment of suicide risk Summary of Hospital Course: Patient was admitted to the geriatric unit and stabilized on Zoloft and Seroquel. His mood improved over the course of hospitalization and he no longer reports depressive symptoms. Patient is psychiatrically stable for discharge. He participated in individual and group therapy. - Final Diagnosis (DSM 5) Condition upon Discharge: STABLE DSM 5: Major Depressive Disorder Disposition: TRANSF TO SNF Follow-up Treatment Plan: Impression: 70 year old, Single, , Male, w/ history of prostate cancer and osteoporosis, referred to ED due to hoarding behaviors, recently evicted, likely has major depressive disorder, now improved. Patient is psychiatrically stable for discharge. Plan: -Continue Zoloft 100 mg PO Daily and continue Seroquel 50 mg PO HS -Transfer to SNF - Smoking Cessation Smoking Cessation Medication prescribed: No Reason for not providing: Not indicated - Antipsychotic Medications Pt discharged on 2 or more routine antipsychotic medications: No
--- NOTE | 2016-12-13 11:06 | CP.PCM.DIS ---
Provider - Provider Date of Admission: 11/08/16 18:13 Attending physician: Raman Dickinson MD Time Spent in preparation of Discharge (in minutes): 25 Diagnosis - Discharge Diagnosis (1) Prostate cancer Status: Chronic Priority: Low (2) Adjustment disorder Status: Acute Priority: High (3) Enterocolitis Status: Resolved Priority: High (4) Dental caries Status: Chronic Priority: Low (5) Anemia Status: Chronic Priority: Low (6) Ischemic stroke of frontal lobe Status: Deleted Hospital Course - Lab Results Lab Results: Micro Results 11/22/16 21:38 Urine,Clean Catch Urine Culture - Final No Growth (<1,000 CFU/ML) Most Recent Lab Values WBC 6.8 K/uL (4.8-10.8) 12/04/16 16:30 RBC 3.62 Mil/uL (4.40-5.90) L 12/04/16 16:30 Hgb 10.9 g/dL (12.0-18.0) L 12/04/16 16:30 Hct 32.1 % (35.0-51.0) L 12/04/16 16:30 MCV 88.8 fl (80.0-94.0) 12/04/16 16:30 MCH 30.2 pg (27.0-31.0) 12/04/16 16:30 MCHC 34.0 g/dL (33.0-37.0) 12/04/16 16:30 RDW 15.2 % (11.5-14.5) H 12/04/16 16:30 Plt Count 364 K/uL (130-400) D 12/04/16 16:30 MPV 6.5 fl (7.2-11.7) L 12/04/16 16:30 Neut % (Auto) 60.3 % (50.0-75.0) 12/04/16 16:30 Lymph % (Auto) 29.3 % (20.0-40.0) 12/04/16 16:30 [place] % (Auto) 7.2 % (0.0-10.0) 12/04/16 16:30 Eos % (Auto) 2.7 % (0.0-4.0) 12/04/16 16:30 Baso % (Auto) 0.5 % (0.0-2.0) 12/04/16 16:30 Neut # 4.1 K/uL (1.8-7.0) 12/04/16 16:30 Lymph # 2.0 K/uL (1.0-4.3) 12/04/16 16:30 [place] # 0.5 K/uL (0.0-0.8) 12/04/16 16:30 Eos # 0.2 K/uL (0.0-0.7) 12/04/16 16:30 Baso # 0.0 K/uL (0.0-0.2) 12/04/16 16:30 Sodium 142 mmol/l (132-148) 12/04/16 16:30 Potassium 4.7 MMOL/L (3.6-5.0) 12/04/16 16:30 Chloride 105 mmol/L (98-107) 12/04/16 16:30 Carbon Dioxide 27 mmol/L (22-30) 12/04/16 16:30 Anion Gap 16 (10-20) 12/04/16 16:30 BUN 26 mg/dl (9-20) H 12/04/16 16:30 Creatinine 0.8 mg/dL (0.8-1.5) 12/04/16 16:30 Est GFR ( Amer) > 60 12/04/16 16:30 Est GFR (Non-Af Amer) > 60 12/04/16 16:30 Random Glucose 106 mg/dL (75-110) 12/04/16 16:30 Calcium 9.3 mg/dL (8.4-10.2) 12/04/16 16:30 Ferritin 144.0 ng/mL 11/09/16 07:16 Total Bilirubin 0.3 mg/dl (0.2-1.3) 11/22/16 07:05 AST 24 U/L (17-59) 11/22/16 07:05 ALT 10 U/L (21-72) L D 11/22/16 07:05 Alkaline Phosphatase 57 U/L (38-126) 11/22/16 07:05 Total Protein 6.6 G/DL (6.3-8.2) 11/22/16 07:05 Albumin 3.2 g/dL (3.5-5.0) L 11/22/16 07:05 Globulin 3.4 gm/dL (2.2-3.9) 11/22/16 07:05 Albumin/Globulin Ratio 0.9 (1.0-2.1) L 11/22/16 07:05 Free PSA 1.2 ng/mL (()) 11/13/16 15:15 % Free PSA 14 Percent (>25) L 11/13/16 15:15 Total PSA 8.6 ng/mL (<=4.0) H 11/13/16 15:15 Prostate Cancer Risk 28 Percent (()) 11/13/16 15:15 Vitamin B12 261 pg/mL (239-931) 11/09/16 07:16 Folate 4.6 ng/mL 11/09/16 07:16 Free T4 0.94 ng/dL (0.78-2.19) 11/09/16 07:16 Thyroxine (T4) 5.94 ug/dl (5.5-11.0) 11/09/16 07:16 TSH 3rd Generation 2.49 mIU/ML (0.46-4.68) 11/09/16 07:16 Urine Color Yellow (YELLOW) 11/21/16 15:00 Urine Clarity Slighty-cloudy (Clear) 11/21/16 15:00 Urine pH 6.0 (5.0-8.0) 11/21/16 15:00 Ur Specific [place] 1.026 (1.003-1.030) 11/21/16 15:00 Urine Protein Negative mg/dL (NEGATIVE) 11/21/16 15:00 Urine Glucose (UA) Neg mg/dL (Normal) 11/21/16 15:00 Urine Ketones Negative mg/dL (NEGATIVE) 11/21/16 15:00 Urine Blood Small (NEGATIVE) 11/21/16 15:00 Urine Nitrate Negative (NEGATIVE) 11/21/16 15:00 Urine Bilirubin Negative (NEGATIVE) 11/21/16 15:00 Urine Urobilinogen 0.2-1.0 mg/dL (0.2-1.0) 11/21/16 15:00 Ur Leukocyte Esterase Large Trudy/uL (Negative) 11/21/16 15:00 Urine RBC (Auto) 18 /hpf (0-3) H 11/21/16 15:00 Urine Microscopic WBC 21 /hpf (0-5) H 11/21/16 15:00 Ur Squamous Epith Cells 4 /hpf (0-5) 11/21/16 15:00 Urine Bacteria Few (<OCC) H 11/21/16 15:00 Hyaline Casts 0-2 /hpf (0-2) 11/13/16 17:00 Urine Opiates Screen Negative (NEGATIVE) 11/08/16 17:10 Urine Methadone Screen Negative (NEGATIVE) 11/08/16 17:10 Ur Barbiturates Screen Negative (NEGATIVE) 11/08/16 17:10 Ur Phencyclidine Scrn Negative (NEGATIVE) 11/08/16 17:10 Ur Amphetamines Screen Negative (NEGATIVE) 11/08/16 17:10 U Benzodiazepines Scrn Negative (NEGATIVE) 11/08/16 17:10 U Oth Cocaine Metabols Negative (NEGATIVE) 11/08/16 17:10 U Cannabinoids Screen Negative (NEGATIVE) 11/08/16 17:10 RPR Nonreactive (NONREACTIVE) 11/09/16 07:16 Discharge Exam - Head Exam Head Exam: ATRAUMATIC, NORMAL INSPECTION, NORMOCEPHALIC Discharge Plan - Follow Up Plan Condition: STABLE Disposition: TRANSF TO SNF Instructions: Hypertension (DC), Hypertension (GEN) Referrals: [facility], [facility] [Other]
== END 2016-12-13 11:45 | DRG 881 ==
LOC: H.ER 11:57 → H.ERHOLD 18:13 → H.STEP 23:06
PROVIDERS: ADMIT Psychiatry & Neurology Psychiatry; ATTEND Psychiatry & Neurology Psychiatry
PROC: GZ51ZZZ Individual Psychotherapy, Behavioral (ICD-10-PCS; 2016-11-09)
PROC: GZHZZZZ Group Psychotherapy (ICD-10-PCS; principal; 2016-11-17)
DX: F43.21 Adjustment disorder with depressed mood (principal); N39.0 Urinary tract infection, site not specified; C61 Malignant neoplasm of prostate; D64.9 Anemia, unspecified; I10 Essential (primary) hypertension; S93.602A Unspecified sprain of left foot, initial encounter; K02.9 Dental caries, unspecified; K52.9 Noninfective gastroenteritis and colitis, unspecified; Z85.46 Personal history of malignant neoplasm of prostate; Z59.0 Homelessness; Z92.3 Personal history of irradiation; Z87.891 Personal history of nicotine dependence; M81.0 Age-related osteoporosis without current pathological fracture; N40.0 Benign prostatic hyperplasia without lower urinary tract symptoms; X58.XXXA Exposure to other specified factors, initial encounter; Y93.9 Activity, unspecified; Y92.9 Unspecified place or not applicable; Y99.9 Unspecified external cause status